=== PATIENT | female | born 1935 | race Caucasian/White ===

== ENCOUNTER → 2018-12-14 13:28 | Outpatient (CLI) | payer MEDICARE, SELFPAY ==
--- NOTE | 2018-12-14 13:33 | RAD_ITS ---
STUDY: X-RAY - LUMBAR SPINE REASON FOR EXAM: Female, 83 years old. Chronic lower back pain. TECHNIQUE: 3 view(s) of the lumbar spine were obtained. COMPARISON: MRI of the spine, June 09, 2015. FINDINGS: There is slight flattening of the lumbar lordosis. There is no substantial scoliosis. There is a normal alignment of the vertebrae. There is multilevel endplate spondylosis of the lumbar vertebrae. There is multi-level degenerative disc disease with multi-level disc space narrowing. There is no evidence of acute fracture or loss of vertebral axial height. Again seen are laminectomy defects at L4 and L5. There is atherosclerotic calcification of the abdominal aorta without a demonstrated aneurysm. RAD/Lumbar Spine 2 or 3 Views IMPRESSION: Degenerative and postsurgical changes of the spine, as detailed above. There is no major interval change when compared to the prior MRI. Electronically Signed: Emory Valentine DO at 17:24 EDT Tel [phone], Service support ,
== END ==
PROVIDERS: Family Provider Internal Medicine Cardiovascular Disease; PCP Internal Medicine Cardiovascular Disease; Referring Provider Anesthesiology Pain Medicine; Visit Provider Anesthesiology Pain Medicine
DX: M54.9 Dorsalgia, unspecified (principal)
CPT/HCPCS: 72100

== ENCOUNTER → 2020-04-14 16:51 | Outpatient (CLI) | payer MEDICARE, SELFPAY ==
[2020-04-14 17:31] LABS: Amphetamine Urine VISTA NEGATIVE (<1000 ng/mL); Barbiturate Urine VISTA NEGATIVE (< 200 ng/mL); Benzodiazepine Urine VISTA NEGATIVE (< 200 ng/mL); Cocaine Urine VISTA NEGATIVE (< 300 ng/mL); Ecstacy Urine VISTA NEGATIVE (< 500 ng/mL); Methadone Urine VISTA NEGATIVE (< 300 ng/mL); PCP Urine VISTA NEGATIVE (< 25 ng/mL); THC Urine VISTA NEGATIVE (< 50 ng/mL); Vista UDS pH Range 5
== END ==
PROVIDERS: PCP Internal Medicine; Referring Provider Anesthesiology Pain Medicine; Visit Provider Anesthesiology Pain Medicine
DX: F11.20 Opioid dependence, uncomplicated (principal)
CPT/HCPCS: 80307

== ENCOUNTER 2020-06-25 15:42 | Inpatient (IN) | payer MEDICARE, SELFPAY ==
[2020-06-25] VITALS (8 sets, daily range): BP systolic 137–171; BP diastolic 51–81; PULSE 71–82; RESP 16–24; TEMP 36.6–36.7; O2SAT 90–97; BMI 26.3; BMI 27.1
--- NOTE | 2020-06-25 16:08 | CT_ITS ---
STUDY: CT HEAD STROKE PROTOCOL W/O CONTRAST INJECTION REASON FOR EXAM: Female, 84 years old. His head, frequent falls, unsteady, hypertension, diabetes TECHNIQUE: Transaxial CT imaging of the brain was performed without administration of intravenous contrast material. Individualized dose optimization techniques were used for this CT. COMPARISON: No relevant priors. FINDINGS: Normal soft tissue structures. Normal calvarium. Mildly prominent ventricles and extra-axial spaces with frontal atrophy. Bilateral white matter microangiopathic ischemic changes of the cerebral hemispheres. Normal basal ganglia and thalami. Normal brainstem. Normal cerebellum. There is no intracranial hemorrhage. There are no findings of an acute ischemic infarction. Normal visualized paranasal sinuses. CT/Brain/Head without Contrast IMPRESSION: Age-related changes. No acute intracranial pathology of the brain. Electronically Signed: Stephon Bah DO at 17:24 EST Tel [phone], Service support ,
--- NOTE | 2020-06-25 16:09 | EKG12_ITS ---
Test Reason : Blood Pressure : / mmHG Vent. Rate : 078 BPM Atrial Rate : 077 BPM P-R Int : 000 ms QRS Dur : 078 ms QT Int : 402 ms P-R-T Axes : 000 014 015 degrees QTc Int : 458 ms Sinus vs Ectopic Atrial Rhythm Nonspecific ST and T wave abnormality Abnormal ECG Confirmed by SALLY ANDERSON, MANUELA ([id number]), technical editor JONNATHAN MCGINNIS ([id number]) on 06/30/2020 10:44:43 AM Referred By: TERRY Confirmed By:MANUELA ZAVALA MD
[2020-06-25 16:54] LABS: Absolute Lymphocyte Count 0.56 X10^3/uL (0.83-4.51); Absolute Neutrophil Count 10.9 X10^3/uL (2.0-7.7); Basophil# 0.05 X10^3/uL; Basophil% 0.4 % (0-1); Eosinophil# 0.14 X10^3/uL; Eosinophils% 1.1 % (0-5); Hematocrit 33.8 % (37-47); Hemoglobin 10.7 g/dL (12.0-15.0); Lymphocyte # 0.56 X10^3/ul (4.0); Lymphocyte % 4.5 % (19-41); Mean Corp Hgb Conc 31.7 g/dL (32-36); Mean Corpuscular Hgb 30.8 pg (27.0-32.0); Mean Corpuscular Volume 97.4 fL (81-99); Mean Platelet Vol. 9.7 fl (6.2-12.0); Monocyte# 0.66 X10^3/uL; Monocyte% 5.3 % (0-10); NRBC Flagged by Analyzer 0 % (0-5); Neutrophil % 88.3 % (47-70); POSITIVE DIFFERENTIAL YES; Platelet Count 300 K/mm3 (150-450); RBC Distribution Width CV 12.8 % (11.6-14.6); RBC Distribution Width SD 45.3 fl (35.1-43.9); Red Blood Count 3.47 M/mm3 (4.2-5.4); White Blood Count 12.4 K/mm3 (4.4-11.0)
--- NOTE | 2020-06-25 16:55 | RAD_ITS ---
STUDY: X-RAY CHEST REASON FOR EXAM: Female, 84 years old. Frequent falls TECHNIQUE: Frontal view COMPARISON: 11/28/2014 FINDINGS: The lungs are expanded. Interstitial prominence and patchy infiltrates, right more than left. Borderline size heart. Normal mediastinum and jazmyne. Normal visualized pulmonary arteries. Calcified aortic arch and descending thoracic aorta. Normal visualized thoracic spine. Normal visualized ribs, clavicles, and shoulders. There is no demonstrated abnormality of the visualized soft tissue structures of the upper abdomen. RAD/Chest 1 View (Portable) IMPRESSION: Interstitial prominence and patchy infiltrates, right more than left. Electronically Signed: Stephon Bah DO at 17:26 EST Tel [phone], Service support ,
[2020-06-25] MEDS: Diphth,Pertuss(Acell),Tet Vac 0.5 ML Vial IM (17:16)
[2020-06-25 17:17] LABS: Differential Indicated SCAN CRITERIA MET
[2020-06-25 17:20] LABS: Anisocytosis RARE; Macrocytosis RARE; Platelet Estimate ADEQUATE (ADEQ); Red Cell Morphology N CHROM NORMAL (NORM C&C)
--- NOTE | 2020-06-25 17:26 | ED.VISSUMM ---
- ER Visit Summary Date of Service: 06/25/20 Chief Complaint: Lightheaded, fall History of Present Illness: The patient is a [address] Rondon. She reports that 3 days ago she drank a small amount of a sample bottle of wine which was not homemade. She states that she woke up the next morning with her eyes crossed. When asked to further describe what this means she reports that she has felt unable to focus and has been lightheaded and off-balance since that time. States that when she got up that morning she fell and did hit her head. No loss of consciousness. She not on anticoagulants. She denies headache. No neck, shoulder, wrist, or hip pain. Patient does report that she has a skin tear to her right elbow. It is not painful. She is unsure of her last tetanus shot. She does on review of systems complain of a cough is been present for the past 2 weeks on and off. States that she has shortness of breath because of upper back pain. This is unchanged with movement or exertion. She has had chills. She denies any sick contacts. She does wear a mask. Patient reports that her upper back pain is fine at rest and it is 10 out of 10 with coughing. She denies any numbness, weakness, double vision, or blurred vision at this time. Physical Examination: Vitals: Stable. Afebrile. General: Well-nourished and well-developed. Head: Normocephalic atraumatic. Neck: Supple, no lymphadenopathy. No JVD. Nontender. Cardiovascular: Regular rate and rhythm. 2 out of 6 systolic murmur. Respiratory: No respiratory distress. Clear to auscultation bilaterally. Abdominal: Soft, nontender, nondistended, normal bowel sounds. No guarding, rebound, or peritoneal signs. Back: Nontender. No vertebral tenderness. No paraspinous muscular tenderness in the upper or lower back. Extremities: Nontender, no edema. 1.5 cm skin tear to the right olecranon process. No pain with range of motion. Skin: Normal color, no rash. Neurologic: Alert and oriented ?3. Cranial nerves II through XII are intact. Normal strength and sensation. Psych: Normal affect. Test Results: CBC shows a white count of 12.4 with 88 segmented neutrophils and 5 lymphocytes. H&H is 10.7 and 33.8. Chem-7 shows potassium of 5.4 (moderate hemolysis), chloride of 111, CO2 of 19, glucose of 201, BUN of 50, creatinine 4.36. Creatinine was 3.1?3.9 between 2012 and 2014. UA is negative. Troponin is negative. COVID-19 rapid antigen is negative. Clinical Impression(s) from Imaging Studies Brain CT 06/25/20 16:08 IMPRESSION: Age-related changes. No acute intracranial pathology of the brain. Electronically Signed: Stephon Bah DO at 17:24 EST Tel [phone], Service support , Chest X-Ray 06/25/20 16:55 IMPRESSION: Interstitial prominence and patchy infiltrates, right more than left. Electronically Signed: Stephon Bah DO at 17:26 EST Tel [phone], Service support , Emergency Department Course and Treatment: Patient is ambulatory pulse ox was 84% on room air. Orthostatic vital signs are negative. Patient had not taken her home medications. She was given Norvasc, atenolol, glimepiride here. She was given Rocephin and Zithromax IV. Treatment Plan: Patient was discussed with Dr. Dinero. She will be admitted to the hospital for further evaluation and treatment. Disposition: Admitted in improved condition. Impression: 1. Pneumonia. 2. Chronic renal insufficiency. 3. Hypoxia. This note was generated with [employer] dictation software. It may contain incorrect words, spelling, and punctuation that were not noted in review of the chart prior to signing ED Disposition - Plan for ED Patient: Referrals: Keo Rondon MD [Primary Care Provider] -
[2020-06-25 17:37] LABS: Anion Gap 6 (5-15); BUN 50 mg/dL (7-18); BUN/Creat Ratio 11.5 RATIO (10-20); Chloride 111 mmol/L (98-107); Creatinine, Serum 4.36 mg/dL (0.55-1.02); EST Glomerular Filtration Rate 10 mL/min (>60); Est Glom Filt Rate - Afr Amer 12 mL/min (>60); Estimated Creatinine Clearance 8.49 ml/min; Glucose 201 mg/dL (74-106); Potassium 5.4 mmol/L (3.5-5.1); Sodium Level 136 mmol/L (136-145)
[2020-06-25 17:43] LABS: Mucous, Urine 0 SEEN /hpf (<or=2+); Red Blood Cells-Urine 0 SEEN /hpf (0-5)
[2020-06-25 18:06] LABS: Color, Urine Yellow (Yellow); Glucose, Dipstick Normal (Normal); Ketone-Dipstick Negative (Negative); Leukocyte Esterase-Dipstick 100 /ul (Negative); Nitrite-Dipstick Negative (Negative); Occult Blood-Urine 10 /ul (Negative); Protein-Dipstick 100 mg/dl (Negative); Specific Gravity, Urine 1.015 (1.002-1.030); Urine Bilirubin Dipstick Negative (Negative); Urine Clarity Clear (Clear); Urine Urobilinogen Normal (Normal)
[2020-06-25 18:14] LABS: Bacteria RARE /hpf (None Seen); Squamous Epithelial Cells - UA 5-10 SEEN /hpf (5-10); White Blood Cells 0-5 SEEN /hpf (0-5)
[2020-06-25] MEDS: Ceftriaxone 1 GM/50 ML BAG IV (18:24)
[2020-06-25 18:27] LABS: D-Dimer Quantitative (DVT/PE) 2.88 FEU/ug/m (0.27-0.49)
--- NOTE | 2020-06-25 18:37 | HP.PCM_ITS ---
Problem List (1) Chronic back pain Status: Chronic Qualifiers: Back pain laterality: unspecified (2) Fe deficiency anemia Status: Chronic Qualifiers: Iron deficiency anemia type: unspecified iron deficiency Qualified Code(s): D50.9 - Iron deficiency anemia, unspecified (3) Hyperlipidemia Status: Chronic Qualifiers: Hyperlipidemia type: unspecified Qualified Code(s): E78.5 - Hyperlipidemia, unspecified (4) Hypertension Status: Chronic Qualifiers: Hypertension type: essential hypertension Qualified Code(s): I10 - Essential (primary) hypertension (5) Hypothyroid Status: Chronic Qualifiers: Hypothyroidism type: unspecified Qualified Code(s): E03.9 - Hypothyroidism, unspecified (6) Barretts esophagus Status: Chronic Qualifiers: Blank's esophagus type: with dysplasia of unspecified degree Qualified Code(s): K22.719 - Blank's esophagus with dysplasia, unspecified (7) GERD (gastroesophageal reflux disease) Status: Chronic Qualifiers: Esophagitis presence: esophagitis presence not specified Qualified Code(s): K21.9 - Gastro-esophageal reflux disease without esophagitis (8) Diabetes mellitus, type II Status: Chronic Qualifiers: Diabetes mellitus long term acute care registered nurse insulin use: with long term acute care registered nurse use Diabetes mellitus complication status: with other specified complication Qualified Code(s): E11.69 - Type 2 diabetes mellitus with other specified complication; Z79.4 - termite exterminator helper (current) use of insulin History of Present Illness Date of Admission: 06/25/20 Chief Complaint: SOB, fall - 2 days The patient is a 84 year old F with past medical history of hypertension, hyperlipidemia, type II DM, chronic back pain, history of Blank's esophagus/GERD who comes in with progressive shortness of breath, cough dog ongoing for couple of days and a fall of 1 day. Patient states that she has not been feeling well the last couple of days, she has chills but no fever, no loss of smell, no loss of taste, she has progressive shortness of breath. She complains of dizziness this morning, she felt off balance, she fell and hit her head and had a skin tear to her right elbow. At the time of being seen, patient stated that she felt a little better. Vitals in the ED showed temperature of 98.1F, heart rate 78 blood pressure 153/63, respiratory rate 78, SPO2 90% on room air, improved to 92% on 2 L of oxygen. BC count is 12.4, hemoglobin 10.7,. Hemoglobin was 11.4, platelet count 300, D-dimer is 2.88, sodium 136, potassium 5.4, chloride 101, bicarbonate 19, anion gap is 6, BUN is 50, creatinine 4.36, previous baseline was 3.6-3.9. UA is unremarkable. COVID-19 rapid antigen is negative. COVID-19 PCR is pending. Blood cultures are pending. CT scan of the brain showed age-related changes. No acute intracranial abnormalities. Chest x-ray shows interstitial prominence and patchy infiltrates, right more than left. Past Medical History Past Medical History (Chronic Problems): Chronic Problems Chronic back pain (Chronic) Fe deficiency anemia (Chronic) Chronic kidney disease (Chronic) Hyperlipidemia (Chronic) Overweight (BMI 25.0-29.9) (Chronic) Anemia of chronic disease (Chronic) Hypertension (Chronic) Hypothyroid (Chronic) Lumbar stenosis (Chronic) Barretts esophagus (Chronic) GERD (gastroesophageal reflux disease) (Chronic) Diabetes mellitus, type II (Chronic) Allergies No Known Allergies Allergy (Verified 03/16/13 18:59) Home Medications: Ambulatory Orders Medication Instructions Recorded Ezetimibe/Simvastatin [Vytorin 1 tablet PO DAILY 03/16/13 10-40 MG Tablet] Atenolol [Tenormin (beta kamron)] 50 mg PO DAILY #30 03/18/13 Ferrous Sulfate 325 mg PO DAILY #30 03/18/13 Levothyroxine [Synthroid] 75 mcg PO DAILY #30 03/18/13 Omeprazole [Prilosec] 20 mg PO DAILY #30 03/18/13 Biotin 1,000 mg PO DAILY 06/18/13 Glimepiride 4 mg PO BID 06/18/13 NIFEdipine [Procardia Xl] 60 mg PO DAILY 08/06/13 Oxycodone HCl/Acetaminophen 1 - 2 tablet PO Q6H PRN PRN #30 08/15/13 [Percocet 5-325] tablet Allopurinol 100 mg PO 06/25/20 Amlodipine [Norvasc] 10 mg PO DAILY 06/25/20 Atorvastatin Calcium [Lipitor] 40 mg PO QHS 06/25/20 Insulin Glargine [Lantus SoloStar 38 units SQ QHS 06/25/20 Pen] Surgical History: appendectomy, cholecystectomy - Open, hysterectomy, tonsillectomy, - - Back surgery, Cataract. Psychiatric History: No pertinent psych hx RELATIONSHIP ADVISOR History: No pertinent RELATIONSHIP ADVISOR history Lives: Spouse/ Significant Other Smoking Status: Former smoker Tobacco Use: Non-smoker Alcohol: Occasional - occasional beer Drugs: None - *Family History Maternal History Items: Heart Disease Paternal History Items: Unknown Sibling History Items: Diabetes, Heart Disease Review of Systems Constitutional: Reports: Anorexia, Chills, Malaise, Weakness, Fatigue. Denies: Fever, Night Sweats, Weight Change Eyes: Denies: Blurred vision, Cataracts, Conjunctivae Inflammation HEENT: Denies: Difficulty Swallowing, Head Aches, Hearing Changes, Sinus Congestion, Sinus Drainage Cardiovascular: Reports: Light Headedness. Denies: Chest Pain, Claudication, Orthopnea, Palpitations, Paroxysmal Noc. Dyspnea, Syncope Respiratory: Reports: Shortness of Breath, Shortness of breath at rest, S hortness of breath upon exertion, Sputum production. Denies: Cough Gastrointestinal: Denies: Abdominal Pain, Constipation, Hematemesis, Hematochezia, Nausea, Vomiting Genitourinary: Denies: Dysuria, Frequency, Incontinence Musculoskeletal: Denies: Joint Pain, Joint stiffness, Joint swelling, Joint Tenderness Skin: Denies: Pruritis, Rash, Wounds Neurological: Denies: Difficulty swallowing, Focal weakness, Numbness, Tingling Psychiatric: Denies: Anxiety, Depression, Homicidal Ideations, Suicidal Ideations Hematologic/ Lymphatic: Denies: Easy Bruising, Easy Bleeding VTE Information - Inpt Only VTE Present on Admission: No VTE Pharm Prophylaxis ordered?: Yes - Physical Exam Vitals/I&O's: Vital Signs Temp Pulse Resp BP Pulse Ox 97.9 F 72 24 H 153/71 H 97 06/25/20 18:28 06/25/20 18:28 06/25/20 18:28 06/25/20 18:28 06/25/20 18:28 Oxygen Flow Rate (L/min) 2 Oxygen Delivery Method Nasal Cannula Weight: 71.8 kg Body Mass Index (BMI) 26.3 Finger Stick Blood Glucose 142 General: Alert, Oriented x3, Cooperative, No apparent distress, - - On 2 L of oxygen HEENT: Atraumatic, PERRLA, EOMI, Normocephalic Oral: Moist Mucosa Neck: Supple Lungs: Diminished Cardiovascular: Regular rate, Regular Rhythm, Normal S1, Normal S2, No murmurs Abdomen: Bowel Sounds Present, Soft, Non Tender, Non-Distended, No Hepato- splenomegaly Extremities: Edema - Bilateral pedal edema +1 Skin: No rashes Musculoskeletal: No Tenderness to Palpation of Joints or Extremities Lymphatic: No Cervical, Supraclavicular, or Inguinal Adenopathy Neurological: Cranial nerves II-XII grossly intact, Neuro grossly intact Psych/Mental Status: Normal Affect, Appropriate Microbiology Past 72 Hours 06/25/20 16:30 Mucosa - Nose SARS-CoV-2 Antigen (Rapid) - Final Laboratory Results 06/25/20 16:30: WBC 12.4 H, RBC 3.47 L, Hgb 10.7 L, Hct 33.8 L, MCV 97.4, MCH 30.8, MCHC 31.7 L, RDW Std Deviation 45.3 H, RDW Coeff of Ritchie 12.8, Plt Count 300, MPV 9.7, Immature Gran % (Auto) 0.400, Neut % (Auto) 88.3 H, Lymph % (Auto) 4.5 L, [place] % (Auto) 5.3, Eos % (Auto) 1.1, Baso % (Auto) 0.4, Absolute Neuts (auto) 10.9 H, Absolute Lymphs (auto) 0.56 L, Nucleated RBC % 0, Differential Comment SEE COMMENT, Platelet Estimate ADEQUATE, RBC Morphology N CHROM, Anisocytosis RARE, Macrocytosis RARE 06/25/20 16:30: D-Dimer Quant (PE/DVT) 2.88 H* 06/25/20 16:30: Sodium 136, Potassium 5.4 H, Chloride 111 H, Carbon Dioxide 19.0 L, Anion Gap 6, BUN 50 H, Creatinine 4.36 H, Estim Creat Clear Calc 8.49, Est GFR (MDRD) Af Amer 12 L, Est GFR (MDRD) Non-Af 10 L, BUN/Creatinine Ratio 11.5, Glucose 201 H, Calcium 10.0, Troponin I < 0.015 06/25/20 17:15: Urine Color Yellow, Urine Clarity Clear, Urine pH 5.0, Ur Specific [place] 1.015, Urine Protein 100 H, Urine Glucose (UA) Normal, Urine Ketones Negative, Urine Occult Blood 10 H, Urine Nitrite Negative, Urine Bilirubin Negative, Urine Urobilinogen Normal, Ur Leukocyte Esterase 100 H, Urine RBC 0 SEEN, Urine WBC 0-5 SEEN, Ur Squamous Epith Cells 5-10 SEEN, Urine Bacteria RARE, Urine Mucus 0 SEEN 06/25/20 18:15: Lactic Acid Pending Current Medications Glimepiride (Glimepiride 4 Mg Tablet) 4 mg PO DAILY@0800 VANNESSA Azithromycin 500 mg/ Dextrose 255 mls @ 250 mls/hr IV X1 ONE Stop: 06/25/20 18:55 Assessment/Plan 1. Acute hypoxic respiratory insufficiency secondary to probable COVID-19 pneumonia Patient is on 2 L of oxygen, not on oxygen at home Continue with breathing treatments, po steroids, encourage use of incentive spirometer. Wean off oxygen for SPO2 more than 94% 2. Probable acute COVID-19 pneumonia, chest x-ray suspicious for interstitial prominence COVID-19 rapid antigen and PCR is negative Started on IV ceftriaxone and azithromycin, continue same Urine Legionella enterococcal antigen P.o. Decadron ID consult 3. RISHI on CKD stage IV, baseline creatinine is between 3.6-3.9 Admitted with creatinine of 4.36 Give gentle IV fluids at 50 cc an hour for 500 mL Repeat blood work in a.m. 4. Hyperkalemia, potassium is 5.4, not on potassium supplements likely secondary to #3 Repeat blood work in a.m. 5. Elevated D-dimer of 2.88, cannot do a CT of the chest on account of RISHI on CKD stage IV Started on therapeutic Lovenox We will get a VQ scan 6. HGypertension, uncontrolled, continue on amlodipine, atenolol 7. Type II DM, insulin-dependent, continue on home insulin regimen Continue with blood glucose checks with insulin sliding scale 8. Hypothyroidism, continue on Synthroid 9. Hyperlipidemia, continue on statin 10. DVT prophylaxis -therapeutic Lovenox 11. CODE STATUS: DNRCC I discussed and explained in details the various types of CODE STATUS-full code, DNR CCA, DNR CC. Patient chose DNR CC. She does not want to be resuscitated in the event of a cardiopulmonary arrest. Time spent discussing CODE STATUS 18 minutes Inpatient E&M: 74333 Init Hosp L3 Procedures: 33113 Advncd Care Plan 30 Min
[2020-06-25] MEDS: Enoxaparin 80 MG/0.8 ML Syringe 70 MG SC (18:57)
[2020-06-25] MEDS: HYDROcodone Bitartrate/Apap 5/325 Tablet PO (18:57)
[2020-06-25 18:58] LABS: Lactic Acid 1.4 mmol/L (0.4-1.9)
--- NOTE | 2020-06-25 20:28 | ED.RN ---
MS NOTIFIED HOME MEDS NOT GIVEN IN ED.
--- NOTE | 2020-06-25 20:36 | ED.RN ---
SPOUSE POORNIMA UPDATED ON ADMISSION, PHONE NUMBER FOR MS2 GIVEN, UPDATED ON VISITOR POLICY.
[2020-06-26] VITALS (7 sets, daily range): BP systolic 131–154; BP diastolic 56–73; PULSE 76–80; RESP 16–17; TEMP 36.6–37.2; O2SAT 90–97
[2020-06-26] MEDS: dexAMETHasone 2 MG TABLET 6 MG PO ×2 (00:14→08:08)
[2020-06-26] MEDS: Insulin Lispro 100 UNIT/ML INSULN.PEN SC ×5 (00:14→20:17)
[2020-06-26] MEDS: Atorvastatin Calcium 40 MG Tablet PO ×2 (00:15)
[2020-06-26] MEDS: 0.9% Normal Saline 1,000 ML 50 ML IV (00:15)
[2020-06-26] MEDS: Atenolol 50 MG Tablet PO ×2 (00:26→08:10)
[2020-06-26 03:41] LABS: Bedside Glucose 180 mg/dL (70-110)
[2020-06-26 05:29] LABS: Absolute Lymphocyte Count 0.42 X10^3/uL (0.83-4.51); Absolute Neutrophil Count 9.6 X10^3/uL (2.0-7.7); Basophil# 0.05 X10^3/uL; Basophil% 0.5 % (0-1); Eosinophil# 0.08 X10^3/uL; Eosinophils% 0.8 % (0-5); Hemoglobin 9.9 g/dL (12.0-15.0); Lymphocyte # 0.42 X10^3/ul (4.0); Mean Corp Hgb Conc 30.9 g/dL (32-36); Mean Corpuscular Hgb 30.2 pg (27.0-32.0); Mean Corpuscular Volume 97.6 fL (81-99); Mean Platelet Vol. 9.8 fl (6.2-12.0); Monocyte# 0.26 X10^3/uL; Monocyte% 2.5 % (0-10); NRBC Flagged by Analyzer 0 % (0-5); Neutrophil # 9.62 X10^3/uL (2.7-7.7); Neutrophil % 91.9 % (47-70); POSITIVE DIFFERENTIAL YES; Platelet Count 292 K/mm3 (150-450); RBC Distribution Width CV 12.9 % (11.6-14.6); RBC Distribution Width SD 46.5 fl (35.1-43.9); Red Blood Count 3.28 M/mm3 (4.2-5.4); White Blood Count 10.5 K/mm3 (4.4-11.0)
[2020-06-26 05:31] LABS: Differential Indicated SCAN CRITERIA MET
[2020-06-26 05:45] LABS: ALB/GLOB Ratio 0.6 RATIO (0.9-2.4); AST(SGOT) 31 U/L (15-37); Alanine Aminotransfer ALT/SGPT 50 U/L (13-56); Albumin, Serum 2.9 g/dL (3.2-5.0); Alkaline Phosphatase 141 U/L (45-117); Anion Gap 9 (5-15); BUN 46 mg/dL (7-18); BUN/Creat Ratio 11.3 RATIO (10-20); Calcium,Total 9.7 mg/dL (8.5-10.1); Chloride 110 mmol/L (98-107); Creatinine, Serum 4.07 mg/dL (0.55-1.02); EST Glomerular Filtration Rate 11 mL/min (>60); Est Glom Filt Rate - Afr Amer 13 mL/min (>60); Estimated Creatinine Clearance 8.73 ml/min; Globulin 4.5 g/dL (2.2-4.2); Glucose 153 mg/dL (74-106); Potassium 4.4 mmol/L (3.5-5.1); Protein, Total 7.4 g/dL (6.4-8.2); Sodium Level 136 mmol/L (136-145)
--- NOTE | 2020-06-26 05:55 | NM_ITS ---
CLINICAL: 84-year-old female with reported history of shortness of breath and hypoxemia. VENTILATION-PERFUSION LUNG SCINTIGRAPHY COMPARISON: Plain film chest radiograph 06/26/2020 FINDINGS: The patient was administered 49.7 mCi 99m Tc DTPA aerosol. The aerosol ventilation study demonstrates heterogeneous ventilation in the bilateral lung villanueva without corresponding radiographic changes visualized on review of plain film chest x-ray dated 06/26/2020. Central clumping of the aerosol is identified in the bilateral hemithorax. Following the intravenous administration of 5.8 mCi of 99m Tc MAA, the pulmonary perfusion study reveals matching non-uniform perfusion in the right and left lungs correlating with the previously defined ventilation pattern. There is a single small peripheral perfusion abnormality noted in the right mid lateral lung corresponding to previously defined ventilation changes. No moderate subsegmental or large segmental ventilation-perfusion mismatches are noted. There are regions of retained normal perfusion visualized. 1. VERY LOW PROBABILITY FOR PULMONARY EMBOLUS (<10%) 99m Tc DTPA aerosol ventilation / 99m Tc MAA pulmonary perfusion imaging examination, according to PIOPED II interpretive criteria with regard given to the presence of 1-3 small subsegmental unmatched perfusion defects. (Sotsman et al, Radiology 246: 941, 2008 Sokaron et al, J Nucl Med 49: 1741, 2008). 2. Central clumping of the aerosol may be secondary to obstructive airway mechanics and or clinical tachypnea. Electronically Signed: Landen Miller DO at 14:20 EST Tel , Service support , NM/Lung Scan Vent/Perf
[2020-06-26 07:15] LABS: Bedside Glucose 166 mg/dL (70-110)
[2020-06-26] MEDS: Glimepiride 4 MG Tablet PO ×2 (08:07→16:51)
[2020-06-26] MEDS: Enoxaparin 80 MG/0.8 ML Syringe 70 MG SC (08:09)
[2020-06-26] MEDS: Pantoprazole Sodium 20 MG Tablet PO (08:09)
[2020-06-26] MEDS: Levothyroxine 75 MCG Tablet PO (08:09)
[2020-06-26] MEDS: Ferrous Sulfate 325 MG Tablet PO (08:09)
--- NOTE | 2020-06-26 10:00 | RAD_ITS ---
STUDY: X-RAY CHEST REASON FOR EXAM: Female, 84 years old. Hypoxia, concern for COVID TECHNIQUE: PA and lateral views of the chest. COMPARISON: Comparison is made with prior study dated 06/25/2020. FINDINGS: Improved aeration of both lungs as compared to prior study. Mild residual changes persist at the lung bases. There is no demonstrated pleural abnormality. Normal size heart. Normal mediastinum and jazmyne. Normal visualized pulmonary arteries. There is atherosclerotic calcification of the aortic arch with tortuosity. There are diffuse degenerative changes of the visualized thoracic spine. Normal visualized ribs, clavicles, and shoulders. Prior cholecystectomy. RAD/Chest PA and Lateral IMPRESSION: Improved aeration of both lungs although residual changes persist. Electronically Signed: Garrett Irwin MD at 10:42 EST , Service support ,
--- NOTE | 2020-06-26 10:38 | CASEMGMT ---
RN CM Assessment Note Introduced role of CM to patient's via phone. Demographics, PCP verified. called in to see if loredo could be delivered to unit and stated his was sleeping. RN CM inquired if he was able to assist with assessment and he was. Presentation: fall, hit head no LOC, acute resp insufficiency, possible COVID 19- test negative @ [facility] Diagnosis: Probable COVID 19 pneumonia PCP: Dr. Rondon Specialists: Dr. Luke- pt has back pain Insurance: [employer] [facility] PPO Preferred [facility]acy: [facility] Prescription Benefit: yes LNOK: Landen Garza Living Arrangements: Lives with her in one story home with 3 steps into home. Per she is independent with ADL, but past few days was dizzy and weak and did not shower as she was afraid of falling. Tranportation: patient can drive, but does driving. DME: walker. No home oxygen and no cpap. No preference on DME provider if oxygen is needed. HHC: none past SNF: none past Patient DC Goals: Home on discharge DC Plan: anticipate home on discharge. PT/OT evaluation are pending. states he is able to assist with care needs. CM available for discharge planning coordination. Contact CM for any concerns/needs that may arise. Jessica MARLOW RN ACM
[2020-06-26] MEDS: amLODIPine 10 MG Tablet PO (12:38)
[2020-06-26 13:21] LABS: Bedside Glucose 234 mg/dL (70-110)
--- NOTE | 2020-06-26 14:31 | CON.PCM_ITS ---
Problem List (1) Fall Status: Acute Reason for Consult: suspected covid Consulted by: Dr. Tse History of Present Illness: The patient is a 84 year old F presented 06/25 with 1-2 days of weakness, dizziness, fall at home on 06/23. No sick contacts, has been fine. Drank some wine 06/22, woke up in the AM with trouble seeing, unsteadiness. Had a fall. No fever, no n/v/d, no change in taste/smell, mild chronic cough, no aches. Scrapped her R elbow, mild pain. Came to ED, admitted with suspected covid, put on dex and full dose lovenox. Feeling fine today. Full ROS performed and neg except as noted above. - Medical History Past Medical History (Chronic Problems): Chronic Problems Chronic back pain (Chronic) Fe deficiency anemia (Chronic) Chronic kidney disease (Chronic) Hyperlipidemia (Chronic) Overweight (BMI 25.0-29.9) (Chronic) Anemia of chronic disease (Chronic) Hypertension (Chronic) Hypothyroid (Chronic) Lumbar stenosis (Chronic) Barretts esophagus (Chronic) GERD (gastroesophageal reflux disease) (Chronic) Diabetes mellitus, type II (Chronic) Allergies/Adverse Reactions: Allergies No Known Allergies Allergy (Verified 03/16/13 18:59) Home Medications: Ambulatory Orders Medication Instructions Recorded Ezetimibe/Simvastatin [Vytorin 1 tablet PO DAILY 03/16/13 10-40 MG Tablet] Atenolol [Tenormin (beta kamron)] 50 mg PO DAILY #30 03/18/13 Ferrous Sulfate 325 mg PO DAILY #30 03/18/13 Levothyroxine [Synthroid] 75 mcg PO DAILY #30 03/18/13 Omeprazole [Prilosec] 20 mg PO DAILY #30 03/18/13 Biotin 1,000 mg PO DAILY 06/18/13 Glimepiride 4 mg PO BID 06/18/13 Oxycodone HCl/Acetaminophen 1 - 2 tablet PO Q6H PRN PRN #30 08/15/13 [Percocet 5-325] tablet Allopurinol 100 mg PO 06/25/20 Amlodipine [Norvasc] 10 mg PO DAILY 06/25/20 Atorvastatin Calcium [Lipitor] 40 mg PO QHS 06/25/20 Insulin Glargine [Lantus SoloStar 38 units SQ QHS 06/25/20 Pen] - Social History SMOKING STATUS:: Former smoker Vital Signs Temp Pulse Resp BP Pulse Ox 97.9 F 78 16 154/67 H 97 06/26/20 14:01 06/26/20 14:01 06/26/20 14:01 06/26/20 14:01 06/26/20 14:01 Oxygen Flow Rate (L/min) 3 Oxygen Delivery Method Nasal Cannula Weight: 71.4 kg Body Mass Index (BMI) 27.1 Finger Stick Blood Glucose 142 Microbiology Past 72 Hours 06/26/20 06:45 Legionella Antigen - Final Urine, Clean Catch Streptococcus pneumoniae Antigen (M - Final 06/25/20 16:30 SARS-CoV-2 Antigen (Rapid) - Final Mucosa - Nose Laboratory Tests Past 24 Hrs 06/25/20 06/25/20 06/25/20 16:30 16:30 16:30 WBC 12.4 H RBC 3.47 L Hgb 10.7 L Hct 33.8 L MCV 97.4 MCH 30.8 MCHC 31.7 L RDW Std Deviation 45.3 H RDW Coeff of Ritchie 12.8 Plt Count 300 MPV 9.7 Immature Gran % (Auto) 0.400 Neut % (Auto) 88.3 H Lymph % (Auto) 4.5 L [place] % (Auto) 5.3 Eos % (Auto) 1.1 Baso % (Auto) 0.4 Absolute Neuts (auto) 10.9 H Absolute Lymphs (auto) 0.56 L Nucleated RBC % 0 Differential Comment SEE COMMENT Platelet Estimate ADEQUATE RBC Morphology N CHROM Anisocytosis RARE Macrocytosis RARE D-Dimer Quant (PE/DVT) 2.88 H* Sodium 136 Potassium 5.4 H Chloride 111 H Carbon Dioxide 19.0 L Anion Gap 6 BUN 50 H Creatinine 4.36 H Estim Creat Clear Calc 8.49 Est GFR (MDRD) Af Amer 12 L Est GFR (MDRD) Non-Af 10 L BUN/Creatinine Ratio 11.5 Glucose 201 H Lactic Acid Calcium 10.0 Total Bilirubin AST ALT Alkaline Phosphatase Troponin I < 0.015 B-Natriuretic Peptide Total Protein Albumin Globulin Albumin/Globulin Ratio Urine Color Urine Clarity Urine pH Ur Specific [place] Urine Protein Urine Glucose (UA) Urine Ketones Urine Occult Blood Urine Nitrite Urine Bilirubin Urine Urobilinogen Ur Leukocyte Esterase Urine RBC Urine WBC Ur Squamous Epith Cells Urine Bacteria Urine Mucus COVID-19 (JOSE MANUEL) 06/25/20 06/25/20 06/25/20 16:30 17:15 18:15 WBC RBC Hgb Hct MCV MCH MCHC RDW Std Deviation RDW Coeff of Ritchie Plt Count MPV Immature Gran % (Auto) Neut % (Auto) Lymph % (Auto) [place] % (Auto) Eos % (Auto) Baso % (Auto) Absolute Neuts (auto) Absolute Lymphs (auto) Nucleated RBC % Differential Comment Platelet Estimate RBC Morphology Anisocytosis Macrocytosis D-Dimer Quant (PE/DVT) Sodium Potassium Chloride Carbon Dioxide Anion Gap BUN Creatinine Estim Creat Clear Calc Est GFR (MDRD) Af Amer Est GFR (MDRD) Non-Af BUN/Creatinine Ratio Glucose Lactic Acid 1.4 Calcium Total Bilirubin AST ALT Alkaline Phosphatase Troponin I B-Natriuretic Peptide 379.0 H Total Protein Albumin Globulin Albumin/Globulin Ratio Urine Color Yellow Urine Clarity Clear Urine pH 5.0 Ur Specific [place] 1.015 Urine Protein 100 H Urine Glucose (UA) Normal Urine Ketones Negative Urine Occult Blood 10 H Urine Nitrite Negative Urine Bilirubin Negative Urine Urobilinogen Normal Ur Leukocyte Esterase 100 H Urine RBC 0 SEEN Urine WBC 0-5 SEEN Ur Squamous Epith Cells 5-10 SEEN Urine Bacteria RARE Urine Mucus 0 SEEN COVID-19 (JOSE MANUEL) 06/25/20 06/26/20 06/26/20 18:50 04:40 04:40 WBC 10.5 RBC 3.28 L Hgb 9.9 L Hct 32.0 L MCV 97.6 MCH 30.2 MCHC 30.9 L RDW Std Deviation 46.5 H RDW Coeff of Ritchie 12.9 Plt Count 292 MPV 9.8 Immature Gran % (Auto) 0.300 Neut % (Auto) 91.9 H Lymph % (Auto) 4.0 L [place] % (Auto) 2.5 Eos % (Auto) 0.8 Baso % (Auto) 0.5 Absolute Neuts (auto) 9.6 H Absolute Lymphs (auto) 0.42 L Nucleated RBC % 0 Differential Comment Platelet Estimate RBC Morphology Anisocytosis Macrocytosis D-Dimer Quant (PE/DVT) Sodium 136 Potassium 4.4 Chloride 110 H Carbon Dioxide 17.0 L Anion Gap 9 BUN 46 H Creatinine 4.07 H Estim Creat Clear Calc 8.73 Est GFR (MDRD) Af Amer 13 L Est GFR (MDRD) Non-Af 11 L BUN/Creatinine Ratio 11.3 Glucose 153 H Lactic Acid Calcium 9.7 Total Bilirubin 0.40 AST 31 ALT 50 Alkaline Phosphatase 141 H Troponin I B-Natriuretic Peptide Total Protein 7.4 Albumin 2.9 L Globulin 4.5 H Albumin/Globulin Ratio 0.6 L Urine Color Urine Clarity Urine pH Ur Specific [place] Urine Protein Urine Glucose (UA) Urine Ketones Urine Occult Blood Urine Nitrite Urine Bilirubin Urine Urobilinogen Ur Leukocyte Esterase Urine RBC Urine WBC Ur Squamous Epith Cells Urine Bacteria Urine Mucus COVID-19 (JOSE MANUEL) Not Detected - Other Studies Radiology: [] reviewed Other Studies: [] Route of nutrition/ use of supplements: [] Nutritional Intake: [] IV Site: [] [place] Catheter: [] - Physical Exam General: Alert, Oriented x3, Cooperative, No apparent distress HEENT: Atraumatic, PERRLA, EOMI Neck: Supple, No Nodes Lungs: Clear to auscultation, Normal air movement Cardiovascular: Regular rate, Regular Rhythm Abdomen: Soft, Non Tender, Non-Distended Extremities: No edema Skin: No rashes, Skin Tear - R elbow IV Site: Peripheral, without redness Musculoskeletal: No Tenderness to Palpation of Joints or Extremities Neurological: Cranial nerves II-XII grossly intact - Assessment/Plan Antibiotics: [] Assessment/Plan: [] fall, weakness at home, RISHI on CKD, hypoxia. Labs show lymphopenia, elevated d- dimer. In ED, reported some dyspnea and cough. Asymptomatic today. On dex, lovenox 70mg qdaily. VQ neg for PE. Covid pcr and Ag neg. No sick contacts. UAg neg. Overall low/moderate suspicion for covid. CXR improved today. Cr slightly better. Would decrease dose of lovenox, plan on 10 days of dex, hopefully home soon, quarantine for another week. Will follow, thank you
[2020-06-26 18:05] LABS: Bedside Glucose 231 mg/dL (70-110)
--- NOTE | 2020-06-26 18:44 | PN_ITS ---
Patient Problems: Active and Suspected Problems Fall (Acute) Subjective: Doing well, feels much better today. Would like to go home soon as possible Vitals/I&O's: Vital Signs Temp Pulse Resp BP Pulse Ox 97.9 F 78 16 154/67 H 90 06/26/20 14:01 06/26/20 14:01 06/26/20 14:01 06/26/20 14:01 06/26/20 15:58 Oxygen Flow Rate (L/min) 3 Oxygen Delivery Method Nasal Cannula Weight: 157 lb 6.561 oz Body Mass Index (BMI) 27.1 Finger Stick Blood Glucose 142 Intake and Output for Last 24 Hours 06/24/20 06/25/20 06/26/20 23:59 23:59 23:59 Intake Total 305 / 305 1000 / 1000 Balance 305 / 305 1000 / 1000 General: Alert, Oriented x3, Cooperative, No apparent distress HEENT: Atraumatic, PERRLA, EOMI, Normocephalic Oral: Moist Mucosa Neck: Supple, No JVD Lungs: Normal air movement, No rhonchi, No wheeze, No rales, Diminished Cardiovascular: Regular rate, Regular Rhythm, Normal S1, Normal S2, No murmurs Abdomen: Soft, Non Tender, Non-Distended, No Hepato-splenomegaly Extremities: Capillary Refill Less than 3 Seconds, Edema - Trace Skin: No rashes, No breakdown Neurological: Neuro grossly intact, Sensory exam intact to light touch and pain Psych/Mental Status: Normal Affect, Appropriate Microbiology Past 72 Hours 06/26/20 06:45 Urine, Clean Catch Legionella Antigen - Final 06/26/20 06:45 Urine, Clean Catch Streptococcus pneumoniae Antigen (M - Final 06/25/20 16:30 Mucosa - Nose SARS-CoV-2 Antigen (Rapid) - Final Laboratory Results 06/25/20 16:30: B-Natriuretic Peptide 379.0 H 06/25/20 18:15: Lactic Acid 1.4 06/25/20 18:50: COVID-19 (JOSE MANUEL) Not Detected 06/26/20 00:12: POC Glucose 180 H 06/26/20 04:40: WBC 10.5, RBC 3.28 L, Hgb 9.9 L, Hct 32.0 L, MCV 97.6, MCH 30.2, MCHC 30.9 L, RDW Std Deviation 46.5 H, RDW Coeff of Ritchie 12.9, Plt Count 292, MPV 9.8, Immature Gran % (Auto) 0.300, Neut % (Auto) 91.9 H, Lymph % (Auto) 4.0 L, Day % (Auto) 2.5, Eos % (Auto) 0.8, Baso % (Auto) 0.5, Absolute Neuts (auto) 9.6 H, Absolute Lymphs (auto) 0.42 L, Nucleated RBC % 0 06/26/20 04:40: Sodium 136, Potassium 4.4, Chloride 110 H, Carbon Dioxide 17.0 L , Anion Gap 9, BUN 46 H, Creatinine 4.07 H, Estim Creat Clear Calc 8.73, Est GFR (MDRD) Af Amer 13 L, Est GFR (MDRD) Non-Af 11 L, BUN/Creatinine Ratio 11.3, Gl ucose 153 H, Calcium 9.7, Total Bilirubin 0.40, AST 31, ALT 50, Alkaline Phosphatase 141 H, Total Protein 7.4, Albumin 2.9 L, Globulin 4.5 H, Albumin/Globulin Ratio 0.6 L 06/26/20 06:29: POC Glucose 166 H 06/26/20 12:33: POC Glucose 234 H 06/26/20 16:48: POC Glucose 231 H Current Medications Acetaminophen (Acetaminophen 325 Mg Tablet) 650 mg PO Q6H PRN PRN PRN Reason: Pain Score 1-10/Temp > 100.7 F Al Hydroxide/Mg Hydroxide (Mag Hydrox/Al Hydrox/Simeth 30 Ml Udc) 30 ml PO Q6H PRN PRN PRN Reason: Gastric Burning Amlodipine Besylate (Amlodipine 10 Mg Tablet) 10 mg PO DAILY COUNT INCLUDES THE [facility] Last Admin: 06/26/20 12:38 Dose: 10 mg Documented by: Atenolol (Atenolol 50 Mg Tablet) 50 mg PO DAILY COUNT INCLUDES THE [facility] Last Admin: 06/26/20 08:10 Dose: 50 mg Documented by: Atorvastatin Calcium (Atorvastatin Calcium 40 Mg Tablet) 40 mg PO QHS COUNT INCLUDES THE [facility] Last Admin: 06/26/20 00:15 Dose: 40 mg Documented by: Dexamethasone (Dexamethasone 2 Mg Tablet) 6 mg PO DAILY COUNT INCLUDES THE [facility] Last Admin: 06/26/20 08:08 Dose: 6 mg Documented by: Dextrose (Dextrose 50%-Water 25 Gm/50 Ml Disp.Syrin) 0 gm IV X1 PRN; Protocol PRN Reason: Hypoglycemia Ezetimibe (Ezetimibe 10 Mg Tablet) 10 mg PO [facility] Enoxaparin Sodium (Enoxaparin 80 Mg/0.8 Ml Syringe) 70 mg SC DAILY COUNT INCLUDES THE [facility] Last Admin: 06/26/20 08:09 Dose: 70 mg Documented by: Ferrous Sulfate (Ferrous Sulfate 325 Mg Tablet) 325 mg PO DAILY COUNT INCLUDES THE [facility] Last Admin: 06/26/20 08:09 Dose: 325 mg Documented by: [facility]imepiride ([facility] 4 Mg [facility]) [facility] Last Admin: 06/26/20 16:51 Dose: 4 mg Documented by: Glucagon (Glucagon 1 Mg/Ml Syringe) 1 mg IM .X1 PRN PRN Reason: Hypoglycemia Insulin Glargine (Insulin Glargine 100 Units/Ml Pen) 38 units SC QHS COUNT INCLUDES THE [facility] Last Admin: 06/26/20 00:15 Dose: 38 u Documented by: Insulin Human Lispro (Insulin Lispro 100 Unit/Ml Insuln.Pen) 0 unit SC [facility]; Protocol Last Admin: 06/26/20 16:51 Dose: 3 u Documented by: Levothyroxine Sodium (Levothyroxine 75 Mcg Tablet) 75 mcg PO DAILY COUNT INCLUDES THE [facility] Last Admin: 06/26/20 08:09 Dose: 75 mcg Documented by: Magnesium Hydroxide (Magnesium Hydroxide 30 Ml Udc) 30 ml PO DAILY PRN PRN PRN Reason: Constipation Ondansetron HCl (Ondansetron 4 Mg/2 Ml Vial) 4 mg IV Q8H PRN PRN PRN Reason: NAUSEA/VOMITING Pantoprazole Sodium (Pantoprazole Sodium 20 Mg Tablet) 20 mg PO DAILY COUNT INCLUDES THE [facility] Last Admin: 06/26/20 08:09 Dose: 20 mg Documented by: Senna/Docusate Sodium (Senna/Docusate Sodium 1 Tablet) 2 tablet PO BID PRN PRN PRN Reason: Constipation Sodium Chloride (0.9% Saline Lock 10 Ml Syringe) 10 - 40 ml IV UD PRN PRN Reason: SALINE FLUSH STROKE Vital Signs/Narrative: Vital Signs Pulse Ox 06/26/20 15:58 90 06/26/20 15:16 97 Medical Necessity - Tobacco Use Smoking Status: Former smoker Tobacco Use: Non-smoker Assessment/Plan All Active Problems Fall (Acute) 1. Acute hypoxic respiratory insufficiency secondary to clinically suspicious COVID-19 pneumonia/RISHI on CKD 4 -Presentation she required 2 L of oxygen when she is not on oxygen at home -Continue with Decadron -We will likely need low-dose anticoagulation of 2.5 mg of Eliquis p.o. twice daily on discharge 14 days given her elevated D-dimer despite the fact that her VQ scan was negative for a PE. Her initial chest x-ray had some interstitial findings therefore the accuracy of the VQ scan is in question -PCR and antigen for Covid were both negative -Appreciate ID assistance -Pain is improving, will continue to monitor. Baseline is 3.6-3.9 2. DM 2 -She is insulin-dependent, which we will continue. -We will have to monitor blood sugar closely secondary to the need of Decadron, will make adjustments as necessary 3. HTN/HLD -Blood pressure is stable -Continue with Norvasc, atenolol -Continue with Lipitor 4. Hypothyroidism -Stable -Continue with Synthroid 5. GERD -Stable -Continue PPI DVT: Therapeutic Lovenox Inpatient E&M: [id number] [facility] Hosp L2
[2020-06-26] MEDS: Ezetimibe 10 MG Tablet PO (20:17)
[2020-06-26 21:30] LABS: Bedside Glucose 282 mg/dL (70-110)
[2020-06-26] MEDS: Acetaminophen 325 MG Tablet 650 MG PO (22:17)
[2020-06-27 02:15] VITALS: BP 161/73; PULSE 76; RESP 17; TEMP 36.4; O2SAT 93
[2020-06-27 05:29] LABS: Absolute Lymphocyte Count 0.57 X10^3/uL (0.83-4.51); Absolute Neutrophil Count 8.5 X10^3/uL (2.0-7.7); Basophil# 0.01 X10^3/uL; Basophil% 0.1 % (0-1); Hematocrit 29.5 % (37-47); Hemoglobin 9.2 g/dL (12.0-15.0); Lymphocyte # 0.57 X10^3/ul (4.0); Lymphocyte % 5.9 % (19-41); Mean Corp Hgb Conc 31.2 g/dL (32-36); Mean Corpuscular Hgb 30.1 pg (27.0-32.0); Mean Corpuscular Volume 96.4 fL (81-99); Mean Platelet Vol. 9.8 fl (6.2-12.0); Monocyte# 0.63 X10^3/uL; Monocyte% 6.5 % (0-10); NRBC Flagged by Analyzer 0 % (0-5); Neutrophil # 8.45 X10^3/uL (2.7-7.7); Neutrophil % 87.2 % (47-70); POSITIVE DIFFERENTIAL YES; Platelet Count 320 K/mm3 (150-450); RBC Distribution Width CV 12.8 % (11.6-14.6); RBC Distribution Width SD 45.2 fl (35.1-43.9); Red Blood Count 3.06 M/mm3 (4.2-5.4); White Blood Count 9.7 K/mm3 (4.4-11.0)
[2020-06-27 05:50] LABS: Anion Gap 8 (5-15); BUN 54 mg/dL (7-18); BUN/Creat Ratio 13.2 RATIO (10-20); Calcium,Total 9.7 mg/dL (8.5-10.1); Chloride 113 mmol/L (98-107); Creatinine, Serum 4.08 mg/dL (0.55-1.02); EST Glomerular Filtration Rate 11 mL/min (>60); Est Glom Filt Rate - Afr Amer 13 mL/min (>60); Estimated Creatinine Clearance 8.71 ml/min; Glucose 148 mg/dL (74-106); Potassium 4.3 mmol/L (3.5-5.1); Sodium Level 139 mmol/L (136-145)
[2020-06-27 05:56] LABS: Differential Indicated SCAN CRITERIA MET
[2020-06-27 06:13] LABS: Differential Comment SCANNED
[2020-06-27] MEDS: dexAMETHasone 2 MG TABLET 6 MG PO (07:51)
[2020-06-27] MEDS: Ferrous Sulfate 325 MG Tablet PO (07:51)
[2020-06-27] MEDS: Levothyroxine 75 MCG Tablet PO (07:51)
[2020-06-27] MEDS: amLODIPine 10 MG Tablet PO (07:51)
[2020-06-27] MEDS: Atenolol 50 MG Tablet PO (07:52)
[2020-06-27] MEDS: Enoxaparin 80 MG/0.8 ML Syringe 70 MG SC (07:52)
[2020-06-27] MEDS: Pantoprazole Sodium 20 MG Tablet PO (07:52)
[2020-06-27] MEDS: Glimepiride 4 MG Tablet PO (07:52)
[2020-06-27 07:55] VITALS: BP 146/55; PULSE 72; RESP 16; TEMP 36.5; O2SAT 80; O2SAT 96
[2020-06-27 07:59] VITALS: O2SAT 80; O2SAT 90; O2SAT 91
--- NOTE | 2020-06-27 08:42 | CM.UR ---
Addendum entered by Sonia Ramirez 06/27/20 11:58: [facility] States they will contact to set up home o2 and they will give him the tank to bring to hospital when they come to pick her up. Alerted THEODORE Burroughs of what Aleah's plan was. Verb understanding. Cris Ramirez RN,CCM Original Note: Upon reviewing chart. Noted patient still on oxygen. PT note says home with no needs anticipated. Per CM note--no preference for DME company. Per patient's MCR plan--[facility] is preferred provider. Printed all materials needed to submit for home oxygen. Cris Ramirez RN, CCM.
--- NOTE | 2020-06-27 09:05 | PCM.DC ---
- Discharge Diagnoses Current Active Problems: Current Active and Chronic Problems Fall (Acute) Chronic back pain (Chronic) Fe deficiency anemia (Chronic) Hyperlipidemia (Chronic) Hypertension (Chronic) Hypothyroid (Chronic) Barretts esophagus (Chronic) GERD (gastroesophageal reflux disease) (Chronic) Diabetes mellitus, type II (Chronic) You will use the following diet at home:: Calorie/Carbohydrate Controlled (specify 1200, 1400, etc) Your food should be the consistency of: Regular Your liquids should be the consistency of: Regular/Thin Discharge Activity: Return to Normal Activity Call your doctor if you observe: Fever of 101 or Higher, Shortness of breath, Dizziness, Fainting spells, Swelling in the ankles, Chest pain, Increased palpitations (irregular heartbeat) Instructions: Coronavirus Disease 2019 (COVID-19): Overview, Coronavirus Disease 2019 (COVID-19): Caring for Yourself or Others Additional Instructions: Remain quarantined at home for another week. Allergies/Adverse Reactions: Allergies No Known Allergies Allergy (Verified 03/16/13 18:59) Medications to take at Discharge Ezetimibe/Simvastatin [Vytorin 10-40 MG Tablet] 1 tablet PO DAILY 03/16/13 Atenolol [Tenormin (beta kamron)] 50 mg PO DAILY #30 03/18/13 Ferrous Sulfate 325 mg PO DAILY #30 03/18/13 Levothyroxine [Synthroid] 75 mcg PO DAILY #30 03/18/13 Omeprazole [Prilosec] 20 mg PO DAILY #30 03/18/13 Biotin 1,000 mg PO DAILY 06/18/13 Glimepiride 4 mg PO BID 06/18/13 Oxycodone HCl/Acetaminophen [Percocet 5-325] 1 - 2 tablet PO Q6H PRN PRN #30 tablet 08/15/13 Allopurinol 100 mg PO 06/25/20 Amlodipine [Norvasc] 10 mg PO DAILY 06/25/20 Atorvastatin Calcium [Lipitor] 40 mg PO QHS 06/25/20 Insulin Glargine [Lantus SoloStar Pen] 38 units SQ QHS 06/25/20 Apixaban [Eliquis] 2.5 mg PO BID #28 tab 06/27/20 dexAMETHasone [Dexamethasone] 6 mg PO DAILY #24 tab 06/27/20 The following prescriptions were given: dexAMETHasone [Dexamethasone] 6 mg PO DAILY #24 tab Transmission Status: Pending to [facility] Apixaban [Eliquis] 2.5 mg PO BID #28 tab Transmission Status: Pending to [facility] Primary Care Physician: Keo Rondon MD [Primary Care Provider] - Please follow up with your Primary Care Physician in: 3-5 days Test Results: Test results from this visit will be discussed in further detail at your follow-up appointment, if applicable.
[2020-06-27 09:16] LABS: Bedside Glucose 138 mg/dL (70-110)
--- NOTE | 2020-06-27 09:52 | PCM.DC.SUM ---
Discharge Date and Diagnosis - Problem List Patient Problems: Active and Suspected Problems Fall (Acute) Date of Admission: 06/25/20 Date of Discharge: 06/27/20 - Primary Discharge Diagnosis Acute Problems: Active Problems Fall (Acute) - Secondary Discharge Diagnosis Chronic Problems: Chronic Problems Chronic back pain (Chronic) Fe deficiency anemia (Chronic) Chronic kidney disease (Chronic) Hyperlipidemia (Chronic) Overweight (BMI 25.0-29.9) (Chronic) Anemia of chronic disease (Chronic) Hypertension (Chronic) Hypothyroid (Chronic) Lumbar stenosis (Chronic) Barretts esophagus (Chronic) GERD (gastroesophageal reflux disease) (Chronic) Diabetes mellitus, type II (Chronic) Hospital Course and Treatment Imaging Results: Clinical Impression(s) from Imaging Studies Brain CT 06/25/20 16:08 IMPRESSION: Age-related changes. No acute intracranial pathology of the brain. Electronically Signed: Stephon Bah DO at 17:24 EST Tel [phone], Service support , Chest X-Ray 06/25/20 16:55 IMPRESSION: Interstitial prominence and patchy infiltrates, right more than left. Electronically Signed: Stephon Bah DO at 17:26 EST Tel [phone], Service support , Lung Scan-VQ NM 06/26/20 05:55 FINDINGS: The patient was administered 49.7 mCi 99m Tc DTPA aerosol. The aerosol ventilation study demonstrates heterogeneous ventilation in the bilateral lung villanueva without corresponding radiographic changes visualized on review of plain film chest x-ray dated 06/26/2020. Central clumping of the aerosol is identified in the bilateral hemithorax. Following the intravenous administration of 5.8 mCi of 99m Tc MAA, the pulmonary perfusion study reveals matching non-uniform perfusion in the right and left lungs correlating with the previously defined ventilation pattern. There is a single small peripheral perfusion abnormality noted in the right mid lateral lung corresponding to previously defined ventilation changes. No moderate subsegmental or large segmental ventilation-perfusion mismatches are noted. There are regions of retained normal perfusion visualized. 1. VERY LOW PROBABILITY FOR PULMONARY EMBOLUS (<10%) 99m Tc DTPA aerosol ventilation / 99m Tc MAA pulmonary perfusion imaging examination, according to PIOPED II interpretive criteria with regard given to the presence of 1-3 small subsegmental unmatched perfusion defects. (Sokaron et al, Radiology 246: 941, 2008 Sokaron et al, J Nucl Med 49: 1741, 2008). 2. Central clumping of the aerosol may be secondary to obstructive airway mechanics and or clinical tachypnea. Chest X-Ray 06/26/20 10:00 IMPRESSION: Improved aeration of both lungs although residual changes persist. Electronically Signed: Garrett Irwin MD at 10:42 EST , Service support , Consults: ID Operations: None Procedures: None Summary of Care Provided: Per HPI: The patient is a 84 year old F with past medical history of hypertension, hyperlipidemia, type II DM, chronic back pain, history of Blank's esophagus/GERD who comes in with progressive shortness of breath, cough dog ongoing for couple of days and a fall of 1 day. Patient states that she has not been feeling well the last couple of days, she has chills but no fever, no loss of smell, no loss of taste, she has progressive shortness of breath. She complains of dizziness this morning, she felt off balance, she fell and hit her head and had a skin tear to her right elbow. At the time of being seen, patient stated that she felt a little better. Vitals in the ED showed temperature of 98.1F, heart rate 78 blood pressure 153/63, respiratory rate 78, SPO2 90% on room air, improved to 92% on 2 L of oxygen. BC count is 12.4, hemoglobin 10.7,. Hemoglobin was 11.4, platelet count 300, D-dimer is 2.88, sodium 136, potassium 5.4, chloride 101, bicarbonate 19, anion gap is 6, BUN is 50, creatinine 4.36, previous baseline was 3.6-3.9. UA is unremarkable. COVID-19 rapid antigen is negative. COVID-19 PCR is pending. Blood cultures are pending. CT scan of the brain showed age-related changes. No acute intracranial abnormalities. Chest x-ray shows interstitial prominence and patchy infiltrates, right more than left. Hospital Course: 1. Acute hypoxic respiratory insufficiency secondary to clinically suspicious COVID-19 pneumonia/RISHI on CKD 4 -Presentation she required 2 L of oxygen when she is not on oxygen at home -Continue with Decadron -We will likely need low-dose anticoagulation of 2.5 mg of Eliquis p.o. twice daily on discharge 14 days given her elevated D-dimer despite the fact that her VQ scan was negative for a PE. Her initial chest x-ray had some interstitial findings therefore the accuracy of the VQ scan is in question -PCR and antigen for Covid were both negative -Appreciate ID assistance -Pain is improving, will continue to monitor. Baseline is 3.6-3.9 however that was in 2014, her creatinine could be at baseline currently. -She would really like to go home today, she is on 3 L nasal cannula, she does require about 3 L nasal cannula with ambulation so she will be discharged on oxygen. She also be discharged to complete a 10-day course of Decadron as well. Her D-dimer was elevated and her VQ scan was read as no PE. Her chest x-ray prior to the VQ scan was not 100% normal therefore I did elect to discharge her also on 2.5 mg of Eliquis p.o. twice daily, we are finding that Covid seems to be hypercoagulable. Given the lung findings and her shortness of breath without any other causes, I still do feel that this is clinically suspicious for COVID-19. I discussed with her the plan for discharge today and she expressed understanding the risk and benefits of going home and would like to go home today. I discussed with her the weakness and she says that she would refuse to go to a SNF at this time and physical therapy thinks that she will do well at home with a walker even though this is not her baseline. 2. DM 2 -She is insulin-dependent, which we will continue. -We will have to monitor blood sugar closely secondary to the need of Decadron, will make adjustments as necessary -Blood sugars seem fairly controlled with her current insulin and the Decadron, encouraged her to continue a strict low-carb diet until she is at least complete the steroids 3. HTN/HLD -Blood pressure is stable -Continue with Norvasc, atenolol -Continue with Lipitor 4. Hypothyroidism -Stable -Continue with Synthroid 5. GERD -Stable -Continue PPI Patient Problems: Active and Suspected Problems Fall (Acute) - Physical Exam Vitals/I&O's: Vital Signs Temp Pulse Resp BP Pulse Ox 97.7 F L 72 16 146/55 H 91 06/27/20 07:55 06/27/20 07:55 06/27/20 07:55 06/27/20 07:55 06/27/20 07:59 Oxygen Flow Rate (L/min) [ 2 AMBULATION with Oxygen] Oxygen Flow Rate (L/min) 2 Oxygen Delivery Method Nasal Cannula Weight: 158 lb 14.4 oz Body Mass Index (BMI) 27.1 Finger Stick Blood Glucose 142 Intake and Output for Last 24 Hours 06/25/20 06/26/20 06/27/20 23:59 23:59 23:59 Intake Total 305 / 305 1000 / 1000 Balance 305 / 305 1000 / 1000 General: Alert, Oriented x3, Cooperative, No apparent distress HEENT: Atraumatic, PERRLA, EOMI, Normocephalic Oral: Moist Mucosa Neck: Supple, No JVD Lungs: Normal air movement, No rhonchi, No wheeze, No rales, Diminished Cardiovascular: Regular rate, Regular Rhythm, Normal S1, Normal S2, No murmurs Abdomen: Soft, Non Tender, Non-Distended, No Hepato-splenomegaly Extremities: Capillary Refill Less than 3 Seconds, no edema Skin: No rashes, No breakdown Neurological: Neuro grossly intact, Sensory exam intact to light touch and pain Psych/Mental Status: Normal Affect, Appropriate Microbiology Past 72 Hours 06/26/20 06:45 Urine, Clean Catch Legionella Antigen - Final 06/26/20 06:45 Urine, Clean Catch Streptococcus pneumoniae Antigen (M - Final 06/25/20 16:30 Mucosa - Nose SARS-CoV-2 Antigen (Rapid) - Final Laboratory Results 06/26/20 12:33: POC Glucose 234 H 06/26/20 16:48: POC Glucose 231 H 06/26/20 20:09: POC Glucose 282 H 06/27/20 04:44: WBC 9.7, RBC 3.06 L, Hgb 9.2 L, Hct 29.5 L, MCV 96.4, MCH 30.1, MCHC 31.2 L, RDW Std Deviation 45.2 H, RDW Coeff of Ritchie 12.8, Plt Count 320, MPV 9.8, Immature Gran % (Auto) 0.300, Neut % (Auto) 87.2 H, Lymph % (Auto) 5.9 L, Boyle % (Auto) 6.5, Eos % (Auto) 0.0, Baso % (Auto) 0.1, Absolute Neuts (auto) 8.5 H, Absolute Lymphs (auto) 0.57 L, Nucleated RBC % 0, Differential Comment SCANNED 06/27/20 04:44: Sodium 139, Potassium 4.3, Chloride 113 H, Carbon Dioxide 18.0 L, Anion Gap 8, BUN 54 H, Creatinine 4.08 H, Estim Creat Clear Calc 8.71, Est GFR (MDRD) Af Amer 13 L, Est GFR (MDRD) Non-Af 11 L, BUN/Creatinine Ratio 13.2, Glucose 148 H, Calcium 9.7 06/27/20 07:33: POC Glucose 138 H Current Medications Acetaminophen (Acetaminophen 325 Mg Tablet) 650 mg PO Q6H PRN PRN PRN Reason: Pain Score 1-10/Temp > 100.7 F Last Admin: 06/26/20 22:17 Dose: 650 mg Documented by: Al Hydroxide/Mg Hydroxide (Mag Hydrox/Al Hydrox/Simeth 30 Ml Udc) 30 ml PO Q6H PRN PRN PRN Reason: Gastric Burning Amlodipine Besylate (Amlodipine 10 Mg Tablet) 10 mg PO DAILY [facility] Last Admin: 06/27/20 07:51 Dose: 10 mg Documented by: Atenolol (Atenolol 50 Mg Tablet) 50 mg PO DAILY [facility] Last Admin: 06/27/20 07:52 Dose: 50 mg Documented by: Atorvastatin Calcium (Atorvastatin Calcium 40 Mg Tablet) 40 mg PO QHS [facility] Last Admin: 06/26/20 00:15 Dose: 40 mg Documented by: Dexamethasone (Dexamethasone 2 Mg Tablet) 6 mg PO DAILY [facility] Last Admin: 06/27/20 07:51 Dose: 6 mg Documented by: Dextrose (Dextrose 50%-Water 25 Gm/50 Ml Disp.Syrin) 0 gm IV X1 PRN; Protocol PRN Reason: Hypoglycemia Ezetimibe (Ezetimibe 10 Mg Tablet) 10 mg PO [facility] Last Admin: 06/26/20 20:17 Dose: 10 mg Documented by: Enoxaparin Sodium (Enoxaparin 80 Mg/0.8 Ml Syringe) 70 mg SC DAILY [facility] Last Admin: 06/27/20 07:52 Dose: 70 mg Documented by: Ferrous Sulfate (Ferrous Sulfate 325 Mg Tablet) 325 mg PO DAILY [facility] Last Admin: 06/27/20 07:51 Dose: 325 mg Documented by: Glimepiride (Glimepiride 4 Mg Tablet) 4 mg PO BIDCM [facility] Last Admin: 06/27/20 07:52 Dose: 4 mg Documented by: Glucagon (Glucagon 1 Mg/Ml Syringe) 1 mg IM .X1 PRN PRN Reason: Hypoglycemia Insulin Glargine (Insulin Glargine 100 Units/Ml Pen) 38 units SC QHS [facility] Last Admin: 06/26/20 20:19 Dose: 38 u Documented by: Insulin Human Lispro (Insulin Lispro 100 Unit/Ml Insuln.Pen) 0 unit SC [facility]; Protocol Last Admin: 06/27/20 07:53 Dose: Not Given Documented by: Levothyroxine Sodium (Levothyroxine 75 Mcg Tablet) 75 mcg PO DAILY [facility] Last Admin: 06/27/20 07:51 Dose: 75 mcg Documented by: Magnesium Hydroxide (Magnesium Hydroxide 30 Ml Udc) 30 ml PO DAILY PRN PRN PRN Reason: Constipation Ondansetron HCl (Ondansetron 4 Mg/2 Ml Vial) 4 mg IV Q8H PRN PRN PRN Reason: NAUSEA/VOMITING Pantoprazole Sodium (Pantoprazole Sodium 20 Mg Tablet) 20 mg PO DAILY [facility] Last Admin: 06/27/20 07:52 Dose: 20 mg Documented by: Senna/Docusate Sodium (Senna/Docusate Sodium 1 Tablet) 2 tablet PO BID PRN PRN PRN Reason: Constipation Sodium Chloride (0.9% Saline Lock 10 Ml Syringe) 10 - 40 ml IV UD PRN PRN Reason: SALINE FLUSH Discharge Activity: Return to Normal Activity Call your doctor if you observe: Fever of 101 or Higher, Shortness of breath, Dizziness, Fainting spells, Swelling in the ankles, Chest pain, Increased palpitations (irregular heartbeat) Home Medications: Medications to take at Discharge Ezetimibe/Simvastatin [Vytorin 10-40 MG Tablet] 1 tablet PO DAILY 03/16/13 Atenolol [Tenormin (beta kamron)] 50 mg PO DAILY #30 03/18/13 Ferrous Sulfate 325 mg PO DAILY #30 03/18/13 Levothyroxine [Synthroid] 75 mcg PO DAILY #30 03/18/13 Omeprazole [Prilosec] 20 mg PO DAILY #30 03/18/13 Biotin 1,000 mg PO DAILY 06/18/13 Glimepiride 4 mg PO BID 06/18/13 Oxycodone HCl/Acetaminophen [Percocet 5-325] 1 - 2 tablet PO Q6H PRN PRN #30 tablet 08/15/13 Allopurinol 100 mg PO 06/25/20 Amlodipine [Norvasc] 10 mg PO DAILY 06/25/20 Atorvastatin Calcium [Lipitor] 40 mg PO QHS 06/25/20 Insulin Glargine [Lantus SoloStar Pen] 38 units SQ QHS 06/25/20 Apixaban [Eliquis] 2.5 mg PO BID #28 tab 06/27/20 dexAMETHasone [Dexamethasone] 6 mg PO DAILY #24 tab 06/27/20 Following Prescriptions Were Given to Patient: dexAMETHasone [Dexamethasone] 6 mg PO DAILY #24 tab Transmission Status: Received by [facility] Apixaban [Eliquis] 2.5 mg PO BID #28 tab Transmission Status: Received by [facility] Primary Care Physician: Keo Rondon MD [Primary Care Provider] - Please follow up with your Primary Care Physician in: 3-5 days Patient Instructions: Coronavirus Disease 2019 (COVID-19): Overview, Coronavirus Disease 2019 (COVID-19): Caring for Yourself or Others Disposition: Home Minutes spent on discharge:: 35 Patient Condition:: Stable Medical Necessity - Tobacco Use Smoking Status: Former smoker Tobacco Use: Non-smoker Meaningful Use Info Meaningful Use Diagnoses (Choose all that apply): None applicable Inpatient E&M: 66417 Disch Hosp
[2020-06-27] MEDS: Insulin Lispro 100 UNIT/ML INSULN.PEN SC (11:50)
[2020-06-27 14:16] LABS: Bedside Glucose 261 mg/dL (70-110)
== END 2020-06-27 14:30 | disposition home or self-care (01) | DRG 204 ==
LOC: ED 18:36 → MS2 18:54
PROVIDERS: Admitting Provider Internal Medicine; Emergency Provider Emergency Medicine; PCP Internal Medicine; Visit Provider Family Medicine
DX: R06.89 Other abnormalities of breathing (principal); N18.4 Chronic kidney disease, stage 4 (severe); N17.9 Acute kidney failure, unspecified; R42 Dizziness and giddiness; R79.89 Other specified abnormal findings of blood chemistry; R09.02 Hypoxemia; D72.810 Lymphocytopenia; M54.9 Dorsalgia, unspecified; G89.29 Other chronic pain; D50.9 Iron deficiency anemia, unspecified; E78.5 Hyperlipidemia, unspecified; I12.9 Hypertensive chronic kidney disease with stage 1 through stage 4 chronic kidney disease, or unspecified chronic kidney disease; E03.9 Hypothyroidism, unspecified; K22.719 Barrett's esophagus with dysplasia, unspecified; K21.9 Gastro-esophageal reflux disease without esophagitis; S51.011A Laceration without foreign body of right elbow, initial encounter; W19.XXXA Unspecified fall, initial encounter; Z66 Do not resuscitate; Z79.890 Hormone replacement therapy; Z79.4 Long term (current) use of insulin; Z83.3 Family history of diabetes mellitus; Z87.891 Personal history of nicotine dependence; Z90.710 Acquired absence of both cervix and uterus; D63.8 Anemia in other chronic diseases classified elsewhere; E11.22 Type 2 diabetes mellitus with diabetic chronic kidney disease; E66.3 Overweight; M48.061 Spinal stenosis, lumbar region without neurogenic claudication; E87.5 Hyperkalemia; Z68.26 Body mass index [BMI] 26.0-26.9, adult
CPT/HCPCS: 36415; 70450; 71045; 71046; 78582; 80048; 80053; 81001; 82962; 83605; 83880; 84484; 85025; 85379; 87040; 87426; 87449; 87635; 90715; 93005; 97161; 97802; 99251; 99285; A9540; A9567; J7030; A4216; G0463; U0002

== ENCOUNTER 2020-07-02 20:45 | Observation (INO) | payer MEDICARE, SELFPAY ==
[2020-06-25 20:58] VITALS: BMI 27.1
[2020-07-02] VITALS (8 sets, daily range): BP systolic 142–170; BP diastolic 58–94; PULSE 68–84; RESP 16–20; TEMP 37.1; O2SAT 97–99; BMI 28.5
--- NOTE | 2020-07-02 20:46 | CT_ITS ---
We are attempting to reach an attending provider to discuss findings. An addendum with communication details will be sent when the communication is complete. STUDY: CT HEAD STROKE PROTOCOL W/O CONTRAST INJECTION REASON FOR EXAM: Female, 84 years old. stroke TECHNIQUE: Transaxial CT imaging of the brain was performed without administration of intravenous contrast material. Individualized dose optimization techniques were used for this CT. COMPARISON: 06/25/2020 FINDINGS: Normal soft tissue structures. Normal calvarium. There is mild cerebral atrophy with widening of the extra-axial spaces and ventricular dilatation. There are areas of decreased attenuation within the white matter tracts of the supratentorial brain, consistent with microvascular disease changes. There are bilateral lacunar infarcts of the basal ganglia and thalami. Normal brainstem. There is mild cerebellar atrophy. 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 There is no intracranial hemorrhage. There are no findings of an acute ischemic infarction. Normal visualized paranasal sinuses. CT/STROKE Brain/Head without Cont IMPRESSION: No change or acute abnormality. Atrophy. White matter disease. 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 No gross infarcts. No hemorrhage. Electronically Signed: Jos Horn MD at 21:03 EST , Service support ,
--- NOTE | 2020-07-02 20:49 | EKG12_ITS ---
Test Reason : DYSRHYTHMIA Blood Pressure : / mmHG Vent. Rate : 077 BPM Atrial Rate : 250 BPM P-R Int : 000 ms QRS Dur : 078 ms QT Int : 384 ms P-R-T Axes : 000 010 018 degrees QTc Int : 434 ms Atrial fibrillation Nonspecific ST and T wave abnormality Abnormal ECG Confirmed by ZULEIKA ANDERSON, DIONNA ([id number]), editorial specialist JOEY MCKEON ([id number]) on 07/06/2020 10:56:00 AM Referred By: Confirmed By:TRENT TO MD
--- NOTE | 2020-07-02 21:03 | ED.RN ---
PT HAS INTERMITTENT EPISODES OF COMPLETE APHASIA.
--- NOTE | 2020-07-02 21:50 | RAD_ITS ---
STUDY: X-RAY CHEST REASON FOR EXAM: Female, 84 years old. INTERMITTENT APHASIA AND FACIAL DROOP. TECHNIQUE: Single AP portable view of the chest. COMPARISON: 06/26/2020. FINDINGS: The lungs are clear and expanded. There is no demonstrated pleural abnormality. Normal size heart. Normal mediastinum and jazmyne. Normal visualized pulmonary arteries. Normal visualized aortic arch and descending thoracic aorta. Normal visualized thoracic spine. Normal visualized ribs, clavicles, and shoulders. There is no demonstrated abnormality of the visualized soft tissue structures of the upper abdomen. RAD/Chest 1 View IMPRESSION: Normal x-ray examination of the chest. Electronically Signed: Jos Horn MD at 22:17 EST , Service support ,
--- NOTE | 2020-07-02 21:57 | ED.RN ---
[facility] [phone]
--- NOTE | 2020-07-02 22:10 | PCM.HP.STD ---
Problem List (1) Seizure Status: Suspected (2) CVA (cerebral vascular accident) Status: Acute Qualifiers: CVA mechanism: unspecified Qualified Code(s): I63.9 - Cerebral infarction, unspecified (3) PAF (paroxysmal atrial fibrillation) Status: Acute (4) Chronic back pain Status: Chronic Qualifiers: Back pain location: back pain in unspecified location Back pain laterality: unspecified Qualified Code(s): M54.9 - Dorsalgia, unspecified; G89.29 - Other chronic pain (5) Fe deficiency anemia Status: Chronic Qualifiers: Iron deficiency anemia type: unspecified iron deficiency Qualified Code(s): D50.9 - Iron deficiency anemia, unspecified (6) Chronic kidney disease Status: Chronic Qualifiers: Chronic kidney disease stage: stage 4 (severe) Qualified Code(s): N18.4 - Chronic kidney disease, stage 4 (severe) (7) Hyperlipidemia Status: Chronic Qualifiers: Hyperlipidemia type: unspecified Qualified Code(s): E78.5 - Hyperlipidemia, unspecified (8) Overweight (BMI 25.0-29.9) Status: Chronic (9) Anemia of chronic disease Status: Chronic (10) Hypertension Status: Chronic Qualifiers: Hypertension type: essential hypertension Qualified Code(s): I10 - Essential (primary) hypertension (11) Hypothyroid Status: Chronic Qualifiers: Hypothyroidism type: unspecified Qualified Code(s): E03.9 - Hypothyroidism, unspecified (12) Barretts esophagus Status: Chronic Qualifiers: Blank's esophagus type: with dysplasia of unspecified degree Qualified Code(s): K22.719 - Blank's esophagus with dysplasia, unspecified (13) GERD (gastroesophageal reflux disease) Status: Chronic Qualifiers: Esophagitis presence: esophagitis presence not specified Qualified Code(s): K21.9 - Gastro-esophageal reflux disease without esophagitis (14) Diabetes mellitus, type II Status: Chronic Qualifiers: Diabetes mellitus prison insulin use: with termite exterminator helper use Diabetes mellitus complication status: with other specified complication Qualified Code(s): E11.69 - Type 2 diabetes mellitus with other specified complication; Z79.4 - long term care social worker (current) use of insulin History of Present Illness Date of Admission: 07/02/20 Chief Complaint: Slurred speech and R facial droop. The patient is an 84 y/o F w/ PMHx: AOCD/Fe deficiency anemia, Gout, CKD stage IV with fistula with no dialysis usage, Hypothyroidism, HTN, HLD, Diabetes mellitus type II, GERD, Former Tobacco use, recent 06/25/20-06/27/20 admission for acute hypoxic respiratory insuffiency suspected secondary to COVID-19 pneumonia with additionally RISHI on CKD stage IV discharged on decadron as well as 14 day regimen of eliquis secondary to elevated dimers in the setting of COVID treatment with requested continuation quarantine for an additional 7 days who now re-presents to the [facility] ED on 07/02/20 with history of onset specifically slurred speech with right facial droop noted per EMS with resolution prior to ED arrival. While in the ED patient was specifically intermittent episodes of aphasia and noted to be intermittently unable to produce speech with transition to answering questions only via head-nodding with quick resolution and complete return to baseline with no slurring present. Work-up in the ED included T 90.7, heart rate 80, BP 160/94, respiratory rate 20, 99% on room air, CT brain with no acute abnormalities with atrophy with white matter disease and possible bilateral symmetric subdural hygromas with no gross infarcts or hemorrhage noted, EKG with new onset rate controlled atrial fibrillation not noted in either prior EKGs or history. [facility] teleneurology felt patient evaluation which ranged from slurred altered speech to completely normal evaluation intermittently during their examination thus highly atypical presentation for stroke and not candidate for TPA or thrombectomy with recommendation for further evaluation for nonischemic etiologies at ER discretion. During hospitalist evaluation in the ED patient with onset of prior noted symptoms with significant aphasia and obvious right sided facial twitching including intermittent facial drooping significantly consistent for suspected seizure activity which resolved in the presence of the hospitalist as well and patient could recall history prior to its onset but not during. Labs pending upon requested evaluation. Discussed seizure onset with ED physician and ED nurse who brought in the room and witnessed it as well and requested Keppra load be initiated. Past Medical History Past Medical History (Chronic Problems): Chronic Problems Chronic back pain (Chronic) Fe deficiency anemia (Chronic) Chronic kidney disease (Chronic) Hyperlipidemia (Chronic) Overweight (BMI 25.0-29.9) (Chronic) Anemia of chronic disease (Chronic) Hypertension (Chronic) Hypothyroid (Chronic) Lumbar stenosis (Chronic) Barretts esophagus (Chronic) GERD (gastroesophageal reflux disease) (Chronic) Diabetes mellitus, type II (Chronic) Allergies No Known Allergies Allergy (Verified 07/02/20 21:07) Home Medications: Ambulatory Orders Medication Instructions Recorded Ezetimibe/Simvastatin [Vytorin 1 tablet PO DAILY 03/16/13 10-40 MG Tablet] Atenolol [Tenormin (beta kamron)] 50 mg PO DAILY #30 03/18/13 Ferrous Sulfate 325 mg PO DAILY #30 03/18/13 Levothyroxine [Synthroid] 75 mcg PO DAILY #30 03/18/13 Omeprazole [Prilosec] 20 mg PO DAILY #30 03/18/13 Biotin 1,000 mg PO DAILY 06/18/13 Glimepiride 4 mg PO BID 06/18/13 Oxycodone HCl/Acetaminophen 1 - 2 tablet PO Q6H PRN PRN #30 08/15/13 [Percocet 5-325] tablet Allopurinol 100 mg PO DAILY 06/25/20 Amlodipine [Norvasc] 10 mg PO DAILY 06/25/20 Atorvastatin Calcium [Lipitor] 40 mg PO QHS 06/25/20 Insulin Glargine [Lantus SoloStar 38 units SQ QHS 06/25/20 Pen] Apixaban [Eliquis] 2.5 mg PO BID #28 tab 06/27/20 dexAMETHasone [Dexamethasone] 6 mg PO DAILY #24 tab 06/27/20 Surgical History: appendectomy, cholecystectomy - Open, hysterectomy, tonsillectomy, - - Back surgery, Cataract. Psychiatric History: No pertinent psych hx [employer]GGER ALL ROUND History: No pertinent [employer] history Lives: Spouse/ Significant Other Smoking Status: Former smoker Tobacco Use: Non-smoker Alcohol: None Drugs: None - *Family History Paternal History Items: Unknown Maternal History Items: Heart Disease Sibling History Items: Diabetes, Heart Disease Review of Systems Constitutional: Reports: Malaise, Weakness, Fatigue. Denies: Chills, Fever, Weight Change HEENT: Denies: Head Aches, Sinus Congestion, Sinus Drainage Cardiovascular: Denies: Chest Pain, Palpitations Respiratory: Denies: Cough, Shortness of breath at rest, Sputum production Gastrointestinal: Denies: Abdominal Pain, Nausea, Vomiting Genitourinary: Denies: Dysuria Musculoskeletal: Reports: Joint Pain. Denies: Joint Tenderness Skin: Denies: Rash, Wounds Neurological: Reports: Confusion, Focal weakness, Seizures. Denies: Numbness, Tingling Psychiatric: Reports: Anxiety, Depression. Denies: Homicidal Ideations, Suicidal Ideations Hematologic/ Lymphatic: Reports: Anemia, Easy Bruising, Easy Bleeding VTE Information - Inpt Only VTE Present on Admission: No VTE Mechan Device Prophylaxis: SCD's VTE Pharm Prophylaxis ordered?: Yes Patient Problems: Active and Suspected Problems Seizure (Suspected) CVA (cerebral vascular accident) (Acute) PAF (paroxysmal atrial fibrillation) (Acute) Subjective: Patient seated upright in the ED bed, initially no acute distress, answering questions appropriately with sudden onset right facial twitching and aphasia consistent with seizure activity. Objective: Physical Examination: General: awake, alert, oriented x 3 initially and cooperative, seated upright in the ED bed with no acute distress however patient during evaluation did have sudden onset aphasia and right-sided facial twitching and droop consistent with seizure activity which resolved immediately and patient returned to complete appropriate orientation and verbalization. Skin: normal color, turgor, no icterus, cyanosis. HEENT: AT/NC, EOMI, PERRLA, mildly dry MM, as noted transient right facial twitching with intermittent droop with aphasia which eventually resolved, no carotid bruits or JVD noted. Lungs: CTA bilaterally, moderate effort, mild decrease BL bases, no rales, ronchi or wheezing. Heart: Irregular, rate controlled; no gallop, rub audible. Abdomen: soft, overweight, NTTP, ND, normal BS, no HSM. Extremities: no cyanosis, clubbing, or edema. Neurological: patient awake, alert, oriented as noted; cognitive function initially intact with sudden onset likely seizure activity with aphasia and right-sided facial twitching which quickly resolved and patient's orientation returned to baseline; pupils equally reactive to light and accomodation; cranial nerves II-XII grossly normal except for during likely seizure activity, moving all 4 extremities, no focal deficits specifically on evaluation performed while no active right facial twitching, strength preserved. Psychiatric: affect appears fatigued otherwise normal, no acute evidence of depressive or anxiety feelings. - Physical Exam Vitals/I&O's: Vital Signs Temp Pulse Resp BP Pulse Ox 98.7 F 84 17 160/94 H 99 07/02/20 21:07 07/02/20 20:58 07/02/20 20:58 07/02/20 20:58 07/02/20 21:05 Oxygen Delivery Method Room Air Weight: 166 lb 3.657 oz Body Mass Index (BMI) 28.5 Finger Stick Blood Glucose 586 Current Medications Labetalol HCl (Labetalol (Prefilled) 20 Mg/4 Ml) 20 mg IV X1 PRN PRN Reason: BLOOD PRESSURE Assessment/Plan All Active Problems Fall (Acute) CVA (cerebral vascular accident) (Acute) PAF (paroxysmal atrial fibrillation) (Acute) The patient is an 84 y/o F w/ PMHx: AOCD/Fe deficiency anemia, Gout, CKD stage IV with fistula with no dialysis usage, Hypothyroidism, HTN, HLD, Diabetes mellitus type II, GERD, Former Tobacco use, recent 06/25/20-06/27/20 admission for acute hypoxic respiratory insuffiency suspected secondary to COVID-19 pneumonia with additionally RISHI on CKD stage IV discharged on decadron as well as 14 day regimen of eliquis secondary to elevated dimers in the setting of COVID treatment with requested continuation quarantine for an additional 7 days who now re-presents to the [facility] ED on 07/02/20 with history of onset specifically slurred speech with right facial droop noted per EMS with resolution prior to ED arrival. 1. Transient right-sided facial droop/twitching and intermittent aphasia, atypical for TIA/CVA, MORE consistent with New Onset Seizure: Will admit to PCU status under continued Covid precautions per [place] recent recommendation to continue parameters for additional 1 week following discharge, will obtain EEG, will continue on Keppra 500 mg BID with load requested in the ED, will maintain on seizure/fall/aspiration precautions, will obtain MRI Brain, MRA Head and Neck, ECHO, PT/OT/Speech/Nutrition evaluation per protocol. Will consult Neurology for repeat evaluation once completed work-up as noted. Will allow permissive HTN, maintain on Eliquis, aspirin, increase patient home statin w/ AM FLP, fall precautions pending work-up and regimen be be altered if no obvious evidence CVA and EEG notable. Mag, TSH, HgBA1c pending. PRN ativan IV for seizure activity. 2. New Onset Paroxsymal atrial fibrillation: EKG in ED w/ atrial fibrillation, rate controlled. Will maintain on telemetry, obtain cardiac enzyme serial set, obtain magnesium level, obtain ECHO, obtain TSH level. CHADs scoring appropriate for continued anticoagulation as recently initiated on Eliquis therapy as noted, temporarily holding patient home atenolol given permissive hypertension although again higher suspicion for acute seizure activity, resume beta-kamron therapy once appropriate, currently rate controlled. 3. Recent acute hypoxic respiratory insuffiency suspected secondary to COVID-19 pneumonia: We will continue patient Decadron therapy to completion and continue patient quarantine for recommended 1 additional week following patient discharge (until 07/05/2020) in addition to ongoing Eliquis therapy as patient with elevated D-dimers during prior presentation. We will continue evaluation as noted #1 especially given recent admission. 4. Chronic Kidney Disease Stage IV: Admission BUN/Cr pending, baseline renal function 3.6-3.8, patient following with Dr. Mei, has HD access but no active dialysis initiated. 5. Chronic iron deficiency anemia/AOCD: Admission hemoglobin pending, Baseline hemoglobin 8-10 primarily, will continue to trend, continue iron supplementation. 6. Diabetes mellitus type II: Hold oral home regimen, continue home insulin regimen, ADA diet, accu checks w/ ISS, hemoglobin A1c pending given acute presentation as noted, would expect elevations given recent Decadron ongoing usage. 7. Hypertension: We will continue permissive hypertension given acute presentation, resume regimen once appropriate. 8. Hyperlipidemia: Will increase patient home statin regimen given presentation, FLP in AM. 9. Hypothyroidism: Continue home synthroid regimen, TSH pending. 10. GERD: We will continue patient home PPI. 11. DVT prophylaxis: SCDs, continue home Eliquis regimen recently initiated secondary to recent Covid status of moderate suspicion with elevated dimer but given new onset A. fib likely will need to be continued given significant medical history with elevated CHADS2 score. 12. CODE status: When patient was coherent and there is no active seizure activity with complete orientation greater than 4, discussed CODE status at length including difference between FULL code, DNR-CCA and DNR-CC status. Following discussions about the differences in these status, requested DNR-CCA, no intubation status. Advanced Care Planning Face to Face Time: 16 minutes. Inpatient E&M: 46405 Init Hosp L3 Procedures: 37419 Advncd Care Plan 30 Min
--- NOTE | 2020-07-02 23:23 | ED.VISSUMM ---
- ER Visit Summary Date of Service: 07/02/20 Chief Complaint: Strokelike symptoms History of Present Illness: The patient is a 84 F presenting per EMS as prehospital stroke team. Per EMS 30 minutes prior to their arrival she began having facial droop, slurred speech, and difficulty speaking. On arrival to the ED her facial droop is improved. Her speech is improved. She states that she felt like she could not get the words out she wanted to say. She went directly to CT scan. She has a history of chronic renal disease, noncontrast head CT was obtained. She was recently admitted to the hospital with pneumonia and presumed Covid. Physical Examination: Vitals are stable. Patient is afebrile. Alert no acute distress. HEENT exam is unremarkable. Neck is supple. Lungs are clear and equal bilaterally. Heart is irregularly irregular Abdomen is soft nontender nondistended. Extremities are unremarkable. Skin is warm and dry. No focal neurologic deficit. Remainder of exam is unremarkable. Emergency Department Course and Treatment: [facility] was consulted. Patient is not a TPA candidate at this time. She is having intermittent episodes of difficulty speaking. While in the ED patient also began having facial twitching during these episodes. It is felt this may represent seizure and she was given Keppra IV. CT head shows no change or acute abnormality. Atrophy. White matter disease. 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 No gross infarcts. No hemorrhage. Labs are pending at this time. Discussed with hospitalist for admission. Disposition: Admission Impression: CVA versus seizure This note was generated with [employer] dictation software. It may contain incorrect words, spelling, and punctuation that were not noted in review of the chart prior to signing
[2020-07-02 23:50] LABS: Absolute Lymphocyte Count 0.32 X10^3/uL (0.83-4.51); Absolute Neutrophil Count 17.3 X10^3/uL (2.0-7.7); Basophil# 0.08 X10^3/uL; Basophil% 0.4 % (0-1); Lymphocyte # 0.32 X10^3/ul (4.0); Lymphocyte % 1.7 % (19-41); Mean Corp Hgb Conc 30.6 g/dL (32-36); Mean Corpuscular Hgb 30.9 pg (27.0-32.0); Mean Corpuscular Volume 101.1 fL (81-99); Mean Platelet Vol. 9.6 fl (6.2-12.0); Monocyte# 0.53 X10^3/uL; Monocyte% 2.9 % (0-10); NRBC Flagged by Analyzer 0 % (0-5); Neutrophil # 17.26 X10^3/uL (2.7-7.7); POSITIVE DIFFERENTIAL YES; Platelet Count 393 K/mm3 (150-450); RBC Distribution Width CV 12.6 % (11.6-14.6); RBC Distribution Width SD 46.6 fl (35.1-43.9); Red Blood Count 3.56 M/mm3 (4.2-5.4); White Blood Count 18.4 K/mm3 (4.4-11.0)
[2020-07-02 23:51] LABS: Differential Indicated SCAN CRITERIA MET
[2020-07-03] VITALS (17 sets, daily range): BP systolic 116–163; BP diastolic 56–72; PULSE 54–74; RESP 14–20; TEMP 36.3–36.9; O2SAT 95–100; BMI 27.0; BMI 27.1
[2020-07-03] MEDS: levETIRAcetam IV 1,000 MG/100 ML BAG 400 MG IV (00:04)
[2020-07-03 00:31] LABS: International Normalized Ratio 1.8; Prothrombin Time (Protime)PT. 20.7 SECONDS (11.7-14.9)
[2020-07-03 00:33] LABS: Partial Thromboplast Time 57.4 Seconds (24.1-36.2)
[2020-07-03 00:50] LABS: Anion Gap 14 (5-15); BUN 75 mg/dL (7-18); BUN/Creat Ratio 18.6 RATIO (10-20); Chloride 105 mmol/L (98-107); Creatinine, Serum 4.03 mg/dL (0.55-1.02); EST Glomerular Filtration Rate 11 mL/min (>60); Est Glom Filt Rate - Afr Amer 14 mL/min (>60); Estimated Creatinine Clearance 8.81 ml/min; Glucose 715 mg/dL (74-106); Potassium 4.5 mmol/L (3.5-5.1); Sodium Level 131 mmol/L (136-145)
--- NOTE | 2020-07-03 01:04 | PCS.PANDOC ---
PANDEMIC DOCUMENTATION INITIATED: Date: 07/03/20 Time: 0102
--- NOTE | 2020-07-03 01:12 | MRI_ITS ---
STUDY: MRA NECK WITHOUT CONTRAST REASON FOR EXAM: Female, 84 years old. New seizure following COVID vaccine TECHNIQUE: Source images were obtained, MIPs were performed. The study was performed unenhanced. COMPARISON: None. FINDINGS: RIGHT CAROTID ARTERIES: Normal right common carotid artery (CCA). Normal right common carotid bulb. Normal origin of the right internal carotid (ICA) artery without a hemodynamically significant stenosis. Normal visualized cervical portion of the right internal carotid artery. Normal origin of the right external carotid artery (ECA). LEFT CAROTID ARTERIES: Normal left common carotid artery (CCA). Normal left common carotid bulb. Normal origin of the left internal carotid (ICA) artery without a hemodynamically significant stenosis. Normal visualized cervical portion of the left internal carotid artery. Normal origin of the left external carotid artery (ECA). VERTEBRAL ARTERIES: Normal antegrade flow within the bilateral vertebral artery without a hemodynamically significant stenosis. MRI/MRA Neck without Contrast IMPRESSION: Normal bilateral cervical carotid and vertebral arteries. Electronically Signed: Jos Horn MD at 16:23 EST , Service support ,
--- NOTE | 2020-07-03 01:12 | MRI_ITS ---
STUDY: MRA OF THE HEAD WITHOUT CONTRAST REASON FOR EXAM: Female, 84 years old. cva, new seizure s/p 1st covid vaccine yesterday TECHNIQUE: 3-D [id number] (TOF) imaging was performed with MIPs. The study was performed unenhanced. COMPARISON: None. FINDINGS: Normal bilateral petrous carotid arteries. Normal right cavernous carotid artery with a normal supraclinoid bifurcation. Normal left cavernous carotid artery with a normal supraclinoid bifurcation. Normal right A1 segment of the anterior cerebral artery. Normal left A1 segment of the anterior cerebral artery. Normal intact anterior communicating artery (ACOM). Normal bilateral A2 segments of the anterior cerebral arteries. Normal right M1 and M2 segments of the middle cerebral arteries, with a normal M1 bifurcation. Normal left M1 and M2 segments of the middle cerebral arteries, with a normal M1 bifurcation. Normal right posterior communicating artery (PCOM). Normal left posterior communicating artery (PCOM). Normal bilateral vertebral arteries. Normal basilar artery with a normal basilar bifurcation. The visualized bilateral superior cerebellar (SCA) arteries are normal. Normal bilateral P1, P2 and visualized P3 segments of the posterior cerebral arteries. There is no demonstrated aneurysm of the [place]. There is no major vessel occlusion or hemodynamically significant stenosis. Chronic white matter ischemic changes in both cerebral hemispheres. MRI/MRA Head ONLY without Contrast IMPRESSION: Normal MRA of the head Electronically Signed: Hua Jones MD at 16:00 EST , Service support ,
--- NOTE | 2020-07-03 01:12 | MRI_ITS ---
STUDY: MRI BRAIN WITHOUT CONTRAST REASON FOR EXAM: Female, 84 years old. New seizure following COVID vaccine, cva, new [place] s/p 1st covid vaccine yesterday TECHNIQUE: Standardized multiplanar fat and water weighted pulse sequences were obtained. COMPARISON: CT brain without contrast 06/25/2020. FINDINGS: No diffusion restriction throughout the brain parenchyma. Normal size of the ventricles and extra-axial spaces for the patient''s age. Multiple T2 FLAIR hyperintensity foci in the white matter of both cerebral hemispheres are chronic white matter ischemic changes. No midline shift and no mass effects. Normal bilateral basal ganglia. Normal thalami. There is no extra-axial fluid accumulation. Normal flow voids within the major intracranial circulation suggesting patency by spin echo criteria. Normal sella turcica, pituitary gland, infundibular stalk, optic chiasm and hypothalamus. Normal tectal plate and pineal gland. Normal midbrain, mya and medulla. Normal cerebellum. Normal basal cisterns. Normal bilateral temporal bones. Normal bilateral internal auditory canals. No demonstrated orbital abnormality, within the constraints of a routine brain study. Normal visualized paranasal sinuses. Normal calvarium and skull base. Normal visualized soft tissue structures. Normal visualized upper cervical spine. MRI/Brain without Contrast IMPRESSION: 1. No MRI evidence of acute or subacute ischemic infarct or acute intracranial abnormality. 2. Multiple chronic white matter ischemic changes in both cerebral hemispheres. Electronically Signed: Hua Jones MD at 15:59 EST , Service support ,
[2020-07-03] MEDS: 0.9% Normal Saline 1,000 ML 100 ML IV (01:35)
[2020-07-03] MEDS: Insulin Lispro 100 UNIT/ML INSULN.PEN 20 UNIT SC ×2 (01:58→04:35)
[2020-07-03 02:16] LABS: Bedside Glucose > 500 mg/dL (70-110)
[2020-07-03 04:51] LABS: Bedside Glucose > 500 mg/dL (70-110)
--- NOTE | 2020-07-03 05:55 | EKG12_ITS ---
Test Reason : AM EKG Blood Pressure : / mmHG Vent. Rate : 062 BPM Atrial Rate : 062 BPM P-R Int : 162 ms QRS Dur : 080 ms QT Int : 406 ms P-R-T Axes : 086 018 -11 degrees QTc Int : 412 ms Sinus rhythm with Premature atrial complexes Nonspecific ST and T wave abnormality Abnormal ECG When compared with ECG of 02-JUL-2020 21:21, MANUAL COMPARISON REQUIRED, DATA IS UNCONFIRMED Confirmed by PATEL ANDERSON, ANDREIA ([id number]), editor trade journal JONNATHAN MCGINNIS ([id number]) on 07/07/2020 8:52:52 AM Referred By: DOMINIC Confirmed By:ANDREIA SWEENEY MD
[2020-07-03 06:15] LABS: Absolute Neutrophil Count 13.3 X10^3/uL (2.0-7.7); Basophil# 0.02 X10^3/uL; Basophil% 0.1 % (0-1); Hematocrit 28.4 % (37-47); Hemoglobin 9.3 g/dL (12.0-15.0); Lymphocyte % 3.4 % (19-41); Mean Corp Hgb Conc 32.7 g/dL (32-36); Mean Corpuscular Hgb 30.1 pg (27.0-32.0); Mean Corpuscular Volume 91.9 fL (81-99); Mean Platelet Vol. 9.8 fl (6.2-12.0); Monocyte# 0.69 X10^3/uL; Monocyte% 4.7 % (0-10); NRBC Flagged by Analyzer 0 % (0-5); Neutrophil # 13.32 X10^3/uL (2.7-7.7); Neutrophil % 90.6 % (47-70); POSITIVE DIFFERENTIAL YES; Platelet Count 345 K/mm3 (150-450); RBC Distribution Width CV 12.8 % (11.6-14.6); RBC Distribution Width SD 42.4 fl (35.1-43.9); Red Blood Count 3.09 M/mm3 (4.2-5.4); White Blood Count 14.7 K/mm3 (4.4-11.0)
[2020-07-03 06:19] LABS: Differential Indicated SCAN CRITERIA MET
[2020-07-03] MEDS: Insulin Lispro 100 UNIT/ML INSULN.PEN SC ×3 (06:43→23:03)
[2020-07-03 07:06] LABS: AST(SGOT) 32 U/L (15-37); Alanine Aminotransfer ALT/SGPT 102 U/L (13-56); Alkaline Phosphatase 109 U/L (45-117); Anion Gap 8 (5-15); BUN 69 mg/dL (7-18); BUN/Creat Ratio 18.2 RATIO (10-20); Calcium,Total 8.9 mg/dL (8.5-10.1); Chloride 110 mmol/L (98-107); Cholesterol 164 mg/dL (200); Creatinine, Serum 3.79 mg/dL (0.55-1.02); EST Glomerular Filtration Rate 12 mL/min (>60); Est Glom Filt Rate - Afr Amer 15 mL/min (>60); Estimated Creatinine Clearance 9.37 ml/min; Globulin 3.1 g/dL (2.2-4.2); Glucose 439 mg/dL (74-106); High Density Lipoprotein 36 mg/dL; Potassium 4.1 mmol/L (3.5-5.1); Protein, Total 6.1 g/dL (6.4-8.2); Sodium Level 138 mmol/L (136-145); Thyroid Stim Hormone (TSH) 0.28 uIU/mL (0.358-3.74); Triglycerides 420 mg/dL
[2020-07-03 07:15] LABS: Bedside Glucose 347 mg/dL (70-110)
--- NOTE | 2020-07-03 07:26 | PCM.PN.HOSP ---
Patient Problems: Active and Suspected Problems Seizure (Suspected) CVA (cerebral vascular accident) (Acute) PAF (paroxysmal atrial fibrillation) (Acute) Objective: Patient heart rate and blood pressure are in normal range. No fever. Pulse ox 98% on room air. Patient denies any aphasia, slurring, dysphagia, focal new weakness or sensory abnormality. Physical exam General: Alert, Oriented x3, Cooperative HEENT: Atraumatic, PERRLA, EOMI, Normocephalic Oral: No Gingival or Mucosal Lesions/ Ulcerations Neck: Supple, No JVD, Negative Carotid Bruits Lungs: Air entry diminished in bilateral lung bases. No crepitation/rhonchi Cardiovascular: Regular rate, Regular Rhythm, Normal S1, Normal S2, No murmurs Abdomen: Bowel Sounds Present, Soft, Non Tender, Non-Distended : No renal angle tenderness. No suprapubic tenderness. Extremities: No edema, Capillary Refill Less than 3 Seconds Skin: No rashes, No breakdown Musculoskeletal: No Tenderness to Palpation of Joints or Extremities Neurological: NIH stroke scale 0. Cranial nerves II-XII grossly intact, Deep Tendon Reflexes 2+/4, no significant obvious sensory abnormality. Psych/Mental Status: Normal Affect, Appropriate. Vitals/I&O's: Vital Signs Temp Pulse Resp BP Pulse Ox 97.3 F L 58 L 16 143/63 H 98 07/03/20 04:04 07/03/20 04:04 07/03/20 04:04 07/03/20 04:04 07/03/20 04:04 Oxygen Delivery Method Room Air Weight: 156 lb 1.396 oz Body Mass Index (BMI) 27.0 Finger Stick Blood Glucose 586 Intake and Output for Last 24 Hours 07/01/20 07/02/20 07/03/20 23:59 23:59 23:59 Intake Total 340 / 340 Output Total 500 / 500 Balance -160 / -160 Laboratory Results 07/02/20 23:40: WBC 18.4 H, RBC 3.56 L, Hgb 11.0 L, Hct 36.0 L, MCV 101.1 H, MCH 30.9, MCHC 30.6 L, RDW Std Deviation 46.6 H, RDW Coeff of Ritchie 12.6, Plt Count 393, MPV 9.6, Immature Gran % (Auto) 1.000 H, Neut % (Auto) 94.0 H, Lymph % (Auto) 1.7 L, [place] % (Auto) 2.9, Eos % (Auto) 0.0, Baso % (Auto) 0.4, Absolute Neuts (auto) 17.3 H, Absolute Lymphs (auto) 0.32 L, Nucleated RBC % 0 07/02/20 23:40: PT 20.7 H, INR 1.8, APTT 57.4 H 07/02/20 23:40: Sodium 131 L, Potassium 4.5, Chloride 105, Carbon Dioxide 12.0 L, Anion Gap 14, BUN 75 H, Creatinine 4.03 H, Estim Creat Clear Calc 8.81, Est GFR (MDRD) Af Amer 14 L, Est GFR (MDRD) Non-Af 11 L, BUN/Creatinine Ratio 18.6, Glucose 715 H*, Calcium 9.0, Troponin I < 0.015 07/03/20 01:41: POC Glucose > 500 H* 07/03/20 02:52: Magnesium 2.0 07/03/20 02:52: Troponin I < 0.015 07/03/20 03:59: POC Glucose > 500 H* 07/03/20 05:55: WBC 14.7 H, RBC 3.09 L, Hgb 9.3 L, Hct 28.4 L, MCV 91.9 D, MCH 30.1, MCHC 32.7 D, RDW Std Deviation 42.4, RDW Coeff of Ritchie 12.8, Plt Count 345, MPV 9.8, Immature Gran % (Auto) 1.200 H, Neut % (Auto) 90.6 H, Lymph % (Auto) 3.4 L, [place] % (Auto) 4.7, Eos % (Auto) 0.0, Baso % (Auto) 0.1, Absolute Neuts (auto) 13.3 H, Absolute Lymphs (auto) 0.50 L, Nucleated RBC % 0 07/03/20 05:55: Hemoglobin A1c Pending 07/03/20 05:55: Sodium 138, Potassium 4.1, Chloride 110 H, Carbon Dioxide 20.0 L, Anion Gap 8, BUN 69 H, Creatinine 3.79 H, Estim Creat Clear Calc 9.37, Est GFR (MDRD) Af Amer 15 L, Est GFR (MDRD) Non-Af 12 L, BUN/Creatinine Ratio 18.2, Glucose 439 H, Calcium 8.9, Total Bilirubin 0.40, AST 32, ALT 102 H, Alkaline Phosphatase 109, Troponin I 0.023, Total Protein 6.1 L, Albumin 3.0 L, Globulin 3.1, Albumin/Globulin Ratio 1.0, Triglycerides 420 H, Cholesterol 164, LDL Cholesterol TNP, VLDL Cholesterol TNP, HDL Cholesterol 36 L, TSH 0.28 L 07/03/20 06:41: POC Glucose 347 H Current Medications Acetaminophen (Acetaminophen 325 Mg Tablet) 650 mg PO Q6H PRN PRN PRN Reason: Pain Score 1-10/Temp > 100.7 F Al Hydroxide/Mg Hydroxide (Mag Hydrox/Al Hydrox/Simeth 30 Ml Udc) 30 ml PO Q6H PRN PRN PRN Reason: Gastric Burning Albuterol Sulfate (Albuterol Ih 8.5 Gm (Proair) Inhaler (200 Puffs)) 4 - 8 puff INHALATION Q4H PRN PRN PRN Reason: Dyspnea, wheezing Allopurinol (Allopurinol 100 Mg Tablet) 100 mg PO DAILY VANNESSA Apixaban (Apixaban 2.5 Mg Tablet) 2.5 mg PO BID VANNESSA Aspirin (Aspirin 81 Mg Tab.Chew) 81 mg PO DAILY VANNESSA Atorvastatin Calcium (Atorvastatin Calcium 80 Mg Tablet) 80 mg PO QHS VANNESSA Atorvastatin Calcium (Atorvastatin Calcium 20 Mg Tablet) 20 mg PO DAILY [facility] Dexamethasone (Dexamethasone 2 Mg Tablet) 6 mg PO DAILY [facility] Dextrose (Dextrose 50%-Water 25 Gm/50 Ml Disp.Syrin) 0 gm IV X1 PRN; Protocol PRN Reason: Hypoglycemia Ezetimibe (Ezetimibe 10 Mg Tablet) 10 mg PO DAILY VANNESSA Ferrous Sulfate (Ferrous Sulfate 325 Mg Tablet) 325 mg PO DAILY [facility] Glucagon (Glucagon 1 Mg/Ml Syringe) 1 mg IM .X1 PRN PRN Reason: Hypoglycemia Guaifenesin (Guaifenesin 10 Ml Udc (200mg/10ml)) 20 ml PO Q4H PRN PRN PRN Reason: COUGH Hydralazine HCl (Hydralazine 20 Mg/Ml Vial) 5 mg IV Q30M PRN PRN Reason: to maintain BP goals Sodium Chloride () 1,000 mls @ 100 mls/hr IV .Q10H VANNESSA Stop: 07/03/20 11:11 Last Admin: 07/03/20 01:35 Dose: 100 mls/hr Documented by: Levetiracetam 500 mg/ Sodium (Chloride) 105 mls @ 400 mls/hr IV Q12 VANNESSA Sodium Chloride () 250 mls @ 15 mls/hr IV .[id number] PRN PRN Reason: Saline Flush Insulin Glargine (Insulin Glargine 100 Units/Ml Pen) 30 units SC BID VANNESSA Insulin Human Lispro (Insulin Lispro 100 Unit/Ml Insuln.Pen) 0 unit SC ACHS VANNESSA; Protocol Last Admin: 07/03/20 06:43 Dose: 12 u Documented by: Labetalol HCl (Labetalol (Prefilled) 20 Mg/4 Ml) 10 - 20 mg IV Q10M PRN PRN PRN Reason: to Maintain BP Goals Levothyroxine Sodium (Levothyroxine 75 Mcg Tablet) 75 mcg PO DAILY [facility] Magnesium Hydroxide (Magnesium Hydroxide 30 Ml Udc) 30 ml PO DAILY PRN PRN PRN Reason: Constipation Melatonin (Melatonin 3 Mg Tablet) 3 mg PO QHS PRN PRN PRN Reason: INSOMNIA Ondansetron HCl (Ondansetron 4 Mg/2 Ml Vial) 4 mg IV Q8H PRN PRN PRN Reason: NAUSEA/VOMITING Oxycodone HCl (Oxycodone 5 Mg Tablet) 5 mg PO Q4H PRN PRN PRN Reason: Pain Score 4-10 Pantoprazole Sodium (Pantoprazole Sodium 20 Mg Tablet) 20 mg PO DAILY [facility] Prochlorperazine Edisylate (Prochlorperazine 10 Mg/2 Ml Vial) 5 mg IV Q4H PRN PRN PRN Reason: Breakthrough Nausea/Vomiting Psyllium Hydrophilic Mucilloid (Psyllium 1 Packet) 1 packet PO DAILY PRN PRN PRN Reason: Constipation Senna/Docusate Sodium (Senna/Docusate Sodium 1 Tablet) 2 tablet PO BID PRN PRN PRN Reason: Constipation Sodium Chloride (0.9% Saline Lock 10 Ml Syringe) 10 - 40 ml IV UD PRN PRN Reason: SALINE FLUSH Throat Lozenges (Benzocaine/Menthol 1 Lozenge) 1 lozenge MUCOUS MEM Q2H PRN PRN PRN Reason: SORE THROAT STROKE Vital Signs/Narrative: Vital Signs Temp Pulse Resp BP Pulse Ox 07/03/20 04:04 97.3 F L 58 L 16 143/63 H 98 Medical Necessity - Tobacco Use Smoking Status: Former smoker Tobacco Use: Non-smoker Assessment/Plan All Active Problems Fall (Acute) CVA (cerebral vascular accident) (Acute) PAF (paroxysmal atrial fibrillation) (Acute) The patient is an 84 y/o F WITH HISTORY OF CKD stage IV with fistula but not on dialysis, recent 06/25/20-06/27/20 admission for acute hypoxic respiratory insuffiency suspected secondary to COVID-19 pneumonia is being admitted sudden onset of right facial droop, slurred speech, aphasia, difficulty in getting words out which improved on arrival to ED. 1. Transient strokelike symptoms, differential TIA/CVA, new onset seizure: Patient is being admitted in Covid cohort floor as she is still under quarantine precaution. Patient was given Keppra IV in ED and continued on 500 mg twice daily. MRI brain, MRA head and neck, echo, full stroke evaluation as per protocol ordered. EEG ordered. SOC neurology consult after work-up is complete. On aspirin, Eliquis 2.5 mg twice daily, atorvastatin. Serum magnesium 2.0, K4.1. TSH 0.28 2. New onset paroxysmal A. fib: EKG in ER shows A. fib, rate is controlled. On Eliquis 2.5 twice daily as creatinine more than 1.5 and age more than 80 years. Beta-kamron atenolol is on hold as patient heart rate is low and on permissive hypertension goal. 3. Recent COVID-19 pneumonia: Continue Decadron, Covid quarantine. On Decadron 6 mg daily therefore the steroid response with leukocytosis rest as mentioned above. 4. Chronic Kidney Disease Stage IV: Admission BUN/creatinine 75/4.03, similar to last discharge. Baseline creatinine 3.6-3.8. Today's lab shows mild improvement. The patient follows Dr. Mei as AV fistula access but dialysis not initiated. 5. Chronic iron deficiency anemia/anemia due to chronic kidney disease: Hemoglobin on baseline, 9.3. H&H was 11/36 time at admission probably concentrated. 6. Diabetes mellitus type II: Glucose was 115 at time of admission. AG 14, bicarb 12, sodium 113. Repeat shows improvement in BMP indicis. Anion gap 8. Bicarb 20. A1c 8.8. On Accu-Cheks before meals and at bedtime on sliding scale insulin. 7. Hypertension: continue permissive hypertension. 8. Hyperlipidemia: Fasting lipid profile shows triglyceride 420, total cholesterol 164, HDL 36, LDL and VLDL could not be calculated. Started on high intensity atorvastatin. 9. Hypothyroidism: TSH low 0.28. Free T4 0.97. Normal 10. GERD: continue patient home PPI. 11. DVT prophylaxis: SCDs, and Eliquis as mentioned above CODE STATUS DNR CCA no intubation Inpatient E&M: 41049 Subs Hosp L2
[2020-07-03 08:20] LABS: T4 Free Direct 0.97 ng/dL (0.76-1.46)
[2020-07-03 08:28] LABS: Hemoglobin A1c 8.8 % (3.8-5.6)
[2020-07-03] MEDS: APIXABAN 2.5 MG TABLET PO ×2 (09:13→22:42)
[2020-07-03] MEDS: Aspirin 81 MG TAB.CHEW PO (09:13)
[2020-07-03] MEDS: Allopurinol 100 MG Tablet PO (09:13)
[2020-07-03] MEDS: dexAMETHasone 2 MG TABLET 6 MG PO (09:13)
[2020-07-03] MEDS: Pantoprazole Sodium 20 MG Tablet PO (09:14)
[2020-07-03] MEDS: Ezetimibe 10 MG Tablet PO (09:14)
[2020-07-03] MEDS: Levothyroxine 75 MCG Tablet PO (09:14)
[2020-07-03] MEDS: Ferrous Sulfate 325 MG Tablet PO (09:14)
--- NOTE | 2020-07-03 10:52 | TELEMED_ITS ---
SOC Telemed has confirmed receipt of a request for visit. This document confirms receipt of the order initiating the consult. To find the results of the consultation, please view the patient's reports for the scanned Telemed Consult.
--- NOTE | 2020-07-03 12:26 | CASEMGMT ---
Social Work Phone call to pt room to discuss discharge options. SW introduced self and role of SW. Pt was discharged 06/27/20 with home oxygen. Pt states things had been going ok at home until yesterday when she was walking up a flight of stairs with lunch in her hand and she tripped and fell. Pt was unable to get up and was unable to assist as well. EMS was called. Pt states she had been using the home oxygen on and off as needed and that she was able to care for self (dressing and sponge bathing, not strong enough to get in the shower at this point), pt spouse is doing the cooking. SW inquired about discharge plan and pt is adamant that she will be able to return home. SW spoke with pt about home health and pt states she will need to talk to her PCP about this. SW explained home health services, benefits/reasons for accepting it and insurance coverage. Pt states she will consider. Update given to DAVID Morales. ACACIA/ZORAIDA to follow up for discharge needs. JULIA Abernathy
[2020-07-03] MEDS: Insulin Lispro 100 UNIT/ML INSULN.PEN 15 UNIT SC ×2 (12:41→17:15)
[2020-07-03] MEDS: LORazepam 2 MG/ML Syringe 1 MG IV (14:55)
--- NOTE | 2020-07-03 15:33 | NURSING ---
PT TOLERATING THE MRI WELL, LYING STILL WITHOUT COMPLAINTS.
[2020-07-03 16:16] LABS: Bedside Glucose 140 mg/dL (70-110)
--- NOTE | 2020-07-03 16:18 | NURSING ---
Patients , Landen, took home patients drivers license, insurance cards and a bank card.
[2020-07-03 17:31] LABS: Bedside Glucose 235 mg/dL (70-110)
[2020-07-03] MEDS: 0.9% Saline Lock 10 ML Syringe IV (22:41)
[2020-07-03] MEDS: Atorvastatin Calcium 80 MG Tablet PO (22:42)
[2020-07-04 00:21] LABS: Bedside Glucose 198 mg/dL (70-110)
[2020-07-04 03:28] VITALS: PULSE 50
[2020-07-04 04:00] VITALS: BP 149/69; PULSE 59; RESP 16; TEMP 36.1; O2SAT 97
[2020-07-04 07:53] VITALS: O2SAT 97
[2020-07-04] MEDS: Insulin Lispro 100 UNIT/ML INSULN.PEN 15 UNIT SC (07:54)
[2020-07-04] MEDS: Pantoprazole Sodium 20 MG Tablet PO (07:55)
[2020-07-04] MEDS: dexAMETHasone 2 MG TABLET 6 MG PO (07:55)
[2020-07-04] MEDS: APIXABAN 2.5 MG TABLET PO (07:56)
[2020-07-04] MEDS: Ferrous Sulfate 325 MG Tablet PO (07:56)
[2020-07-04] MEDS: Aspirin 81 MG TAB.CHEW PO (07:57)
[2020-07-04] MEDS: Levothyroxine 75 MCG Tablet PO (07:57)
[2020-07-04] MEDS: Allopurinol 100 MG Tablet PO (07:58)
[2020-07-04] MEDS: Ezetimibe 10 MG Tablet PO (07:58)
[2020-07-04 08:00] VITALS: PULSE 58
[2020-07-04 08:01] LABS: Absolute Lymphocyte Count 1.07 X10^3/uL (0.83-4.51); Absolute Neutrophil Count 16.9 X10^3/uL (2.0-7.7); Basophil# 0.03 X10^3/uL; Basophil% 0.2 % (0-1); Hematocrit 30.8 % (37-47); Hemoglobin 9.8 g/dL (12.0-15.0); Lymphocyte # 1.07 X10^3/ul (4.0); Lymphocyte % 5.5 % (19-41); Mean Corp Hgb Conc 31.8 g/dL (32-36); Mean Corpuscular Volume 94.2 fL (81-99); Monocyte# 0.93 X10^3/uL; Monocyte% 4.8 % (0-10); NRBC Flagged by Analyzer 0 % (0-5); Neutrophil # 16.92 X10^3/uL (2.7-7.7); Neutrophil % 87.7 % (47-70); Platelet Count 403 K/mm3 (150-450); RBC Distribution Width CV 13.1 % (11.6-14.6); Red Blood Count 3.27 M/mm3 (4.2-5.4); White Blood Count 19.3 K/mm3 (4.4-11.0)
[2020-07-04 08:38] LABS: Anion Gap 11 (5-15); BUN 69 mg/dL (7-18); Calcium,Total 9.4 mg/dL (8.5-10.1); Chloride 111 mmol/L (98-107); Creatinine, Serum 3.45 mg/dL (0.55-1.02); EST Glomerular Filtration Rate 13 mL/min (>60); Est Glom Filt Rate - Afr Amer 16 mL/min (>60); Estimated Creatinine Clearance 10.29 ml/min; Glucose 155 mg/dL (74-106); Sodium Level 140 mmol/L (136-145)
[2020-07-04 09:00] VITALS: BP 144/65; PULSE 60; RESP 16; TEMP 36.3; O2SAT 99
[2020-07-04 09:46] LABS: Bedside Glucose 145 mg/dL (70-110)
[2020-07-04] MEDS: 0.9% Saline Lock 10 ML Syringe IV (10:20)
--- NOTE | 2020-07-04 10:48 | DCINST_ITS ---
- Discharge Diagnoses Current Active Problems: Current Active and Chronic Problems CVA (cerebral vascular accident) (Acute) PAF (paroxysmal atrial fibrillation) (Acute) Chronic back pain (Chronic) Fe deficiency anemia (Chronic) Chronic kidney disease (Chronic) Hyperlipidemia (Chronic) Overweight (BMI 25.0-29.9) (Chronic) Anemia of chronic disease (Chronic) Hypertension (Chronic) Hypothyroid (Chronic) Barretts esophagus (Chronic) GERD (gastroesophageal reflux disease) (Chronic) Diabetes mellitus, type II (Chronic) You will use the following diet at home:: Calorie/Carbohydrate Controlled (specify 1200, 1400, etc) - 1800 ADA DIET Your food should be the consistency of: Regular Discharge Activity: May Not Drive Weight Bearing Status: Weight bearing as tolerated Call your doctor if you observe: Fever of 101 or Higher, Coldness, Increased Pain, Numbness or Tingling, Change in Color, Inability to urinate, Inability to have a bowel movement, Shortness of breath, Dizziness, Fainting spells, Swelling in the ankles, Prolonged hiccoughing, Increased palpitations (irregular heartbeat), Calf discomfort, Uncontrolled pain Allergies/Adverse Reactions: Allergies No Known Allergies Allergy (Verified 07/02/20 21:07) Medications to take at Discharge Atenolol [Tenormin (beta kamron)] 50 mg PO DAILY #30 03/18/13 Ferrous Sulfate 325 mg PO DAILY #30 03/18/13 Levothyroxine [Synthroid] 75 mcg PO DAILY #30 03/18/13 Omeprazole [Prilosec] 20 mg PO DAILY #30 03/18/13 Biotin 1,000 mg PO DAILY 06/18/13 Glimepiride 4 mg PO BID 06/18/13 Oxycodone HCl/Acetaminophen [Percocet 5-325] 1 - 2 tablet PO Q6H PRN PRN #30 tablet 08/15/13 Allopurinol 100 mg PO DAILY 06/25/20 Amlodipine [Norvasc] 10 mg PO DAILY 06/25/20 Apixaban [Eliquis] 2.5 mg PO BID #28 tab 06/27/20 Atorvastatin Calcium [Lipitor] 80 mg PO QHS #30 tab 07/04/20 Ezetimibe [Zetia] 10 mg PO DAILY #30 tab 07/04/20 Insulin Glargine [Lantus SoloStar Pen] 30 units SQ BID #0 07/04/20 Levetiracetam [Keppra] 500 mg PO BID #60 tab 07/04/20 dexAMETHasone [Dexamethasone] 6 mg PO DAILY #24 tab 07/04/20 The following prescriptions were given: Levetiracetam [Keppra] 500 mg PO BID #60 tab Transmission Status: Received by [facility] Atorvastatin Calcium [Lipitor] 80 mg PO QHS #30 tab Transmission Status: Received by [facility] Ezetimibe [Zetia] 10 mg PO DAILY #30 tab Transmission Status: Received by [facility] Primary Care Physician: Keo Rondon MD [Primary Care Provider] - Please follow up with your Primary Care Physician in: IN 2 WEEKS Test Results: Test results from this visit will be discussed in further detail at your follow- up appointment, if applicable. Please Follow Up With: Artur Chavez MD When: IN 2 WEEKS FOR SUSPICION OF SEIZURE
--- NOTE | 2020-07-04 10:50 | PCM.DC.SUM ---
Discharge Date and Diagnosis - Problem List Patient Problems: Active and Suspected Problems Seizure (Suspected) CVA (cerebral vascular accident) (Acute) PAF (paroxysmal atrial fibrillation) (Acute) Date of Admission: 07/02/20 Date of Discharge: 07/04/20 - Primary Discharge Diagnosis Acute Problems: Active Problems CVA (cerebral vascular accident) (Acute) PAF (paroxysmal atrial fibrillation) (Acute) Suspected Problems: Suspected Problems Seizure (Suspected) - Secondary Discharge Diagnosis Chronic Problems: Chronic Problems Chronic back pain (Chronic) Fe deficiency anemia (Chronic) Chronic kidney disease (Chronic) Hyperlipidemia (Chronic) Overweight (BMI 25.0-29.9) (Chronic) Anemia of chronic disease (Chronic) Hypertension (Chronic) Hypothyroid (Chronic) Lumbar stenosis (Chronic) Barretts esophagus (Chronic) GERD (gastroesophageal reflux disease) (Chronic) Diabetes mellitus, type II (Chronic) Hospital Course and Treatment Operations: None Summary of Care Provided: [] The patient is an 84 y/o F WITH HISTORY OF CKD stage IV with fistula but not on dialysis, recent 06/25/20-06/27/20 admission for acute hypoxic respiratory insuffiency suspected secondary to COVID-19 pneumonia is being admitted sudden onset of right facial droop, slurred speech, aphasia, difficulty in getting words out which improved on arrival to ED. 1. Transient strokelike symptoms, differential TIA/CVA, new onset seizure: The patient was admitted on Covid cohort floor but was transferred to PCU after quarantine was discontinued as per ID recommendation. Patient was given Keppra IV in ED and continued on 500 mg twice daily. MRI brain does not show acute stroke or acute intracranial abnormality. MRA head and neck reported normal. EEG was done and reported normal awake EEG.On aspirin, Eliquis 2.5 mg twice daily, atorvastatin. Serum magnesium 2.0, K4.1. TSH 0.28. [facility] neurology consult was done. Neurologist advised to continue Keppra 500 mg twice daily, Eliquis. Follow-up neurology as an outpatient. Patient had echo in June 2013 reported EF 65% with no Doppler evidence for ASD. Echo was ordered but not done, reason unclear. patient can have an echo as an outpatient. I called the patient and advised to get 2D echo through primary care physician in 2 weeks. 2. New onset paroxysmal A. fib: EKG in ER shows A. fib, rate is controlled. On Eliquis 2.5 twice daily as creatinine more than 1.5 and age more than 80 years. Beta-kamron atenolol was held as patient heart rate is low and on permissive hypertension goal. 3. Recent COVID-19 pneumonia: Continue Decadron, Covid quarantine. On Decadron 6 mg daily therefore the steroid response with leukocytosis rest as mentioned above. 4. Chronic Kidney Disease Stage IV: Admission BUN/creatinine 75/4.03, similar to last discharge. Baseline creatinine 3.6-3.8. Today's lab shows mild improvement. The patient follows Dr. Mei as AV fistula access but dialysis not initiated. 5. Chronic iron deficiency anemia/anemia due to chronic kidney disease: Hemoglobin on baseline, 9.3. H&H was 11/36 time at admission probably concentrated. 6. Diabetes mellitus type II: Glucose was 115 at time of admission. AG 14, bicarb 12, sodium 113. Repeat shows improvement in BMP indicis. Anion gap 8. Bicarb 20. A1c 8.8. On Accu-Cheks before meals and at bedtime on sliding scale insulin. 7. Hypertension: continue permissive hypertension. 8. Hyperlipidemia: Fasting lipid profile shows triglyceride 420, total cholesterol 164, HDL 36, LDL and VLDL could not be calculated. Started on high intensity atorvastatin. 9. Hypothyroidism: TSH low 0.28. Free T4 0.97. Normal 10. GERD: continue patient home PPI. 11. DVT prophylaxis: SCDs, and Eliquis as mentioned above CODE STATUS DNR CCA no intubation Discharge medication reconciliation done. Discharge follow-up instructions completed. Discharge process discussed with the patient and all questions were answered to patient's satisfaction. Discharge medications including Keppra, Eliquis were discussed with the patient. Advised to follow-up with neurologist in 2 weeks. Total time spent, exact 35 minutes on discharge meds reconciliation, examination, coordination of care with nurses and ancillary staff, review of imaging and blood test and discussion with the patient on follow-up instructions Clinical Impression(s) from Imaging Studies Brain CT 07/02/20 20:46 IMPRESSION: No change or acute abnormality. Atrophy. White matter disease. 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 No gross infarcts. No hemorrhage. Chest X-Ray 07/02/20 21:50 IMPRESSION: Normal x-ray examination of the chest. Electronically Signed: Jos Horn MD at 22:17 EST , Service support , Brain MRI 07/03/20 01:12 IMPRESSION: 1. No MRI evidence of acute or subacute ischemic infarct or acute intracranial abnormality. 2. Multiple chronic white matter ischemic changes in both cerebral hemispheres. Electronically Signed: Hua Jones MD at 15:59 EST , Service support , Head MRA 07/03/20 01:12 IMPRESSION: Normal MRA of the head Neck MRA 07/03/20 01:12 IMPRESSION: Normal bilateral cervical carotid and vertebral arteries. Patient Problems: Active and Suspected Problems Seizure (Suspected) CVA (cerebral vascular accident) (Acute) PAF (paroxysmal atrial fibrillation) (Acute) Objective: Seen and examined. Patient does not have any residual neurological deficit including weakness, aphasia, slurring, dysphagia. Vital signs are in acceptable range for permissive hypertension Physical exam General: Alert, Oriented x3, Cooperative HEENT: Atraumatic, PERRLA, EOMI, Normocephalic Oral: No Gingival or Mucosal Lesions/ Ulcerations Neck: Supple, No JVD, Negative Carotid Bruits Lungs: Air entry equal in bilateral lung bases. No crepitation/rhonchi Cardiovascular: Regular rate, Regular Rhythm, Normal S1, Normal S2, No murmurs Abdomen: Bowel Sounds Present, Soft, Non Tender, Non-Distended : No renal angle tenderness. No suprapubic tenderness. Extremities: No edema, Capillary Refill Less than 3 Seconds Skin: No rashes, No breakdown Musculoskeletal: No Tenderness to Palpation of Joints or Extremities Neurological: NIH stroke scale 0. Cranial nerves II-XII grossly intact, Deep Tendon Reflexes 2+/4, no significant obvious sensory abnormality. Psych/Mental Status: Normal Affect, Appropriate. - Physical Exam Vitals/I&O's: Vital Signs Temp Pulse Resp BP Pulse Ox 97.4 F L 60 16 144/65 H 99 07/04/20 09:00 07/04/20 09:00 07/04/20 09:00 07/04/20 09:00 07/04/20 09:00 Oxygen Delivery Method Room Air Weight: 159 lb 2.78 oz Body Mass Index (BMI) 27.0 Finger Stick Blood Glucose 586 Intake and Output for Last 24 Hours 07/02/20 07/03/20 07/04/20 23:59 23:59 23:59 Intake Total 1550 / 1550 200 / 200 Output Total 500 / 500 600 / 600 Balance 1050 / 1050 -400 / -400 Laboratory Results 07/03/20 11:44: POC Glucose 140 H 07/03/20 17:13: POC Glucose 235 H 07/03/20 21:54: POC Glucose 198 H 07/04/20 06:34: WBC 19.3 H, RBC 3.27 L, Hgb 9.8 L, Hct 30.8 L, MCV 94.2, MCH 30.0, MCHC 31.8 L, RDW Std Deviation 45.0 H, RDW Coeff of Ritchie 13.1, Plt Count 403, MPV 10.0, Immature Gran % (Auto) 1.800 H, Neut % (Auto) 87.7 H, Lymph % (Auto) 5.5 L, [place] % (Auto) 4.8, Eos % (Auto) 0.0, Baso % (Auto) 0.2, Absolute Neuts (auto) 16.9 H, Absolute Lymphs (auto) 1.07, Nucleated RBC % 0 07/04/20 06:34: Sodium 140, Potassium 4.0, Chloride 111 H, Carbon Dioxide 18.0 L, Anion Gap 11, BUN 69 H, Creatinine 3.45 H, Estim Creat Clear Calc 10.29, Est GFR (MDRD) Af Amer 16 L, Est GFR (MDRD) Non-Af 13 L, BUN/Creatinine Ratio 20.0, Glucose 155 H, Calcium 9.4 07/04/20 07:45: POC Glucose 145 H Current Medications Acetaminophen (Acetaminophen 325 Mg Tablet) 650 mg PO Q6H PRN PRN PRN Reason: Pain Score 1-10/Temp > 100.7 F Al Hydroxide/Mg Hydroxide (Mag Hydrox/Al Hydrox/Simeth 30 Ml Udc) 30 ml PO Q6H PRN PRN PRN Reason: Gastric Burning Albuterol Sulfate (Albuterol Ih 8.5 Gm (Proair) Inhaler (200 Puffs)) 4 - 8 puff INHALATION Q4H PRN PRN PRN Reason: Dyspnea, wheezing Allopurinol (Allopurinol 100 Mg Tablet) 100 mg PO DAILY [facility] Last Admin: 07/04/20 07:58 Dose: 100 mg Documented by: Apixaban (Apixaban 2.5 Mg Tablet) 2.5 mg PO BID [facility] Last Admin: 07/04/20 07:56 Dose: 2.5 mg Documented by: Aspirin (Aspirin 81 Mg Tab.Chew) 81 mg PO DAILY [facility] Last Admin: 07/04/20 07:57 Dose: 81 mg Documented by: Atorvastatin Calcium (Atorvastatin Calcium 80 Mg Tablet) 80 mg PO QHS [facility] Last Admin: 07/03/20 22:42 Dose: 80 mg Documented by: Dexamethasone (Dexamethasone 2 Mg Tablet) 6 mg PO DAILY [facility] Last Admin: 07/04/20 07:55 Dose: 6 mg Documented by: Dextrose (Dextrose 50%-Water 25 Gm/50 Ml Disp.Syrin) 0 gm IV X1 PRN; Protocol PRN Reason: Hypoglycemia Ezetimibe (Ezetimibe 10 Mg Tablet) 10 mg PO DAILY [facility] Last Admin: 07/04/20 07:58 Dose: 10 mg Documented by: Ferrous Sulfate (Ferrous Sulfate 325 Mg Tablet) 325 mg PO DAILY [facility] Last Admin: 07/04/20 07:56 Dose: 325 mg Documented by: Glucagon (Glucagon 1 Mg/Ml Syringe) 1 mg IM .X1 PRN PRN Reason: Hypoglycemia Guaifenesin (Guaifenesin 10 Ml Udc (200mg/10ml)) 20 ml PO Q4H PRN PRN PRN Reason: COUGH Hydralazine HCl (Hydralazine 20 Mg/Ml Vial) 5 mg IV Q30M PRN PRN Reason: As per stroke guideline Levetiracetam 500 mg/ Sodium (Chloride) 105 mls @ 400 mls/hr IV Q12 [facility] Last Admin: 07/04/20 10:17 Dose: 400 mls/hr Documented by: Sodium Chloride () 250 mls @ 15 mls/hr IV .[id number] PRN PRN Reason: Saline Flush Insulin Glargine (Insulin Glargine 100 Units/Ml Pen) 30 units SC BID [facility] Last Admin: 07/04/20 07:59 Dose: 30 u Documented by: Insulin Human Lispro (Insulin Lispro 100 Unit/Ml Insuln.Pen) 0 unit SC ACHS [facility]; Protocol Last Admin: 07/04/20 07:55 Dose: Not Given Documented by: Insulin Human Lispro (Insulin Lispro 100 Unit/Ml Insuln.Pen) 15 unit SC TIDAC [facility] Last Admin: 07/04/20 07:54 Dose: 15 u Documented by: Labetalol HCl (Labetalol (Prefilled) 20 Mg/4 Ml) 10 - 20 mg IV Q10M PRN PRN PRN Reason: to Maintain BP Goals Levothyroxine Sodium (Levothyroxine 75 Mcg Tablet) 75 mcg PO DAILY [facility] Last Admin: 07/04/20 07:57 Dose: 75 mcg Documented by: Melatonin (Melatonin 3 Mg Tablet) 3 mg PO QHS PRN PRN PRN Reason: INSOMNIA Ondansetron HCl (Ondansetron 4 Mg/2 Ml Vial) 4 mg IV Q8H PRN PRN PRN Reason: NAUSEA/VOMITING Oxycodone HCl (Oxycodone 5 Mg Tablet) 5 mg PO Q4H PRN PRN PRN Reason: Pain Score 4-10 Pantoprazole Sodium (Pantoprazole Sodium 20 Mg Tablet) 20 mg PO DAILY [facility] Last Admin: 07/04/20 07:55 Dose: 20 mg Documented by: Prochlorperazine Edisylate (Prochlorperazine 10 Mg/2 Ml Vial) 5 mg IV Q4H PRN PRN PRN Reason: Breakthrough Nausea/Vomiting Psyllium Hydrophilic Mucilloid (Psyllium 1 Packet) 1 packet PO DAILY PRN PRN PRN Reason: Constipation Senna/Docusate Sodium (Senna/Docusate Sodium 1 Tablet) 2 tablet PO BID PRN PRN PRN Reason: Constipation Sodium Chloride (0.9% Saline Lock 10 Ml Syringe) 10 - 40 ml IV UD PRN PRN Reason: SALINE FLUSH Last Admin: 07/04/20 10:20 Dose: 10 ml Documented by: Throat Lozenges (Benzocaine/Menthol 1 Lozenge) 1 lozenge MUCOUS MEM Q2H PRN PRN PRN Reason: SORE THROAT Discharge Activity: May Not Drive Weight Bearing Status: Weight bearing as tolerated Call your doctor if you observe: Fever of 101 or Higher, Coldness, Increased Pain, Numbness or Tingling, Change in Color, Inability to urinate, Inability to have a bowel movement, Shortness of breath, Dizziness, Fainting spells, Swelling in the ankles, Prolonged hiccoughing, Increased palpitations (irregular heartbeat), Calf discomfort, Uncontrolled pain Home Medications: Medications to take at Discharge Atenolol [Tenormin (beta kamron)] 50 mg PO DAILY #30 03/18/13 Ferrous Sulfate 325 mg PO DAILY #30 03/18/13 Levothyroxine [Synthroid] 75 mcg PO DAILY #30 03/18/13 Omeprazole [Prilosec] 20 mg PO DAILY #30 03/18/13 Biotin 1,000 mg PO DAILY 06/18/13 Glimepiride 4 mg PO BID 06/18/13 Oxycodone HCl/Acetaminophen [Percocet 5-325] 1 - 2 tablet PO Q6H PRN PRN #30 tablet 08/15/13 Allopurinol 100 mg PO DAILY 06/25/20 Amlodipine [Norvasc] 10 mg PO DAILY 06/25/20 Apixaban [Eliquis] 2.5 mg PO BID #28 tab 06/27/20 Atorvastatin Calcium [Lipitor] 80 mg PO QHS #30 tab 07/04/20 Ezetimibe [Zetia] 10 mg PO DAILY #30 tab 07/04/20 Insulin Glargine [Lantus SoloStar Pen] 30 units SQ BID #0 07/04/20 Levetiracetam [Keppra] 500 mg PO BID #60 tab 07/04/20 dexAMETHasone [Dexamethasone] 6 mg PO DAILY #24 tab 07/04/20 Following Prescriptions Were Given to Patient: Levetiracetam [Keppra] 500 mg PO BID #60 tab Transmission Status: Received by [facility] Atorvastatin Calcium [Lipitor] 80 mg PO QHS #30 tab Transmission Status: Received by [facility] Ezetimibe [Zetia] 10 mg PO DAILY #30 tab Transmission Status: Received by [facility] Primary Care Physician: Keo Rondon MD [Primary Care Provider] - Please follow up with your Primary Care Physician in: IN 2 WEEKS Please Follow Up With: Artur Chavez MD When: IN 2 WEEKS FOR SUSPICION OF SEIZURE Medical Necessity - Tobacco Use Smoking Status: Former smoker Tobacco Use: Non-smoker Meaningful Use Info Meaningful Use Diagnoses (Choose all that apply): None applicable Inpatient E&M: 40081 Disch Hosp
[2020-07-04 11:16] LABS: Bedside Glucose 240 mg/dL (70-110)
[2020-07-04 12:00] VITALS: PULSE 64
== END 2020-07-04 10:49 | disposition home or self-care (01) ==
LOC: ED 20:59 → MS2 23:11 → PCU 07-03 18:57
PROVIDERS: Admitting Provider Family Medicine; Emergency Provider Emergency Medicine; PCP Internal Medicine; Visit Provider Internal Medicine
DX: R29.810 Facial weakness (principal); R47.81 Slurred speech; I48.0 Paroxysmal atrial fibrillation; G89.29 Other chronic pain; E78.5 Hyperlipidemia, unspecified; N18.4 Chronic kidney disease, stage 4 (severe); E11.22 Type 2 diabetes mellitus with diabetic chronic kidney disease; I12.9 Hypertensive chronic kidney disease with stage 1 through stage 4 chronic kidney disease, or unspecified chronic kidney disease; D63.1 Anemia in chronic kidney disease; E03.9 Hypothyroidism, unspecified; K22.70 Barrett's esophagus without dysplasia; K21.9 Gastro-esophageal reflux disease without esophagitis; D50.9 Iron deficiency anemia, unspecified; M10.9 Gout, unspecified; N17.9 Acute kidney failure, unspecified; R47.01 Aphasia; R25.3 Fasciculation; R09.02 Hypoxemia; Z79.899 Other long term (current) drug therapy; Z79.4 Long term (current) use of insulin; Z79.01 Long term (current) use of anticoagulants; Z87.891 Personal history of nicotine dependence; Z86.16 Personal history of COVID-19
CPT/HCPCS: 36415; 70450; 70544; 70547; 70551; 71045; 80048; 80053; 80061; 82962; 83036; 83735; 84439; 84443; 84484; 85025; 85610; 85730; 92526; 92610; 93005; 94762; 95819; 96361; 96365; 96366; 96375; 97162; 97166; 97530; 97802; 99218; 99251; 99285; J7030; A4216; G0378; G0463

== ENCOUNTER → 2020-11-16 14:31 | Outpatient (CLI) | payer MEDICARE, SELFPAY ==
[2020-07-03 01:22] VITALS: BMI 27.0
--- NOTE | 2020-11-16 14:34 | RAD_ITS ---
STUDY: X-RAY - LUMBAR SPINE REASON FOR EXAM: Female, 85 years old. BACK PAIN TECHNIQUE: 3 view(s) of the lumbar spine were obtained. COMPARISON: 12/14/2018 FINDINGS: Normal lumbar lordosis. Mild levoscoliosis centered at L3. There is a normal alignment of the vertebrae. There is multilevel endplate spondylosis of the lumbar vertebrae. There is multi-level degenerative disc disease with multi-level disc space narrowing. The soft tissue structures are unremarkable. RAD/Lumbar Spine 2 or 3 Views IMPRESSION: Mild levoscoliosis with diffuse degenerative disc disease per Electronically Signed: Landen Lambert MD at 15:22 EDT Tel , Service support ,
== END ==
PROVIDERS: PCP Internal Medicine; Referring Provider Anesthesiology Pain Medicine; Visit Provider Anesthesiology Pain Medicine
DX: M54.9 Dorsalgia, unspecified (principal)
CPT/HCPCS: 72100

== ENCOUNTER → 2020-12-03 14:19 | Outpatient (CLI) | payer MEDICARE, SELFPAY ==
[2020-11-24 13:25] VITALS: BMI 27.0
== END ==
PROVIDERS: PCP Internal Medicine; Referring Provider Surgery; Visit Provider Surgery
DX: Z20.828 Contact with and (suspected) exposure to other viral communicable diseases (principal); Z01.818 Encounter for other preprocedural examination
CPT/HCPCS: 87426; C9803

== ENCOUNTER → 2020-12-26 07:51 | Outpatient (CLI) | payer MEDICARE, SELFPAY ==
[2020-11-24 13:25] VITALS: BMI 27.0
--- NOTE | 2020-12-26 08:04 | MRI_ITS ---
STUDY: MRI LUMBAR SPINE WITHOUT CONTRAST REASON FOR EXAM: Female, 85 years old. BACK AND LEFT LEG PAIN, 2 prev lumbar surgeries TECHNIQUE: Standardized fat and water weighted pulse sequences were obtained in the sagittal and axial planes. COMPARISON: X-ray 12/14/2018 FINDINGS: T12-L1: Normal endplates. Normal disc height, hydration and morphology. Normal bilateral facet joints. Normal central canal and bilateral lateral recesses. Normal bilateral intervertebral neural foramina. Normal lumbar lordosis. There is no substantial scoliosis. Normal conus medullaris that terminates at the L1/L2. L1-2: Moderate bilobed disc protrusion produces moderate spinal stenosis with moderate bilateral lateral recess stenosis and moderate bilateral neural foraminal stenosis. L2-3: Mild bilobed disc protrusion produces mild spinal stenosis with mild bilateral lateral recess stenosis and mild bilateral neural foraminal stenosis. L3-4: Mild bilateral facet hypertrophy and ligament flavum hypertrophy. Moderate broad disc protrusion produces moderate spinal stenosis with moderate bilateral lateral recess stenosis with abutment of the L4 nerve roots bilaterally and moderate bilateral neural foraminal stenosis. L4-5: Status post posterior decompression. Moderate broad disc protrusion produces moderate spinal stenosis relieved by the posterior decompression and moderate bilateral neural foraminal stenosis with abutment of exiting L4 nerve roots bilaterally. L5-S1: Status post posterior decompression. Mild bilateral facet hypertrophy and ligament flavum hypertrophy. Moderate broad disc protrusion produces moderate spinal stenosis centrally by the postradiation compression and severe bilateral neural foraminal stenosis with effacement of the L5 nerve roots bilaterally. Normal visualized sacral ala. Moderate friction related edema of the posterior subcutaneous fat. MRI/Spine Lumbar (Routine) IMPRESSION: Postsurgical changes and degenerative disc disease as described above. Electronically Signed: Landen Lambert MD at 13:52 EDT Tel , Service support ,
== END ==
PROVIDERS: PCP Internal Medicine; Referring Provider Anesthesiology Pain Medicine; Visit Provider Anesthesiology Pain Medicine
DX: M54.16 Radiculopathy, lumbar region (principal); M54.17 Radiculopathy, lumbosacral region; M51.36 Other intervertebral disc degeneration, lumbar region; M51.37 Other intervertebral disc degeneration, lumbosacral region
CPT/HCPCS: 72148

== ENCOUNTER 2021-05-30 15:58 | Inpatient (IN) | payer MEDICARE, SELFPAY ==
[2021-05-30 15:59] VITALS: BP 144/60; PULSE 72; RESP 16; TEMP 36.9; O2SAT 100; BMI 24.1
[2021-05-30 16:20] LABS: Bedside Glucose 58 mg/dL (70-110)
--- NOTE | 2021-05-30 16:35 | EX.ED.DYSGE1 ---
HPI History of Present Illness Chief Complaint: General Illness Informant: patient Onset/Context/Timing Onset: Today Context: Gradual Onset Timing: Continuous Current Severity: Mild Maximum Severity: Mild Narrative Narrative: 85-year-old female in March her . She has been at home caring for her ill dog. Since she ate dinner last night but has not had any breakfast or lunch today. She was not feeling well just feeling generally weak was not able to really do anything around the House today. She went to stand up several times and felt very weak. Says she felt woozy. She called the paramedics herself when they got there her blood sugar is running around 60 and they gave her glucagon. Said she had a similar episode like this before with low blood sugar. She denies any recent illness. She denies vomiting, diarrhea or fever. She denies headache, chest pain, shortness of breath or abdominal pain. No dysuria. Prior similar symptoms: Yes Recent Illness/Hospitalization: No PFSH PFS Medical History Ambulates with cane Cardiology follow-up encounter Easy bruising Excessive bleeding Former smoker Gout High cholesterol History of atrial fibrillation History of edema History of GI bleed History of renal disease History of stress test Insulin dependent diabetes mellitus Leg cramps Low iron Post-menopausal Seizures Thyroid disease TIA (transient ischemic attack) Wears glasses Home Medications biotin 1,000 mg PO DAILY 06/18/13 [History Last Taken Unknown] glimepiride 4 mg PO BID 06/18/13 [History Last Taken 08/13/13 04:00] allopurinol 100 mg PO DAILY 06/25/20 [History Last Taken 06/24/20 09:00] amlodipine 10 mg PO DAILY 06/25/20 [History Last Taken Unknown] furosemide 40 mg tablet 40 mg PO DAILY 11/24/20 [History Last Taken Unknown] levothyroxine 100 mcg tablet 100 mcg PO DAILY tab 11/24/20 [History Last Taken Unknown] apixaban 2.5 mg PO DAILY 11/30/20 [History Last Taken Unknown] atenolol 50 mg PO DAILY 11/30/20 [History Last Taken Unknown] insulin glargine 40 units SQ QHS 11/30/20 [History Last Taken Unknown] levetiracetam 250 mg PO BID 11/30/20 [History Last Taken Unknown] losartan 50 mg PO BID 11/30/20 [History Last Taken Unknown] rosuvastatin [Crestor] 40 mg PO QHS 11/30/20 [History Last Taken Unknown] tramadol 50 mg PO BID PRN 11/30/20 [History Last Taken Unknown] Allergy/AdvReac Type Severity Reaction Status Date / Time COVID-19 vaccine, mRNA, AdvReac Severe seizure Verified 05/30/21 15:59 [id number], L and new Afib oxycodone [From Percocet] AdvReac Other Verified 05/30/21 15:59 Family History Mother Heart disease Sister Diabetes Son Heart disease Myocardial infarction Surgical History History of arteriovenostomy for renal dialysis History of back surgery History of cardiac catheterization History of cataract extraction History of cholecystectomy History of colonoscopy (~2008) History of esophagogastroduodenoscopy (EGD) History of hysterectomy History of squamous cell carcinoma excision History of tonsillectomy Social History Smoking Status: Former smoker ROS ROS ED ROS Narrative Generalized weakness. Nausea well taking in the oral glucose. Review of Systems ROS Unobtainable: due to encephalopathy Constitutional Constitutional ED: Denies chills or fever(s) Eyes Eyes: Denies change in vision ENT ENT ED: Denies ear pain Cardiovascular Cardiovascular: Denies chest pain Respiratory/Chest Respiratory/Chest: Denies cough or dyspnea Gastrointestinal Gastrointestinal: Reports nausea; Denies abdominal pain, diarrhea or vomiting Genitourinary Genitourinary ED: Denies dysuria Musculoskeletal Musculoskeletal: Denies myalgias Integumentary Denies rash Neurologic Neurologic: Denies headache(s) Psychiatric Psychiatric: Denies depression Endocrine Endocrinology: Denies polyuria Allergic/Immunologic Allergic/Immunologic ED: Denies urticaria EXAM Physical Exam Narrative Exam Narrative: A 5-year-old female no acute distress vital signs stable afebrile. Pulse ox 100% on room air no signs hypoxia. HEENT exam unremarkable atraumatic. Pupils round reactive light. No facial droop. Moist mucous memories. Neck nontender no lymphadenopathy. Lungs clear to auscultation. Heart regular rhythm no murmur. Abdomen soft nontender normal bowel sounds no peritoneal signs. Moving all 4 extremities. Normal web services professional strength. Normal dorsi plantar flexion. No edema. Neurologically she is awake and alert. Knows day, month, year president eyes states that no yesterday was Patrick. No focal motor deficits. Const Vital Signs: 05/30/21 15:59 05/30/21 18:48 Temperature 98.5 F Temperature Source Temporal Pulse Rate 72 Respiratory Rate 16 22 H Blood Pressure 144/60 H Blood Pressure Mean 88 Pulse Ox 100 Oxygen Delivery Method Room Air Positive well nourished and well developed; Negative for cachectic, contractures or unkempt General Appearance ED: well developed and NAD; Negative for unkempt, cachectic, contractures, cyanotic, diaphoretic or pallor Nutritional Appearance: Negative for cachectic HEENT Reports moist mucous membranes Negative for trauma or tenderness Eyes PERRL and EOMs intact bilaterally Neck no lymphadenopathy, supple and no JVD General: Negative for tenderness Chest Wall inspection of chest normal and palpation of chest normal Resp normal respiratory effort and clear to auscultation bilaterally Effort and Inspection: Negative for pain with movement Auscultation: Negative for rales, rhonchi or wheezes Cardio regular rate, regular rhythm, S1 normal heart sound, S2 normal heart sound and no murmurs GI normal to inspection, nondistended, normoactive bowel sounds, non-tender, non-distended and no masses Inspection: Negative for abdominal distention Auscultation: normoactive bowel sounds Palpation: soft; Negative for tender, guarding or rebound tenderness present Back/Spine no CVA tenderness General Back: Negative for CVA tenderness Cervical Spine: Negative for cervical spine tenderness Thoracic Spine / Upper Back: Negative for thoracic spinal tenderness Extremity normal to inspection General Extremety ED: Negative for tenderness Neuro oriented x3 and no sensory deficits noted Sensorium / Orientation: alert; Negative for orientation impaired, lethargic or stuporous Motor Exam: strength 5/5 throughout; Negative for general weakness Psych mental status grossly normal Appearance: Negative for unkempt Attitude: No agitated Mood & Affect: Negative for depressed or tearful Skin no rashes or lesions noted and no wounds General Skin Exam: Negative for jaundice or pallor MDM MDM MDM Narrative Medical decision making narrative: 85-year-old female hypoglycemia. Otherwise exam unremarkable. Screening labs will be obtained. Repeat exam unchanged at 7:15 PM. Patient did eat reportedly on hold diet tray. Patient to be rechecked. Should be given a fluid bolus of 1 L. I discussed with her the need for admission due to her acute on chronic renal insufficiency with acute kidney injury. She has a left forearm fistula I told her 6 years ago she might have to start dialysis but she is never needed to as of yet. Lab Data Attestation: I reviewed the patient's lab results. Lab results narrative: CBC shows a white count 8.8. Hemoglobin 11.1. Platelets of 305. Electrolytes potassium of 3.2 gap 11 CO2 Is 16. Her BUN is elevated at 54 creatinine is 6 consistent with acute kidney injury and significant renal insufficiency. Patient will need to be admitted. Liver enzymes unremarkable. Glucose 66 to be rechecked. Labs: Laboratory Results - last 24 hr 05/30/21 05/30/21 05/30/21 16:12 16:32 16:32 WBC 8.8 RBC 3.51 L Hgb 11.1 L Hct 35.0 L MCV 99.7 H MCH 31.6 MCHC 31.7 L RDW Std Deviation 48.7 H RDW Coeff of Ritchie 13.2 Plt Count 305 MPV 10.3 Immature Gran % (Auto) 0.200 Neut % (Auto) 78.8 H Lymph % (Auto) 13.2 L Laurel % (Auto) 5.0 Eos % (Auto) 2.3 Baso % (Auto) 0.5 Absolute Neuts (auto) 6.9 Absolute Lymphs (auto) 1.16 Nucleated RBC % 0 Sodium 143 Potassium 3.2 L Chloride 116 H Carbon Dioxide 16.0 L Anion Gap 11 BUN 54 H Creatinine 6.01 H Estim Creat Clear Calc 6.05 Est GFR (MDRD) Af Amer 9 L Est GFR (MDRD) Non-Af 7 L BUN/Creatinine Ratio 9.0 L Glucose 66 L Calcium 10.4 H Total Bilirubin 0.40 AST 15 ALT 17 Alkaline Phosphatase 124 H Total Protein 7.3 Albumin 3.6 Globulin 3.7 Albumin/Globulin Ratio 1.0 POC Glucose 58 L 05/30/21 18:15 WBC RBC Hgb Hct MCV MCH MCHC RDW Std Deviation RDW Coeff of Ritchie Plt Count MPV Immature Gran % (Auto) Neut % (Auto) Lymph % (Auto) Laurel % (Auto) Eos % (Auto) Baso % (Auto) Absolute Neuts (auto) Absolute Lymphs (auto) Nucleated RBC % Sodium Potassium Chloride Carbon Dioxide Anion Gap BUN Creatinine Estim Creat Clear Calc Est GFR (MDRD) Af Amer Est GFR (MDRD) Non-Af BUN/Creatinine Ratio Glucose Calcium Total Bilirubin AST ALT Alkaline Phosphatase Total Protein Albumin Globulin Albumin/Globulin Ratio POC Glucose 108 Discharge Plan Triage Chief Complaint: General Illness ED Provider: Talib Jacobs Dx/Rx/DC Orders Clinical Impression: Acute on chronic renal insufficiency, Acute kidney injury, History of diabetes mellitus, Diabetic hypoglycemia Prescriptions: No Action furosemide 40 mg tablet 40 mg PO DAILY RF: 0 levothyroxine 100 mcg tablet 100 mcg PO DAILY RF: 0 glimepiride 2 MG tablet 4 mg PO BID RF: 0 biotin 1 MG tablet 1,000 mg PO DAILY RF: 0 amlodipine 10 MG tablet 10 mg PO DAILY RF: 0 allopurinol 100 MG tablet 100 mg PO DAILY RF: 0 losartan 50 mg Tablet 50 mg PO BID RF: 0 rosuvastatin [Crestor] 40 mg Tablet 40 mg PO QHS RF: 0 levetiracetam 500 MG tablet 250 mg PO BID RF: 0 atenolol 50 MG tablet 50 mg PO DAILY RF: 0 insulin glargine 100 UNITS/ML insulin pen 40 units SQ QHS RF: 0 apixaban 2.5 MG tablet 2.5 mg PO DAILY RF: 0 tramadol 50 mg Tablet 50 mg PO BID PRN (Reason: Pain) RF: 0 Primary Care Provider: Keo Rondon Referrals: Keo Rondon MD [Primary Care Provider] - Disposition Disposition: Acute Care Hospital [facility]
[2021-05-30 16:46] LABS: Absolute Lymphocyte Count 1.16 X10^3/uL (0.83-4.51); Absolute Neutrophil Count 6.9 X10^3/uL (2.0-7.7); Basophil# 0.04 X10^3/uL; Basophil% 0.5 % (0-1); Eosinophils% 2.3 % (0-5); Hemoglobin 11.1 g/dL (12.0-15.0); Lymphocyte # 1.16 X10^3/ul (0.83-4.51); Lymphocyte % 13.2 % (19-41); Mean Corp Hgb Conc 31.7 g/dL (32-36); Mean Corpuscular Hgb 31.6 pg (27.0-32.0); Mean Corpuscular Volume 99.7 fL (81-99); Mean Platelet Vol. 10.3 fl (6.2-12.0); Monocyte# 0.44 X10^3/uL; NRBC Flagged by Analyzer 0 % (0-5); Neutrophil % 78.8 % (47-70); Platelet Count 305 K/mm3 (150-450); RBC Distribution Width CV 13.2 % (11.6-14.6); RBC Distribution Width SD 48.7 fl (35.1-43.9); Red Blood Count 3.51 M/mm3 (4.2-5.4); White Blood Count 8.8 K/mm3 (4.4-11.0)
[2021-05-30 17:12] LABS: AST(SGOT) 15 U/L (15-37); Alanine Aminotransfer ALT/SGPT 17 U/L (13-56); Albumin, Serum 3.6 g/dL (3.2-5.0); Alkaline Phosphatase 124 U/L (45-117); Anion Gap 11 (5-15); BUN 54 mg/dL (7-18); Calcium,Total 10.4 mg/dL (8.5-10.1); Chloride 116 mmol/L (98-107); Creatinine, Serum 6.01 mg/dL (0.55-1.02); EST Glomerular Filtration Rate 7 mL/min (>60); Est Glom Filt Rate - Afr Amer 9 mL/min (>60); Estimated Creatinine Clearance 6.05 ml/min; Globulin 3.7 g/dL (2.2-4.2); Glucose 66 mg/dL (74-106); Potassium 3.2 mmol/L (3.5-5.1); Protein, Total 7.3 g/dL (6.4-8.2); Sodium Level 143 mmol/L (136-145)
[2021-05-30 18:21] LABS: Bedside Glucose 108 mg/dL (70-110)
[2021-05-30 18:48] VITALS: RESP 22
--- NOTE | 2021-05-30 19:29 | PCM.HP.STD ---
HPI - General General Date of Admission: 05/30/21 HPI Narrative KAMRON ORNELAS, is a 85 F with a significant history of end-stage renal disease who presents to the emergency department with weakness. Patient reports that her dog has been sick so she was holding the dog or day. She reports staggering while walking, slurry speech and presyncope. She called the paramedics. However she was unable to open the door because of weakness. So, paramedics broke into her house to the back of her house. She was found to be hypoglycemic and she was given glucagon by the paramedics. At the emergency department her blood glucose was initially low and she was given food to eat. At the time of history taking patient reported tremors that she thought was related to hypoglycemia. Recheck blood glucose at the ED was 217. Sometime ago patient had a dialysis fistula placed in. However she is not interested in having dialysis. She saw Dr. Valerie Mei at that time. Patient report that her current symptom is similar to when she was diagnosed with a seizure after Covid. Patient was started on Keppra at that time. Her in March 2021 and she has had poor appetite since. She also reports decrease in fluid intake. [facility] Medical History Ambulates with cane Cardiology follow-up encounter Easy bruising Excessive bleeding Former smoker Gout High cholesterol History of atrial fibrillation History of edema History of GI bleed History of renal disease History of stress test Insulin dependent diabetes mellitus Leg cramps Low iron Post-menopausal Seizures Thyroid disease TIA (transient ischemic attack) Wears glasses Home Medications glimepiride 4 mg PO BID 06/18/13 [History Last Taken 08/13/13 04:00] allopurinol 100 mg PO DAILY 06/25/20 [History Last Taken 06/24/20 09:00] amlodipine 10 mg PO DAILY 06/25/20 [History Last Taken Unknown] furosemide 40 mg tablet 40 mg PO DAILY 11/24/20 [History Last Taken Unknown] levothyroxine 100 mcg tablet 100 mcg PO DAILY tab 11/24/20 [History Last Taken Unknown] apixaban 2.5 mg PO DAILY 11/30/20 [History Last Taken Unknown] atenolol 50 mg PO DAILY 11/30/20 [History Last Taken Unknown] insulin glargine 40 units SQ QHS 11/30/20 [History Last Taken Unknown] levetiracetam 250 mg PO BID 11/30/20 [History Last Taken Unknown] losartan 50 mg PO BID 11/30/20 [History Last Taken Unknown] rosuvastatin [Crestor] 40 mg PO QHS 11/30/20 [History Last Taken Unknown] tramadol 50 mg PO BID PRN 11/30/20 [History Last Taken Unknown] Allergy/AdvReac Type Severity Reaction Status Date / Time COVID-19 vaccine, mRNA, AdvReac Severe seizure Verified 05/30/21 15:59 [id number], L and new Afib oxycodone [From Percocet] AdvReac Other Verified 05/30/21 15:59 Family History Mother Heart disease Sister Diabetes Son Heart disease Myocardial infarction Surgical History History of arteriovenostomy for renal dialysis History of back surgery History of cardiac catheterization History of cataract extraction History of cholecystectomy History of colonoscopy (~2008) History of esophagogastroduodenoscopy (EGD) History of hysterectomy History of squamous cell carcinoma excision History of tonsillectomy Social History Smoking Status: Former smoker ROS ROS Narrative Constitutional: Reports poor appetite. Denies fever, chills, fatigue, and change in weight Eyes: Denies blurry vision, change in eye color, change in vision, discharge from eye(s), double vision, erythema, eye pain, loss of vision or other HEENT: Denies abnormal hearing, dysphagia, ear pain, epistaxis, headache(s), hearing loss, nasal congestion, nasal discharge, post nasal drip, sinus pressure, sore throat or other Cardiovascular: Denies chest pain or palpitations. Denies dyspnea on exertion, orthopnea and paroxysmal nocturnal dyspnea Respiratory/Chest: Denies cough, excessive phlegm production, shortness of breath with exertion and wheezing Gastrointestinal: Denies abdominal pain, coffee ground emesis, constipation, diarrhea, dyspepsia, hematemesis, hematochezia, loose stools, melena, nausea, vomiting or other Genitourinary: She reports decreased urine output. Denies burning urination. Musculoskeletal: Denies arthralgias, back pain, joint pain, joint stiffness, joint swelling, myalgias, neck pain or other Neurologic: Reports slurred speech, abnormal gait and presyncope. Psychiatric: Denies anxiety, depression, homicidal ideation, suicidal ideation or other Endocrinology: Denies change in body appearance, cold intolerance, excessive sweating, heat intolerance, polydipsia, polyuria or other Hematologic/Lymphatic: Denies anemia, easy bleeding, easy bruising, lymphadenopathy or other Integumentary: Denies rashes Allergic/Immunologic: Denies rhinitis, hives, eczema, asthma or other Vital Signs Vital Signs Vital Signs: 05/30/21 15:59 05/30/21 18:48 Temperature 98.5 F Temperature Source Temporal Pulse Rate 72 Respiratory Rate 16 22 H Blood Pressure 144/60 H Blood Pressure Mean 88 Pulse Ox 100 Oxygen Delivery Method Room Air Weight Weight: 65.771 kg Body Mass Index (BMI) 24.1 Physical Exam Narrative Physical exam: General: Well-nourished, well-developed. Head: Normocephalic, atraumatic, no tenderness Eyes: PERRLA, EOMI ENT, no trauma, moist mucous membranes, no rhinorrhea Neck: Nontender, full range of motion, no spinal tenderness, deformities, step-off CVS: Regular rate and rhythm. S1-S2 present. No murmur, gallop or rub. Respiratory : clear to auscultation bilaterally, chest wall nontender, no wheezing Abdomen: Soft, nontender, nondistended, normal bowel sounds, no masses : Deferred Back: Nontender, no CVA tenderness, no midline spinal tenderness, deformities, step-offs Extremities: Dialysis catheter in left arm with bruit and thrill. Nontender full range of motion, no trauma Skin: Normal color, no trauma, abrasions Neuro: Alert, oriented, cranial nerves II through XII grossly intact. Psychiatry: Normal mood. Normal affect. Not depressed. Not anxious. Results Lab / Micro Data Result Diagrams: 05/30/21 16:32 05/30/21 16:32 Labs: Laboratory Results - last 24 hr 05/30/21 16:12: POC Glucose 58 L 05/30/21 16:32: WBC 8.8, RBC 3.51 L, Hgb 11.1 L, Hct 35.0 L, MCV 99.7 H, MCH 31.6, MCHC 31.7 L, RDW Std Deviation 48.7 H, RDW Coeff of Ritchie 13.2, Plt Count 305, MPV 10.3, Immature Gran % (Auto) 0.200, Neut % (Auto) 78.8 H, Lymph % (Auto) 13.2 L, Schleicher % (Auto) 5.0, Eos % (Auto) 2.3, Baso % (Auto) 0.5, Absolute Neuts (auto) 6.9, Absolute Lymphs (auto) 1.16, Nucleated RBC % 0 05/30/21 16:32: Sodium 143, Potassium 3.2 L, Chloride 116 H, Carbon Dioxide 16.0 L, Anion Gap 11, BUN 54 H, Creatinine 6.01 H, Estim Creat Clear Calc 6.05, Est GFR (MDRD) Af Amer 9 L, Est GFR (MDRD) Non-Af 7 L, BUN/Creatinine Ratio 9.0 L, Glucose 66 L, Calcium 10.4 H, Total Bilirubin 0.40, AST 15, ALT 17, Alkaline Phosphatase 124 H, Total Protein 7.3, Albumin 3.6, Globulin 3.7, Albumin/Globulin Ratio 1.0 05/30/21 18:15: POC Glucose 108 Assessment & Plan Assessment/Plan (1) Diabetic hypoglycemia: (2) Acute kidney injury: PLAN: RISHI on end-stage renal disease ESRD Likely from Diabetic nephropathy Her creatinine on presentation was 6.01. Baseline creatinine is between 3.5-4.3 Review of labs showed non-anion gap metabolic acidosis with bicarb of 16. BUN of 54. BUN over creatinine is 9. Ultrasound of bladder and kidneys ordered. Normal saline bolus ordered. We will continue patient on gentle IV hydration. Hold nephrotoxins. Hold home Lasix. Hold home losartan. Urine electrolytes ordered. Patient saw Dr. Valerie Mei in the past. However, she wants to see a different unit leader at this time. Patient does not want dialysis. [place] unit leader consult placed. Diabetes mellitus with hypoglycemia Hold all home insulin regimen. Of note patient is on insulin and glimepiride at home. Check Accu-Cheks. Hypokalemia Potassium presentation was 3.2. Review of kidney disease only 10 mEq of potassium will be ordered at this time. Trend BMP. Hypertension Blood pressure is stable in regard to her age. Amlodipine and atenolol held. Losartan and Lasix held secondary to RISHI. As needed hydralazine ordered. Trend blood pressure and adjust blood pressure medications. History of A. fib Stable Eliquis continued. Hypothyroidism Synthroid continued Seizure disorder Keppra continued Gout Allopurinol continued. Hyperlipidemia Lipitor continued DVT prophylaxis: Home Eliquis continued. Charges/Coding Visit Charges Inpatient E&M: 42776 Init Hosp L3
[2021-05-30] MEDS: 0.9% Normal Saline 1,000 ML 999 ML IV (19:36)
[2021-05-30 19:38] VITALS: BP 139/55; PULSE 84; RESP 15; TEMP 36.9; O2SAT 98
[2021-05-30 19:56] LABS: Bedside Glucose 217 mg/dL (70-110)
[2021-05-30 19:57] VITALS: BMI 23.8
[2021-05-30 20:08] LABS: Urea Nitrogen, Urine 480 mg/dL (NO RANGE EST.); Urine Sodium 55 mmol/L (Not Establ.)
[2021-05-30 20:13] LABS: Osmolality, Urine 377 mOsm/KG
[2021-05-30 20:34] VITALS: BP 135/59; PULSE 84; RESP 18; TEMP 37; O2SAT 99
[2021-05-31] MEDS: 0.9% Normal Saline 1,000 ML 75 ML IV (00:17)
[2021-05-31] MEDS: Potassium Chloride Oral Tablet 10 MEQ PO (00:18)
--- NOTE | 2021-05-31 00:59 | PCS.PANDOC ---
PANDEMIC DOCUMENTATION INITIATED: Date: 01/18/2021 Time: 189905/31/21 0100
[2021-05-31 05:30] VITALS: BP 144/66; PULSE 78; RESP 18; TEMP 37.1; O2SAT 96
[2021-05-31] MEDS: Levothyroxine 100 MCG Tablet PO (05:38)
[2021-05-31 05:56] LABS: Absolute Lymphocyte Count 1.21 X10^3/uL (0.83-4.51); Absolute Neutrophil Count 4.8 X10^3/uL (2.0-7.7); Basophil# 0.05 X10^3/uL; Basophil% 0.7 % (0-1); Eosinophil# 0.16 X10^3/uL; Eosinophils% 2.3 % (0-5); Hematocrit 27.7 % (37-47); Hemoglobin 8.8 g/dL (12.0-15.0); Lymphocyte # 1.21 X10^3/ul (0.83-4.51); Lymphocyte % 17.5 % (19-41); Mean Corp Hgb Conc 31.8 g/dL (32-36); Mean Corpuscular Hgb 31.1 pg (27.0-32.0); Mean Corpuscular Volume 97.9 fL (81-99); Mean Platelet Vol. 10.1 fl (6.2-12.0); Monocyte# 0.63 X10^3/uL; Monocyte% 9.1 % (0-10); NRBC Flagged by Analyzer 0 % (0-5); Neutrophil # 4.83 X10^3/uL (2.7-7.7); Neutrophil % 70.1 % (47-70); Platelet Count 242 K/mm3 (150-450); RBC Distribution Width CV 13.3 % (11.6-14.6); RBC Distribution Width SD 47.4 fl (35.1-43.9); Red Blood Count 2.83 M/mm3 (4.2-5.4); White Blood Count 6.9 K/mm3 (4.4-11.0)
[2021-05-31 06:21] LABS: Anion Gap 7 (5-15); BUN 50 mg/dL (7-18); BUN/Creat Ratio 9.1 RATIO (10-20); Calcium,Total 9.2 mg/dL (8.5-10.1); Chloride 121 mmol/L (98-107); Creatinine, Serum 5.51 mg/dL (0.55-1.02); EST Glomerular Filtration Rate 8 mL/min (>60); Est Glom Filt Rate - Afr Amer 9 mL/min (>60); Estimated Creatinine Clearance 6.59 ml/min; Glucose 201 mg/dL (74-106); Potassium 3.2 mmol/L (3.5-5.1); Sodium Level 144 mmol/L (136-145)
--- NOTE | 2021-05-31 07:00 | US_ITS ---
STUDY: RENAL ULTRASOUND - COMPLETE REASON FOR EXAM: Female, 85 years old. giselle TECHNIQUE: Ultrasound evaluation of the kidneys was performed with real-time and static gzuman-scale imaging. COMPARISON: 01.13.15. FINDINGS: RIGHT KIDNEY: Normal location of the right kidney, which is normal in size. The right kidney measures 9.2x3.9 cm. Echogenic. The renal cortex measures 1.1 cm. There is 11 x 10mm right renal cyst. There are no right renal calculi. Prominent calyces. DISTAL RIGHT URETER: There is non-visualization of the distal right ureter. There is no demonstrated right ureterovesical junction calculus. There is a visualized right ureteral jet. LEFT KIDNEY: Normal location of the left kidney, which is normal in size. The left kidney measures 8.8x4.3 cm. Echogenic. The renal cortex measures .9 cm. There is no left renal mass or cyst. There are no left renal calculi. Prominent calyces. DISTAL LEFT URETER: There is non-visualization of the distal left ureter. There is no demonstrated left ureterovesical junction calculus. There is a visualized left ureteral jet. AORTA: There is atherosclerotic plaque formation of the abdominal aorta. I.V.C.: The IVC is obscured. BLADDER: The distended urinary bladder has a volume of 99 ml. There is a normal wall thickness of the distended urinary bladder. There is no demonstrated mass within the urinary bladder. There are no demonstrated bladder calculi. US/Kidney and Bladder IMPRESSION: Echogenic kidneys are suggestive of chronic medical renal disease. Electronically Signed: Markel Fisher MD at 14:55 EST , Service support ,
--- NOTE | 2021-05-31 07:40 | PCM.PN.HOSP ---
Subjective Subjective Patient is an 85-year-old lady with underlying history of end-stage renal disease secondary to diabetic nephropathy for which she is declined dialysis presented with progressive generalized weakness. Patient was found to be hypoglycemic as well as with acute kidney injury superimposed on her chronic kidney disease admitted to regular nursing floor with consultation placed to nephrology Objective Data Objective Data Vital Signs: Vital Signs Temp Pulse Resp BP Pulse Ox 98.7 F 78 18 144/66 H 96 05/31/21 05:30 05/31/21 05:30 05/31/21 05:30 05/31/21 05:30 05/31/21 05:30 Oxygen Delivery Method Room Air Weight: 65.1 kg Body Mass Index (BMI) 23.8 Intake & Output: Intake and Output for Last 24 Hours 05/29/21 05/30/21 05/31/21 23:59 23:59 23:59 Intake Total 1000 / 1250 1050 / 1050 Balance 1000 / 1250 1050 / 1050 Lab / Micro Data Result Diagrams: 05/31/21 05:20 05/31/21 05:20 Labs: Laboratory Results - last 24 hr 05/30/21 16:12: POC Glucose 58 L 05/30/21 16:32: WBC 8.8, RBC 3.51 L, Hgb 11.1 L, Hct 35.0 L, MCV 99.7 H, MCH 31.6, MCHC 31.7 L, RDW Std Deviation 48.7 H, RDW Coeff of Ritchie 13.2, Plt Count 305, MPV 10.3, Immature Gran % (Auto) 0.200, Neut % (Auto) 78.8 H, Lymph % (Auto) 13.2 L, [place] % (Auto) 5.0, Eos % (Auto) 2.3, Baso % (Auto) 0.5, Absolute Neuts (auto) 6.9, Absolute Lymphs (auto) 1.16, Nucleated RBC % 0 05/30/21 16:32: Sodium 143, Potassium 3.2 L, Chloride 116 H, Carbon Dioxide 16.0 L, Anion Gap 11, BUN 54 H, Creatinine 6.01 H, Estim Creat Clear Calc 6.05, Est GFR (MDRD) Af Amer 9 L, Est GFR (MDRD) Non-Af 7 L, BUN/Creatinine Ratio 9.0 L, Glucose 66 L, Calcium 10.4 H, Total Bilirubin 0.40, AST 15, ALT 17, Alkaline Phosphatase 124 H, Total Protein 7.3, Albumin 3.6, Globulin 3.7, Albumin/Globulin Ratio 1.0 05/30/21 18:15: POC Glucose 108 05/30/21 19:42: POC Glucose 217 H 05/30/21 19:50: Urine Osmolality 377, Ur Random Sodium 55, Urine Creatinine 122.00, Urine Urea Nitrogen 480 05/31/21 05:20: WBC 6.9, RBC 2.83 L, Hgb 8.8 L, Hct 27.7 L, MCV 97.9, MCH 31.1, MCHC 31.8 L, RDW Std Deviation 47.4 H, RDW Coeff of Ritchie 13.3, Plt Count 242, MPV 10.1, Immature Gran % (Auto) 0.300, Neut % (Auto) 70.1 H, Lymph % (Auto) 17.5 L, [place] % (Auto) 9.1, Eos % (Auto) 2.3, Baso % (Auto) 0.7, Absolute Neuts (auto) 4.8, Absolute Lymphs (auto) 1.21, Nucleated RBC % 0 05/31/21 05:20: Sodium 144, Potassium 3.2 L, Chloride 121 H, Carbon Dioxide 16.0 L, Anion Gap 7, BUN 50 H, Creatinine 5.51 H, Estim Creat Clear Calc 6.59, Est GFR (MDRD) Af Amer 9 L, Est GFR (MDRD) Non-Af 8 L, BUN/Creatinine Ratio 9.1 L, Glucose 201 H, Calcium 9.2 Physical Exam Narrative GENERAL: cooperative HEENT: Atraumatic; EYES; Anicteric, Normal Conjunctiva NECK; supple, normal thyroid, RESPIRATORY: Diminished to auscultation CARDIOVASCULAR: Regular S1 S2, GI: soft, normoactive bowel sounds, : No Renal angle tenderness; EXTREMITIES: No edema, no clubbing, MUSCULOSKELETAL: no muscle waisting NEURO: Awake; no lateralizing signs. SKIN: No Rash PSYCH; Flat affect Assessment & Plan Assessment/Plan (1) Diabetic hypoglycemia: (2) Acute kidney injury: PLAN: Patient is an 85-year-old lady with underlying history of end-stage renal disease secondary to diabetic nephropathy for which she is declined dialysis presented with progressive generalized weakness. Patient was found to be hypoglycemic as well as with acute kidney injury superimposed on her chronic kidney disease admitted to regular nursing floor with consultation placed to nephrology 1. Acute kidney injury ?Patient baseline creatinine 3.45. Creatinine on admission was 6.01 admitted to regular nursing floor being hydrated with consultation placed to nephrology 2. End-stage renal disease ?Secondary to diabetic nephropathy patient had apparently declined dialysis given her advanced age 3. Diabetes mellitus type 2 ?With complications including end-stage renal disease as well as hypoglycemia. Patient is on glimepiride at home this was discontinued in view of her impaired kidney function please on Accu-Cheks before meals and at bedtime with sliding scale coverage 4. Hypokalemia -Corrected per protocol 5. Hypertension - Blood pressure controlled, home medications continued with dose adjustment as needed 6. Paroxysmal A. fib ?Rate controlled on systemic anticoagulation with Eliquis 7. Hypothyroidism - Patient is on levothyroxine home dose continued 8. Seizure disorder ?Patient is on Keppra 9. Dyslipidemia -Patient is on statin therapy, continued at home dose 10. Gout ?Patient is on allopurinol 11. DVT prophylaxis ?Patient is on Eliquis Advance planning; did discuss with the patient regarding advanced directives as well as CODE STATUS. Did explain the various scenarios involved ( FULL CODE, DNR CCA, DNR CCA with no intubation, and DNR CC and what each meant) patient elected to be DNR CCA no intubation. Order was placed. Time spent on discussion 18 minutes. Charges/Coding Visit Charges Inpatient E&M: 08559 Subs Hosp L3 Procedures Hospitalists Procedures: 00258 Advncd Care Plan 30 Min
[2021-05-31 08:49] VITALS: BP 140/62; PULSE 74; RESP 16; TEMP 37; O2SAT 98
[2021-05-31] MEDS: levETIRAcetam 250 MG Tablet PO ×2 (08:54→21:57)
[2021-05-31] MEDS: Allopurinol 100 MG Tablet PO (08:54)
[2021-05-31] MEDS: APIXABAN 2.5 MG TABLET PO (08:54)
[2021-05-31] MEDS: amLODIPine 10 MG Tablet PO (08:54)
[2021-05-31] MEDS: Atenolol 50 MG Tablet PO (08:55)
[2021-05-31 13:31] LABS: Bedside Glucose 171 mg/dL (70-110)
--- NOTE | 2021-05-31 15:20 | CASEMGMT ---
RN CM EMPLOYMENT COUNSELOR CM to room to meet with patient for initial transition planning/care coordination assessment. RN ZORAIDA introduced self and role at [facility]. Pt voices understanding and consents to assessment at this time. Pt resting in bed in no distress at this time. Pt is A/O at this time and answers all questions appropriately. Care providers, pharmacy, and demographics verified/updated at this time. PCP: Dr Rondon Specialists: Dr Luke-pain mgmt. Used to see Dr Mei--nephrology, about 6 yrs ago--does not wish to go back to her. Preferred Pharmacy: [facility] Insurance: [employer] Prescription Benefit: Yes Living Will/HPOA: Pt does not currently have LW/HCPOA and declines info at this time. LNOK: just in Mar. Son, Oli Garza--lives in [place]. Has nieces and nephews in [place], [place]. Living Arrangements: Lives alone in mobile home w/3 steps to enter. Independent @ home but has been weak. Gets groceries delivered. Has neighbors that call and check on her a few times a week. Transportation: Pt states drives self and states no transportation concerns at this time. Friend will take her home @ d/c. DME: States has the following DME: functioning glucometer w/supplies. States gets insulin thru [employer] mail-order but is almost out of Pen needles. Her used to go to [facility] to get them, but she would like to get them from [facility]. Will need script for Pen needles for Lantus Solostar Pen. Also has shower chair, RTS, cane, rollator. Pt states no need for further DME at this time. HHC/SNF: No hx of either. Pt states she may want HHC, but she is not sure. Provided w/list of local HHC agencies for pt to review. She states wants to think about it. Pt wishes to return home and states has no concerns with going home at time of discharge. CM to follow for any discharge planning/needs. Pt voices no further concerns/needs at this time. Advised pt to ask for CM if any further questions/concerns/needs arise. Voices understanding. PLAN: Home. May want HHC. RN CM to follow Will need script for Pen needles for Lantus Solostar pen. Misti MARLOW RN, CM
--- NOTE | 2021-05-31 15:22 | CON.PCM.RE_ITS ---
Assessment & Plan Assessment/Plan (1) Acute kidney injury: PLAN: She has known history of CKD stage IV/V. Baseline creatinine was around mid threes. Presented with a creatinine of more than 6. Somewhat better today. Renal ultrasound without any hydronephrosis. She has known history of advanced CKD for a long time. Significant weight loss. No other uremic symptoms such as nausea, vomiting, taste changes, pruritus, lower extremity edema. Has a left arm AV fistula which was placed almost 6 years ago and has d ecent bruit. Discussed about various options. She declines to do dialysis irrespective of medical complications. Apparently several of her friends were on dialysis and did not do well. She is 85 years and I think this is a fair decision. Most likely RISHI is related to volume depletion. HPI Consult Data Date of Consult: 05/31/21 HPI Narrative HPI Narrative: KAMRON ORNELAS, is a 85 F who presents to the hospital with hypoglycemia. Nephrology consulted for renal failure. She has known history of CKD stage IV/V. She used to see Dr. Mei before. Baseline creatinine is around 3.5. She had a left arm AV fistula placed almost 6 years ago. Has not been used yet. CKD is presumably diabetes related. Apparently she lost her in March. Since then she has had poor appetite, decreased energy levels. Lost about 15 pounds since March. No other uremic symptoms such as nausea, vomiting, itching, lower extremity edema. [facility] Medical History Ambulates with cane Cardiology follow-up encounter Easy bruising Excessive bleeding Former smoker Gout High cholesterol History of atrial fibrillation History of edema History of GI bleed History of renal disease History of stress test Insulin dependent diabetes mellitus Leg cramps Low iron Post-menopausal Seizures Thyroid disease TIA (transient ischemic attack) Wears glasses Home Medications glimepiride 4 mg PO BID 06/18/13 [History Last Taken 08/13/13 04:00] allopurinol 100 mg PO DAILY 06/25/20 [History Last Taken 06/24/20 09:00] amlodipine 10 mg PO DAILY 06/25/20 [History Last Taken Unknown] furosemide 40 mg tablet 40 mg PO DAILY 11/24/20 [History Last Taken Unknown] levothyroxine 100 mcg tablet 100 mcg PO DAILY tab 11/24/20 [History Last Taken Unknown] apixaban 2.5 mg PO DAILY 11/30/20 [History Last Taken Unknown] atenolol 50 mg PO DAILY 11/30/20 [History Last Taken Unknown] insulin glargine 40 units SQ QHS 11/30/20 [History Last Taken Unknown] levetiracetam 250 mg PO BID 11/30/20 [History Last Taken Unknown] losartan 50 mg PO BID 11/30/20 [History Last Taken Unknown] rosuvastatin [Crestor] 40 mg PO QHS 11/30/20 [History Last Taken Unknown] tramadol 50 mg PO BID PRN 11/30/20 [History Last Taken Unknown] Allergy/AdvReac Type Severity Reaction Status Date / Time COVID-19 vaccine, mRNA, AdvReac Severe seizure Verified 05/30/21 15:59 [id number], L and new Afib oxycodone [From Percocet] AdvReac Other Verified 05/30/21 15:59 Family History Mother Heart disease Sister Diabetes Son Heart disease Myocardial infarction Surgical History History of arteriovenostomy for renal dialysis History of back surgery History of cardiac catheterization History of cataract extraction History of cholecystectomy History of colonoscopy (~2008) History of esophagogastroduodenoscopy (EGD) History of hysterectomy History of squamous cell carcinoma excision History of tonsillectomy Social History Smoking Status: Former smoker ROS ROS Narrative negative except above Physical Exam Narrative Alert awake oriented x 3 no obvious distress no pallor no icterus no JVD s1s2 no murmurs lungs clear abdomen soft no organomegaly no edema no cyanosis Lab / Micro Data Result Diagrams: 05/31/21 05:20 05/31/21 05:20 Labs: Laboratory Results - last 24 hr 05/30/21 16:12: POC Glucose 58 L 05/30/21 16:32: WBC 8.8, RBC 3.51 L, Hgb 11.1 L, Hct 35.0 L, MCV 99.7 H, MCH 31.6, MCHC 31.7 L, RDW Std Deviation 48.7 H, RDW Coeff of Ritchie 13.2, Plt Count 305, MPV 10.3, Immature Gran % (Auto) 0.200, Neut % (Auto) 78.8 H, Lymph % (Auto) 13.2 L, [place] % (Auto) 5.0, Eos % (Auto) 2.3, Baso % (Auto) 0.5, Absolute Neuts (auto) 6.9, Absolute Lymphs (auto) 1.16, Nucleated RBC % 0 05/30/21 16:32: Sodium 143, Potassium 3.2 L, Chloride 116 H, Carbon Dioxide 16.0 L, Anion Gap 11, BUN 54 H, Creatinine 6.01 H, Estim Creat Clear Calc 6.05, Est GFR (MDRD) Af Amer 9 L, Est GFR (MDRD) Non-Af 7 L, BUN/Creatinine Ratio 9.0 L, Glucose 66 L, Calcium 10.4 H, Total Bilirubin 0.40, AST 15, ALT 17, Alkaline Phosphatase 124 H, Total Protein 7.3, Albumin 3.6, Globulin 3.7, Albumin/Globulin Ratio 1.0 05/30/21 18:15: POC Glucose 108 05/30/21 19:42: POC Glucose 217 H 05/30/21 19:50: Urine Osmolality 377, Ur Random Sodium 55, Urine Creatinine 122.00, Urine Urea Nitrogen 480 05/31/21 05:20: WBC 6.9, RBC 2.83 L, Hgb 8.8 L, Hct 27.7 L, MCV 97.9, MCH 31.1, MCHC 31.8 L, RDW Std Deviation 47.4 H, RDW Coeff of Ritchie 13.3, Plt Count 242, MPV 10.1, Immature Gran % (Auto) 0.300, Neut % (Auto) 70.1 H, Lymph % (Auto) 17.5 L, [place] % (Auto) 9.1, Eos % (Auto) 2.3, Baso % (Auto) 0.7, Absolute Neuts (auto) 4.8, Absolute Lymphs (auto) 1.21, Nucleated RBC % 0 05/31/21 05:20: Sodium 144, Potassium 3.2 L, Chloride 121 H, Carbon Dioxide 16.0 L, Anion Gap 7, BUN 50 H, Creatinine 5.51 H, Estim Creat Clear Calc 6.59, Est GFR (MDRD) Af Amer 9 L, Est GFR (MDRD) Non-Af 8 L, BUN/Creatinine Ratio 9.1 L, Glucose 201 H, Calcium 9.2 05/31/21 13:14: POC Glucose 171 H Radiology Impression Renal Ultrasound 05/31/21 07:00 IMPRESSION: Echogenic kidneys are suggestive of chronic medical renal disease. Electronically Signed: Markel Fisher MD at 14:55 EST , Service support ,
[2021-05-31 16:25] LABS: Anion Gap 9 (5-15); BUN 48 mg/dL (7-18); Calcium,Total 9.5 mg/dL (8.5-10.1); Chloride 119 mmol/L (98-107); Creatinine, Serum 5.31 mg/dL (0.55-1.02); EST Glomerular Filtration Rate 8 mL/min (>60); Est Glom Filt Rate - Afr Amer 10 mL/min (>60); Estimated Creatinine Clearance 6.84 ml/min; Glucose 161 mg/dL (74-106); Potassium 3.2 mmol/L (3.5-5.1); Sodium Level 144 mmol/L (136-145)
[2021-05-31 16:30] VITALS: BP 146/62; PULSE 70; RESP 18; TEMP 36.9; O2SAT 98
[2021-05-31 21:47] VITALS: BP 135/60; PULSE 73; RESP 20; TEMP 36.6; O2SAT 94
[2021-05-31] MEDS: Atorvastatin Calcium 80 MG Tablet PO (21:57)
[2021-05-31 22:11] LABS: Bedside Glucose 225 mg/dL (70-110)
[2021-05-31] MEDS: Insulin Lispro 100 UNIT/ML INSULN.PEN SC (22:32)
[2021-06-01 03:37] VITALS: BP 126/60; PULSE 69; RESP 16; TEMP 36.4; O2SAT 96
[2021-06-01 05:42] LABS: Absolute Lymphocyte Count 1.24 X10^3/uL (0.83-4.51); Absolute Neutrophil Count 4.9 X10^3/uL (2.0-7.7); Basophil# 0.04 X10^3/uL; Basophil% 0.6 % (0-1); Eosinophil# 0.41 X10^3/uL; Eosinophils% 5.7 % (0-5); Hematocrit 27.2 % (37-47); Hemoglobin 8.6 g/dL (12.0-15.0); Lymphocyte # 1.24 X10^3/ul (0.83-4.51); Lymphocyte % 17.2 % (19-41); Mean Corp Hgb Conc 31.6 g/dL (32-36); Mean Corpuscular Hgb 31.2 pg (27.0-32.0); Mean Corpuscular Volume 98.6 fL (81-99); Mean Platelet Vol. 9.8 fl (6.2-12.0); Monocyte# 0.64 X10^3/uL; Monocyte% 8.9 % (0-10); NRBC Flagged by Analyzer 0 % (0-5); Neutrophil # 4.88 X10^3/uL (2.7-7.7); Neutrophil % 67.5 % (47-70); Platelet Count 228 K/mm3 (150-450); RBC Distribution Width CV 13.2 % (11.6-14.6); RBC Distribution Width SD 47.5 fl (35.1-43.9); Red Blood Count 2.76 M/mm3 (4.2-5.4); White Blood Count 7.2 K/mm3 (4.4-11.0)
[2021-06-01 05:59] LABS: Anion Gap 7 (5-15); BUN 43 mg/dL (7-18); BUN/Creat Ratio 9.1 RATIO (10-20); Calcium,Total 8.7 mg/dL (8.5-10.1); Chloride 120 mmol/L (98-107); Creatinine, Serum 4.73 mg/dL (0.55-1.02); EST Glomerular Filtration Rate 9 mL/min (>60); Est Glom Filt Rate - Afr Amer 11 mL/min (>60); Estimated Creatinine Clearance 7.68 ml/min; Glucose 156 mg/dL (74-106); Potassium 3.4 mmol/L (3.5-5.1); Sodium Level 143 mmol/L (136-145)
[2021-06-01] MEDS: Insulin Lispro 100 UNIT/ML INSULN.PEN SC ×2 (06:37→12:19)
[2021-06-01] MEDS: Levothyroxine 100 MCG Tablet PO (06:37)
[2021-06-01 07:16] VITALS: O2SAT 95
[2021-06-01 07:20] LABS: Bedside Glucose 153 mg/dL (70-110)
--- NOTE | 2021-06-01 07:33 | PCM.PN.HOSP ---
Subjective Subjective Patient seen slight improvement in kidney function. Was seen in consultation by nephrology the day prior recommended for continuation of current therapy. Objective Data Objective Data Vital Signs: Vital Signs Temp Pulse Resp BP Pulse Ox 97.6 F L 69 16 126/60 H 95 06/01/21 03:37 06/01/21 03:37 06/01/21 03:37 06/01/21 03:37 06/01/21 07:16 Oxygen Flow Rate (L/min) 96 Oxygen Delivery Method Room Air Weight: 65.1 kg Body Mass Index (BMI) 23.8 Intake & Output: Intake and Output for Last 24 Hours 05/30/21 05/31/21 06/01/21 23:59 23:59 23:59 Intake Total 1000 / 1250 4426.25 / 4726.25 350 / 350 Balance 1000 / 1250 4426.25 / 4726.25 350 / 350 Lab / Micro Data Result Diagrams: 06/01/21 04:55 06/01/21 04:55 Labs: Laboratory Results - last 24 hr 05/31/21 13:14: POC Glucose 171 H 05/31/21 15:50: Sodium 144, Potassium 3.2 L, Chloride 119 H, Carbon Dioxide 16.0 L, Anion Gap 9, BUN 48 H, Creatinine 5.31 H, Estim Creat Clear Calc 6.84, Est GFR (MDRD) Af Amer 10 L, Est GFR (MDRD) Non-Af 8 L, BUN/Creatinine Ratio 9.0 L, Glucose 161 H, Calcium 9.5 05/31/21 22:00: POC Glucose 225 H 06/01/21 04:55: WBC 7.2, RBC 2.76 L, Hgb 8.6 L, Hct 27.2 L, MCV 98.6, MCH 31.2, MCHC 31.6 L, RDW Std Deviation 47.5 H, RDW Coeff of Ritchie 13.2, Plt Count 228, MPV 9.8, Immature Gran % (Auto) 0.100, Neut % (Auto) 67.5, Lymph % (Auto) 17.2 L, [place] % (Auto) 8.9, Eos % (Auto) 5.7 H, Baso % (Auto) 0.6, Absolute Neuts (auto) 4.9, Absolute Lymphs (auto) 1.24, Nucleated RBC % 0 06/01/21 04:55: Sodium 143, Potassium 3.4 L, Chloride 120 H, Carbon Dioxide 16.0 L, Anion Gap 7, BUN 43 H, Creatinine 4.73 H, Estim Creat Clear Calc 7.68, Est GFR (MDRD) Af Amer 11 L, Est GFR (MDRD) Non-Af 9 L, BUN/Creatinine Ratio 9.1 L, Glucose 156 H, Calcium 8.7, Magnesium 2.0 06/01/21 06:36: POC Glucose 153 H Radiography Diagnostic Testing: Radiology Impression Renal Ultrasound 05/31/21 07:00 IMPRESSION: Echogenic kidneys are suggestive of chronic medical renal disease. Electronically Signed: Markel Fisher MD at 14:55 EST , Service support , Physical Exam Narrative GENERAL: cooperative HEENT: Atraumatic; EYES; Anicteric, Normal Conjunctiva NECK; supple, normal thyroid, RESPIRATORY: Diminished to auscultation CARDIOVASCULAR: Regular S1 S2, GI: soft, normoactive bowel sounds, : No Renal angle tenderness; EXTREMITIES: No edema, no clubbing, MUSCULOSKELETAL: no muscle waisting NEURO: Awake; no lateralizing signs. SKIN: No Rash PSYCH; Flat affect Assessment & Plan Assessment/Plan (1) Diabetic hypoglycemia: (2) Acute kidney injury: PLAN: Patient is an 85-year-old lady with underlying history of end-stage renal disease secondary to diabetic nephropathy for which she is declined dialysis presented with progressive generalized weakness. Patient was found to be hypoglycemic as well as with acute kidney injury superimposed on her chronic kidney disease admitted to regular nursing floor with consultation placed to nephrology 1. Acute kidney injury ?Patient baseline creatinine 3.45. Creatinine on admission was 6.01 admitted to regular nursing floor being hydrated with consultation placed to nephrology - Patient seen slight improvement in kidney function. Was seen in consultation by nephrology the day prior recommended for continuation of current therapy. 2. End-stage renal disease ?Secondary to diabetic nephropathy patient had apparently declined dialysis given her advanced age 3. Diabetes mellitus type 2 ?With complications including end-stage renal disease as well as hypoglycemia. Patient is on glimepiride at home this was discontinued in view of her impaired kidney function please on Accu-Cheks before meals and at bedtime with sliding scale coverage 4. Hypokalemia -Corrected per protocol 5. Hypertension - Blood pressure controlled, home medications continued with dose adjustment as needed 6. Paroxysmal A. fib ?Rate controlled on systemic anticoagulation with Eliquis 7. Hypothyroidism - Patient is on levothyroxine home dose continued 8. Seizure disorder ?Patient is on Keppra 9. Dyslipidemia -Patient is on statin therapy, continued at home dose 10. Gout ?Patient is on allopurinol 11. DVT prophylaxis ?Patient is on Eliquis Charges/Coding Visit Charges Inpatient E&M: 25178 Subs Hosp L2
[2021-06-01] MEDS: Atenolol 50 MG Tablet PO (09:25)
[2021-06-01] MEDS: Allopurinol 100 MG Tablet PO (09:25)
[2021-06-01] MEDS: levETIRAcetam 250 MG Tablet PO (09:25)
[2021-06-01] MEDS: amLODIPine 10 MG Tablet PO (09:25)
[2021-06-01] MEDS: APIXABAN 2.5 MG TABLET PO (09:26)
[2021-06-01] MEDS: Potassium Chloride Oral Tablet 20 MEQ 40 MEQ PO (09:29)
[2021-06-01 09:30] VITALS: BP 133/62; PULSE 72; RESP 16; TEMP 36.6; O2SAT 98
--- NOTE | 2021-06-01 10:20 | PCM.DC.SUM ---
Providers Date of Admission: 05/30/21 Primary Care Physician: Dr. Keo Rondon MD Consultations 05/30/21 19:54 Consult: Nephrology Routine Consulting Provider: Yanet Graham Reason for Consult: RISHI on ckd EMERGENT Consult: No MD Notified: Yes Date Notified: 05/31/21 Time Notified: 08:11 Method of Notification: Answering Service Reason For Visit: RISHI Diagnosis Discharge Diagnosis (1) Diabetic hypoglycemia: Status: Acute Code(s): E11.649 - Type 2 diabetes mellitus with hypoglycemia without coma (2) Acute kidney injury: Status: Acute Code(s): N17.9 - Acute kidney failure, unspecified Medications at Discharge Home Medications allopurinol 100 mg PO DAILY 06/25/20 amlodipine 10 mg PO DAILY 06/25/20 levothyroxine 100 mcg tablet 100 mcg PO DAILY tab 11/24/20 apixaban 2.5 mg PO DAILY 11/30/20 atenolol 50 mg PO DAILY 11/30/20 levetiracetam 250 mg PO BID 11/30/20 rosuvastatin [Crestor] 40 mg PO QHS 11/30/20 acetaminophen [Tylenol] 650 mg PO Q6H PRN PRN #0 tab 06/01/21 insulin glargine 10 units SQ QHS #0 ml 06/01/21 Hospital Course Summary of Care Provided Minutes Spent on Discharge: 35 Hospital Course: almaz is an 85-year-old lady with underlying history of end-stage renal disease secondary to diabetic nephropathy for which she is declined dialysis presented with progressive generalized weakness. Patient was found to be hypoglycemic as well as with acute kidney injury superimposed on her chronic kidney disease admitted to regular nursing floor with consultation placed to nephrology 1. Acute kidney injury ?Patient baseline creatinine 3.45. Creatinine on admission was 6.01 admitted to regular nursing floor being hydrated with consultation placed to nephrology - Patient seen slight improvement in kidney function. Was seen in consultation by nephrology the day prior recommended for continuation of current therapy. 2. End-stage renal disease ?Secondary to diabetic nephropathy patient had apparently declined dialysis given her advanced age 3. Diabetes mellitus type 2 ?With complications including end-stage renal disease as well as hypoglycemia. Patient is on glimepiride at home this was discontinued in view of her impaired kidney function please on Accu-Cheks before meals and at bedtime with sliding scale coverage -Patient long-acting insulin dose was decreased from 40 units at bedtime to 10 units on discharge. Glimepiride discontinued 4. Hypokalemia -Corrected per protocol 5. Hypertension - Blood pressure controlled, home medications continued with dose adjustment as needed 6. Paroxysmal A. fib ?Rate controlled on systemic anticoagulation with Eliquis 7. Hypothyroidism - Patient is on levothyroxine home dose continued 8. Seizure disorder ?Patient is on Keppra 9. Dyslipidemia -Patient is on statin therapy, continued at home dose 10. Gout ?Patient is on allopurinol 11. DVT prophylaxis ?Patient is on Eliquis 12. Anemia - Secondary to chronic disorder as well as anemia of end-stage renal disease. Monitored H&H patient did not meet criteria for blood transfusion Physical Exam Narrative GENERAL: cooperative HEENT: Atraumatic; EYES; Anicteric, Normal Conjunctiva NECK; supple, normal thyroid, RESPIRATORY: Diminished to auscultation CARDIOVASCULAR: Regular S1 S2, GI: soft, normoactive bowel sounds, : No Renal angle tenderness; EXTREMITIES: No edema, no clubbing, MUSCULOSKELETAL: no muscle waisting NEURO: Awake; no lateralizing signs. SKIN: No Rash PSYCH; Flat affect Weight / BMI Weight Weight: 65.1 kg Body Mass Index (BMI) 23.8 ABG / Lab / Microbiology Data Result Diagrams: 06/01/21 04:55 06/01/21 04:55 Laboratory: Laboratory Results - last 24 hr 05/31/21 13:14: POC Glucose 171 H 05/31/21 15:50: Sodium 144, Potassium 3.2 L, Chloride 119 H, Carbon Dioxide 16.0 L, Anion Gap 9, BUN 48 H, Creatinine 5.31 H, Estim Creat Clear Calc 6.84, Est GFR (MDRD) Af Amer 10 L, Est GFR (MDRD) Non-Af 8 L, BUN/Creatinine Ratio 9.0 L, Glucose 161 H, Calcium 9.5 05/31/21 22:00: POC Glucose 225 H 06/01/21 04:55: WBC 7.2, RBC 2.76 L, Hgb 8.6 L, Hct 27.2 L, MCV 98.6, MCH 31.2, MCHC 31.6 L, RDW Std Deviation 47.5 H, RDW Coeff of Ritchie 13.2, Plt Count 228, MPV 9.8, Immature Gran % (Auto) 0.100, Neut % (Auto) 67.5, Lymph % (Auto) 17.2 L, [place] % (Auto) 8.9, Eos % (Auto) 5.7 H, Baso % (Auto) 0.6, Absolute Neuts (auto) 4.9, Absolute Lymphs (auto) 1.24, Nucleated RBC % 0 06/01/21 04:55: Sodium 143, Potassium 3.4 L, Chloride 120 H, Carbon Dioxide 16.0 L, Anion Gap 7, BUN 43 H, Creatinine 4.73 H, Estim Creat Clear Calc 7.68, Est GFR (MDRD) Af Amer 11 L, Est GFR (MDRD) Non-Af 9 L, BUN/Creatinine Ratio 9.1 L, Glucose 156 H, Calcium 8.7, Magnesium 2.0 06/01/21 06:36: POC Glucose 153 H Radiography Diagnostic Testing: Radiology Impression Renal Ultrasound 05/31/21 07:00 IMPRESSION: Echogenic kidneys are suggestive of chronic medical renal disease. Electronically Signed: Markel Fisher MD at 14:55 EST , Service support , D/C Instructions Discharge Diet: No restrictions Discharge Activity: Return to Normal Activity Call your doctor if you observe: Fever of 101 or Higher, Shortness of breath, Fainting spells and Chest pain Meaningful Use Info Meaningful Use Diagnoses (Choose all that apply): None applicable Discharge Plan Admission Admit Date/Time: 05/30/21 19:21 Attending Provider: Too Maria Primary Care Provider: Keo Rondon Consulting Providers: Yanet Graham Discharge Orders/Prescriptions Prescriptions: New acetaminophen [Tylenol] 325 mg Tablet 650 mg PO Q6H PRN PRN (Reason: Pain Score 1-10/Temp > 100.7 F) Qty: 0 RF: 0 Continued levothyroxine 100 mcg tablet 100 mcg PO DAILY RF: 0 amlodipine 10 MG tablet 10 mg PO DAILY RF: 0 allopurinol 100 MG tablet 100 mg PO DAILY RF: 0 rosuvastatin [Crestor] 40 mg Tablet 40 mg PO QHS RF: 0 levetiracetam 500 MG tablet 250 mg PO BID RF: 0 atenolol 50 MG tablet 50 mg PO DAILY RF: 0 apixaban 2.5 MG tablet 2.5 mg PO DAILY RF: 0 Changed insulin glargine 100 UNITS/ML insulin pen 10 units SQ QHS Qty: 0 RF: 0 Discontinued furosemide 40 mg tablet 40 mg PO DAILY RF: 0 glimepiride 2 MG tablet 4 mg PO BID RF: 0 losartan 50 mg Tablet 50 mg PO BID RF: 0 tramadol 50 mg Tablet 50 mg PO BID PRN (Reason: Pain) RF: 0 Referrals / Follow Up: Yanet Graham MD [STAFF PHYSICIAN] - Within 2 Weeks Keo Rondon MD [Primary Care Provider] - Within 1 Week Disposition Disposition (needs filled in before D/C Order can be placed): Home, Self Care Charges/Coding Visit Charges Inpatient E&M: 71828 Disch Hosp
--- NOTE | 2021-06-01 10:41 | CASEMGMT ---
THEODORE CM in to discuss discharge plans with patient. Patient states she does not want HHC at this time. THEODORE CONWAY informed patient that if she would reconsider HHC once home she can follow-up with PCP. CM will continue to follow this patient and plan for a safe discharge.
[2021-06-01 11:16] LABS: Bedside Glucose 252 mg/dL (70-110)
== END 2021-06-01 12:55 | disposition home or self-care (01) | DRG 684 ==
LOC: ED 19:34 → MS2 19:37
PROVIDERS: Admitting Provider Hospitalist; Emergency Provider Emergency Medicine; PCP Internal Medicine; Visit Provider Internal Medicine
DX: N17.9 Acute kidney failure, unspecified (principal); E11.649 Type 2 diabetes mellitus with hypoglycemia without coma; E11.21 Type 2 diabetes mellitus with diabetic nephropathy; I48.0 Paroxysmal atrial fibrillation; G40.909 Epilepsy, unspecified, not intractable, without status epilepticus; E03.9 Hypothyroidism, unspecified; E78.00 Pure hypercholesterolemia, unspecified; Z79.4 Long term (current) use of insulin; N18.6 End stage renal disease; I48.91 Unspecified atrial fibrillation; M10.9 Gout, unspecified; E87.6 Hypokalemia; E78.5 Hyperlipidemia, unspecified; Z86.73 Personal history of transient ischemic attack (TIA), and cerebral infarction without residual deficits; Z87.891 Personal history of nicotine dependence; Z90.49 Acquired absence of other specified parts of digestive tract; Z63.4 Disappearance and death of family member; Z79.84 Long term (current) use of oral hypoglycemic drugs; Z66 Do not resuscitate
CPT/HCPCS: 36415; 76770; 80048; 80053; 82570; 82962; 83735; 83935; 84300; 84540; 85025; 97162; 97166; 99285; G0008; J7030; 90686; A4216